=== PATIENT | female | born 1970 | race Caucasian/White ===

== ENCOUNTER → 2021-05-21 14:31 | Outpatient (BNVA) | payer MEDICARE, MEDICAID, SELFPAY | PROVIDERS: PCP Nurse Practitioner Family; Visit Provider Psychiatry & Neurology Neurology | DX: G25.1 Drug-induced tremor (principal); G43.909 Migraine, unspecified, not intractable, without status migrainosus; G47.9 Sleep disorder, unspecified | CPT/HCPCS: 99212 ==

== ENCOUNTER → 2021-07-23 13:08 | Outpatient (BNVA) | payer MEDICARE, MEDICAID, SELFPAY | PROVIDERS: PCP Nurse Practitioner Family; Visit Provider Psychiatry & Neurology Neurology | DX: G43.909 Migraine, unspecified, not intractable, without status migrainosus (principal); G47.9 Sleep disorder, unspecified; G25.1 Drug-induced tremor | CPT/HCPCS: 99212 ==

== ENCOUNTER → 2021-11-26 12:58 | Outpatient (BNVA) | payer MEDICARE, MEDICAID, SELFPAY | PROVIDERS: PCP Nurse Practitioner Family; Visit Provider Psychiatry & Neurology Neurology | DX: G43.909 Migraine, unspecified, not intractable, without status migrainosus (principal); G47.9 Sleep disorder, unspecified; G25.1 Drug-induced tremor; Z79.899 Other long term (current) drug therapy | CPT/HCPCS: 99212 ==

== ENCOUNTER → 2022-03-03 10:02 | Outpatient (BNVA) | payer MEDICARE, MEDICAID, SELFPAY | PROVIDERS: PCP Internal Medicine Cardiovascular Disease; Visit Provider Psychiatry & Neurology Neurology | DX: G43.909 Migraine, unspecified, not intractable, without status migrainosus (principal); G47.9 Sleep disorder, unspecified; G25.1 Drug-induced tremor | CPT/HCPCS: 99212 ==

== ENCOUNTER → 2022-09-15 09:25 | Outpatient (BNVA) | payer MEDICARE, MEDICAID, SELFPAY | PROVIDERS: PCP Internal Medicine Cardiovascular Disease; Visit Provider Psychiatry & Neurology Neurology | DX: G43.909 Migraine, unspecified, not intractable, without status migrainosus (principal); G47.9 Sleep disorder, unspecified | CPT/HCPCS: 99212 ==

== ENCOUNTER 2022-10-14 08:05 | Outpatient (REF) | payer MEDICARE, MEDICAID, SELFPAY ==
--- NOTE | 2022-10-14 08:08 | EEG_ITS ---
This is a 16-channel EEG with an EKG lead. The patient is reported unresponsive during the tracing. Background EEG rhythm is slow and theta to delta range with intermittent sharply controlled left hemispheric discharges at times with phase reversal at P3. Cardiac lead did not reveal any significant abnormality. Some muscle and lead artifacts were noted. IMPRESSION: Abnormal EEG suggestive of bihemispheric dysfunction, but also somewhat suggestive of left hemispheric irritability. Partial or complex partial seizure disorder is a consideration. MD FRANK Martinez/WILLIE / [phone]
== END 2022-10-14 08:06 | disposition home or self-care (01) ==
LOC: HO.NEURO 08:05
PROVIDERS: PCP Internal Medicine Cardiovascular Disease; Visit Provider Psychiatry & Neurology Neurology
DX: R41.0 Disorientation, unspecified (principal); F09 Unspecified mental disorder due to known physiological condition
CPT/HCPCS: 36415; 80053; 82306; 82607; 82746; 84443; 85025; 85652; 95816

== ENCOUNTER 2022-10-14 09:23 | Outpatient (REF) | payer MEDICARE, MEDICAID, SELFPAY ==
[2022-10-14 09:34] LABS: MANUAL DIFF FLAG NO
[2022-10-14 09:50] LABS: Basophils Percent Auto 0.4 % (0-2); Eosinophils Absolute Auto 0.1 X10*3/uL (0.0-0.4); Hematocrit 37.1 % (37.0-47.0); Hemoglobin 12.2 g/dl (12.0-16.0); Imm Gran Abs Auto 0.14 X10*3/uL (0.00-0.03); Imm Gran Pct Auto 1.8 % (0.0-0.4); Lymphocytes Absolute Auto 1.5 X10*3/uL (1.2-4.9); Lymphocytes Percent Auto 19.4 % (20-40); Mean Corpuscular HGB Conc 32.9 g/dl (31.0-35.0); Mean Corpuscular Volume 94.4 fL (80.0-98.0); Mean Platelet Volume 10.2 fL (9.4-12.3); Monocytes Absolute Auto 0.9 X10*3/uL (0.1-1.2); Monocytes Percent Auto 11.3 % (2-11); Neutrophils Absolute Auto 5.1 x10*3/uL (2.0-8.3); Neutrophils Percent Auto 66.1 % (45-73); Platelet Count 238 X10*3/uL (160-400); Red Blood Count 3.93 X10*6/uL (4.20-5.50); Red Cell Distribution Width 12.5 % (11.0-16.0); White Blood Count 7.7 X10*3/uL (4.8-10.8)
[2022-10-14 10:18] LABS: Alanine Aminotransferase 18 U/L (0-31); Albumin Level 3.8 g/dL (3.5-5.0); Alkaline Phosphatase 117 U/L (39-117); Anion Gap 13 (12-20); Aspartate Amino Transferase 17 U/L (5-31); Bilirubin Total 0.4 mg/dL (0.0-1.0); Blood Urea Nitrogen 15 mg/dL (9-16); Carbon Dioxide 25 mmol/L (22-29); Chloride 108 mmol/L (96-108); Estimated Glomerular Filt Rate > 60; Glucose Random 172 mg/dL (60-115); Potassium 4.5 mmol/L (3.3-5.1); Sodium 141 mmol/L (135-145); Total Protein 6.7 g/dL (6.5-8.0)
[2022-10-14 10:52] LABS: Erythrocyte Sedimentation Rate 28 MM/HR (0-20)
[2022-10-14 10:58] LABS: Folate > 20.0 ng/mL (> or = 4.0); TSH reflex Free T4 2.11 uIU/mL (0.32-4.0); Vitamin B12 1173 pg/mL (200-900)
[2022-10-19 15:42] LABS: Vitamin D 25-OH, D2 <4 ng/mL; Vitamin D 25-OH, D3 44 ng/mL; Vitamin D 25-OH, Total 44 ng/mL (30-100)
== END 2022-10-14 09:24 | disposition home or self-care (01) ==
LOC: HO.LAB 09:23
PROVIDERS: Psychiatry & Neurology Neurology; Visit Provider Internal Medicine Hypertension Specialist
DX: Z13.89 Encounter for screening for other disorder (principal)
CPT/HCPCS: 36415; 80053; 82306; 82607; 82746; 84443; 85025; 85652

== ENCOUNTER 2022-10-18 12:54 | Outpatient (REF) | payer MEDICARE, MEDICAID, SELFPAY ==
--- NOTE | ~2022-10-18 | MR_ITS ---
EXAMINATION: MR BRAIN WITHOUT CONTRAST CLINICAL INFORMATION: 52-year-old with cognitive disorder. COMPARISON: 03/02/2018 MRI TECHNIQUE: Multiplanar multisequence MR imaging of the brain was done without IV contrast. FINDINGS: Brain Volume: Redemonstrated is [id number] generalized diffuse frontoparietal brain parenchymal volume loss, which appears grossly stable when compared to previous study. This is associated with prominent CSF spaces along both cerebral convexities, unchanged. Structural: No malformations. Brain and Meninges: DWI sequence demonstrates no restricted diffusion to suggest acute or subacute cerebral ischemia. Redemonstrated are a few scattered tiny zones of FLAIR/T2 signal hyperintensity in the white matter of the centrum semiovale bilaterally, stable in appearance, which are nonspecific findings. No new parenchymal signal abnormalities are seen. Gradient refocused imaging demonstrates no abnormal susceptibility-weighted signal loss to suggest hemorrhage, hemosiderin staining or abnormal mineralization. No extra-axial fluid collections, significant space-occupying process or mass effect are identified. Ventricles and Subarachnoid Spaces: The ventricular system and subarachnoid spaces are within normal range; there is no hydrocephalus, stable in appearance. Orbital Structures: The visualized orbital structures are grossly unremarkable within the limitations of the study. Vascular: Signal voids are noted in the visualized major intracranial vessels. Osseous Structures, Sinuses/Mastoids, Extracranial Soft Tissues: Osseous marrow signal intensity appears within normal limits. There are retention cysts and mucosal thickening in both maxillary sinuses which have developed since the previous exam with minor mucosal thickening in the ethmoid complex. The visualized extracranial soft tissue structures are unremarkable and unchanged. MR/MR head/brain wo con IMPRESSION: 1. Stable minimal scattered nonspecific white matter T2 hyperintensities in the cerebral hemispheres. 2. Stable [id number] generalized diffuse frontoparietal brain parenchymal volume loss. 3. No acute intracranial process. 4. Paranasal sinus inflammatory changes, which are new since the previous exam, as described above.
== END 2022-10-18 12:55 | disposition home or self-care (01) ==
LOC: HO.MRI 12:54
PROVIDERS: Visit Provider Psychiatry & Neurology Neurology
DX: F09 Unspecified mental disorder due to known physiological condition (principal)
CPT/HCPCS: 70551

== ENCOUNTER → 2022-11-17 11:30 | Outpatient (BNVA) | payer MEDICARE, MEDICAID, SELFPAY | PROVIDERS: PCP Internal Medicine Cardiovascular Disease; Visit Provider Nurse Practitioner Family | DX: G43.909 Migraine, unspecified, not intractable, without status migrainosus (principal); G47.9 Sleep disorder, unspecified; G25.1 Drug-induced tremor; F09 Unspecified mental disorder due to known physiological condition; R41.0 Disorientation, unspecified | CPT/HCPCS: 99212 ==

== ENCOUNTER 2023-02-23 08:55 | Outpatient (AMB) | payer MEDICARE, MEDICAID, SELFPAY ==
--- NOTE | 2023-02-23 09:00 | A.OFFVIS_ITS ---
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: No Allergies acetaminophen [From PERCOCET] Allergy (Unknown, Verified 02/23/23 09:) UNKNOWN barium sulfate [BARIUM SULFATE] Allergy (Unknown, Verified 02/23/23 09:) UNKNOWN bupropion [From WELLBUTRIN] Allergy (Unknown, Verified 02/23/23 09:) UNK cefaclor [From CECLOR] Allergy (Unknown, Verified 02/23/23 09:) UNKNOWN erythromycin base [ERYTHROMYCIN BASE] Allergy (Unknown, Verified 02/23/23:) UNKNOWN fluoxetine [From PROZAC] Allergy (Unknown, Verified 02/23/23 09:) UNKNOWN gabapentin [GABAPENTIN] Allergy (Unknown, Verified 02/23/23 09:) UNKNOWN Iodinated Contrast Media [IV CONTRAST] Allergy (Unknown, Verified 02/23/23 09:) UNKNOWN loratadine [LORATADINE] Allergy (Unknown, Verified 02/23/23 09:) UNKNOWN metformin [METFORMIN] Allergy (Unknown, Verified 02/23/23 09:) UNKNOWN oxycodone [From PERCOCET] Allergy (Unknown, Verified 02/23/23 09:) UNKNOWN paroxetine [From PAXIL] Allergy (Unknown, Verified 02/23/23 09:) UNKNOWN penicillin G Allergy (Unknown, Verified 02/23/23 09:) unknown Penicillins [PENICILLINS] Allergy (Unknown, Verified 02/23/23 09:) UNKNOWN quetiapine [From SEROQUEL] Allergy (Unknown, Verified 02/23/23 09:) UNKNOWN risperidone [From RISPERDAL] Allergy (Unknown, Verified 02/23/23 09:) UNKNOWN soy [SOY] Allergy (Unknown, Verified 02/23/23 09:) UNKNOWN venlafaxine [From EFFEXOR] Allergy (Unknown, Verified 02/23/23 09:) UNKNOWN BuPROPion HCl Allergy (Unknown, Uncoded 02/23/23 09:) unknown Fluoxetine Allergy (Unknown, Uncoded 02/23/23 09:) unknown iodinated contrast media, oral Allergy (Unknown, Uncoded 02/23/23 09:01) unknown HPI HPI Comments History of Present Illness Details 52 y/o female comes for follow up of miriam g induced tremors and migraines. She is accompanied by her TRANSITION MGR RN who helps her history. She has visiting nurse service, twice a day. Pt's medication box is locked. RN gives her medications. Pt's TRANSITION MGR RN usually helps meals, cleaning, grocery shopping and daily activities. She has good days and bad days, but generally her memory is not good, can't remember things and forgetful. She states that her memory is ok today, can't remember other days. Sometimes she can't remember she ate and then eat again. Pt states that she did not have any headache. Pt is on topiramate 25 mg, and propranolol ER 120 mg daily. Tremors have improved and are intermittent. She is on cogentin 1mg bid. [facility] Medical History Confusion Cognitive disorder Pseudoseizures Migraine [place] toxicity Drug-induced tremor Benign essential tremor Diabetes Asthma Bipolar disorder Surgical History Hx of cholecystectomy Family History Father Diabetes mellitus Heart disease Stroke Hyperlipidemia Mother Diabetes mellitus Alzheimer disease Bipolar 1 disorder Daughter Bipolar 1 disorder Maternal Aunt Alzheimer disease Paternal Aunt Alzheimer disease Social History Alcohol intake: current Alcohol intake frequency: holidays/special occasions only Patient Tobacco Use Status: Never used Tobacco Review of Systems Const All systems reviewed & are unremarkable except as noted in HPI and below Neuro Reports Abnormal speech present (mild hypophonia) Physical Exam Vital Signs: Last Vital Signs Pulse 63 02/23/23 09:06 BP 112/70 02/23/23 09:06 Pulse Ox 98 02/23/23 09:06 Oxygen Delivery Method Room Air 02/23/23 09:06 Const Orientation/consciousness: patient oriented x3 Eyes Pupils: Equal, round and reactive pupils present Neuro Other: very mild farshad postural and action tremors in UE no head tremors General: patient oriented x3 and moves all extremities Cranial nerves: Yes Equal, round and reactive pupils present, Yes Normal facial strength present, Yes Midline tongue present and Yes Other cranial nerve findings present Cognition (Neuro): normal cognition (anxious -) Speech: Abnormal speech present (mild hypophonia) Gait exam (Neuro): Other gait observations present (mild slowness, no arm swings bilaterally) Motor exam (neuro): 5/5 motor strength present throughout and Other motor observations present (mild bradykinesia , no evidence of tardive dyskinesia ) Assessment & Plan Assessment & Plan (1) Migraine: Code(s): G43.909 - Migraine, unspecified, not intractable, without status migrainosus (2) Sleep disorder: Code(s): G47.9 - Sleep disorder, unspecified (3) Drug-induced tremor: Code(s): G25.1 - Drug-induced tremor (4) Cognitive disorder: Code(s): F09 - Unspecified mental disorder due to known physiological condition Plan Continue to take propranalol LA 120mg qd with cogentin 1 mg BID. Continue topiramate 25 mg qd for migraine prevention. Monitor the migraine frequency and intensity. Coding Level of Care Code Est Pt Level 4 (28099) Diagnoses Migraine G43.909 Sleep disorder G47.9 Drug-induced tremor G25.1 Cognitive disorder F09
[2023-02-23 09:06] VITALS: BP 112/70; PULSE 63; O2SAT 98
== END 2023-02-23 09:34 | disposition home or self-care (01) ==
PROVIDERS: PCP Internal Medicine Cardiovascular Disease; Visit Provider Nurse Practitioner Family
DX: G43.909 Migraine, unspecified, not intractable, without status migrainosus (principal); G47.9 Sleep disorder, unspecified; G25.1 Drug-induced tremor; R41.89 Other symptoms and signs involving cognitive functions and awareness
CPT/HCPCS: 99214

== ENCOUNTER → 2023-02-23 08:55 | Outpatient (BNVA) | payer MEDICARE, MEDICAID, SELFPAY | PROVIDERS: PCP Internal Medicine Cardiovascular Disease; Visit Provider Nurse Practitioner Family | DX: G43.909 Migraine, unspecified, not intractable, without status migrainosus (principal); G47.9 Sleep disorder, unspecified; G25.1 Drug-induced tremor; F09 Unspecified mental disorder due to known physiological condition | CPT/HCPCS: 99212 ==

== ENCOUNTER 2023-05-06 12:04 | Outpatient (AMB) | payer MEDICARE, MEDICAID, SELFPAY ==
[2023-05-06 12:23] VITALS: BP 114/70; PULSE 74; O2SAT 97
--- NOTE | 2023-05-06 12:23 | MHC.OFFWIV ---
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, Congestion, runny Nose Intake Note: pt is here for c/o cough, congestion, runny nose Patient Tobacco Use Status: Never used Tobacco Allergies acetaminophen [From PERCOCET] Allergy (Unknown, Verified 05/06/23 12:23) UNKNOWN barium sulfate [BARIUM SULFATE] Allergy (Unknown, Verified 05/06/23 12:23) UNKNOWN bupropion [From WELLBUTRIN] Allergy (Unknown, Verified 05/06/23 12:23) UNK cefaclor [From CECLOR] Allergy (Unknown, Verified 05/06/23 12:23) UNKNOWN erythromycin base [ERYTHROMYCIN BASE] Allergy (Unknown, Verified 05/06/23 12:23) UNKNOWN fluoxetine [From PROZAC] Allergy (Unknown, Verified 05/06/23 12:23) UNKNOWN gabapentin [GABAPENTIN] Allergy (Unknown, Verified 05/06/23 12:23) UNKNOWN Iodinated Contrast Media [IV CONTRAST] Allergy (Unknown, Verified 05/06/23 12:23) UNKNOWN loratadine [LORATADINE] Allergy (Unknown, Verified 05/06/23 12:23) UNKNOWN metformin [METFORMIN] Allergy (Unknown, Verified 05/06/23 12:23) UNKNOWN oxycodone [From PERCOCET] Allergy (Unknown, Verified 05/06/23 12:23) UNKNOWN paroxetine [From PAXIL] Allergy (Unknown, Verified 05/06/23 12:23) UNKNOWN penicillin G Allergy (Unknown, Verified 05/06/23 12:23) unknown Penicillins [PENICILLINS] Allergy (Unknown, Verified 05/06/23 12:23) UNKNOWN quetiapine [From SEROQUEL] Allergy (Unknown, Verified 05/06/23 12:23) UNKNOWN risperidone [From RISPERDAL] Allergy (Unknown, Verified 05/06/23 12:23) UNKNOWN soy [SOY] Allergy (Unknown, Verified 05/06/23 12:23) UNKNOWN venlafaxine [From EFFEXOR] Allergy (Unknown, Verified 05/06/23 12:23) UNKNOWN BuPROPion HCl Allergy (Unknown, Uncoded 02/23/23 09:01) unknown Fluoxetine Allergy (Unknown, Uncoded 02/23/23 09:01) unknown iodinated contrast media, oral Allergy (Unknown, Uncoded 02/23/23 09:01) unknown Do you need a note to return to daycare/school/sports/work: Yes HPI HPI Comments History of Present Illness Details Irwin is a 52yo F who 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 with 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 for cough Ongoing for > 1 week Sometimes productive No CP or SOB Using inhalers for baseline asthma without relief No fever, chills, congestion, ST or body aches Visiting HAND PROFILER wanted her to have chest xray COVID at home test was negative No other complaints PFSH Medical History Confusion Cognitive disorder Pseudoseizures Migraine [place] toxicity Drug-induced tremor Benign essential tremor Diabetes Asthma Bipolar disorder Surgical History Hx of cholecystectomy Family History Father Diabetes mellitus Heart disease Stroke Hyperlipidemia Mother Diabetes mellitus Alzheimer disease Bipolar 1 disorder Daughter Bipolar 1 disorder Maternal Aunt Alzheimer disease Paternal Aunt Alzheimer disease Social History Alcohol intake: current Alcohol intake frequency: holidays/special occasions only Patient Tobacco Use Status: Never used Tobacco Review of Systems Const Denies chills, Denies fever(s) and Denies headache(s) ENT Denies otalgia, Denies headache(s), Denies nasal discharge and Denies sore throat Card Denies chest pain and Denies dyspnea Resp Reports chest congestion, Reports cough and Denies dyspnea GI Denies abdominal pain Neuro Denies headache(s) Physical Exam Vital Signs: Last Vital Signs Pulse 74 05/06/23 12:23 BP 114/70 05/06/23 12:23 Pulse Ox 97 05/06/23 12:23 Oxygen Delivery Method Room Air 05/06/23 12:23 General: Non-toxic, NAD. Speaking full sentences. Skin: Warm dry throughout Eye: EOMI HENT: Airway patent. Uvula midline. No pharyngeal erythema or edema. No BUFFING WHEEL FORMER AUTOMATIC. Bilateral canals clear. TM non-erythematous, non-bulging. No TM perforation or hemotympanum noted. Respiratory: CTA bilaterally. No wheezes, rales or rhonchi Cardiac: RRR. No murmur MSK: Full ROM extremities. Neurology: Alert. No aphasia or facial droop. Gait without abnormality Psych: Good mood and affect Assessment & Plan Assessment & Plan (1) Cough: Code(s): R05.9 - Cough, unspecified Qualifiers: Cough type: acute Qualified Code(s): R05.1 - Acute cough Plan: Patient seen and evaluated. Will order xray per request visiting HAND PROFILER to r/o PNA as pt is non-specific as to timeline of current illness (states > 1 week a long time ) I viewed xray as negative Recommended PCP follow up Patient gave verbal understanding and had no additional questions or concerns at time of discharge All questions answered Orders: Orders XR chest 2V Today R05.9 - Cough, unspecified Coding Level of Care Code Est Pt Level 3 (18040) Diagnoses Acute cough R05.1 Cough type: acute
== END 2023-05-06 13:51 | disposition home or self-care (01) ==
PROVIDERS: PCP Internal Medicine Cardiovascular Disease; Visit Provider Physician Assistant
DX: R05.1 Acute cough (principal)
CPT/HCPCS: 99213

== ENCOUNTER 2023-05-06 13:02 | Outpatient (REF) | payer MEDICARE, MEDICAID, SELFPAY ==
--- NOTE | ~2023-05-06 | XR_ITS ---
EXAMINATION: XR CHEST CLINICAL INFORMATION: Cough. COMPARISON: None available. TECHNIQUE: 2 views of the chest were obtained. FINDINGS: No significant abnormality is noted involving the heart, lungs, mediastinum, bony thorax or soft tissues. XR/XR chest 2V IMPRESSION: Unremarkable chest examination.
== END 2023-05-06 13:03 | disposition home or self-care (01) ==
LOC: HO.HMGCX 13:02
PROVIDERS: PCP Internal Medicine Cardiovascular Disease; Visit Provider Physician Assistant
DX: R05.9 Cough, unspecified (principal)
CPT/HCPCS: 71046

== ENCOUNTER 2023-06-08 11:38 | Outpatient (AMB) | payer MEDICARE, MEDICAID, SELFPAY ==
--- NOTE | 2023-06-08 11:42 | MHC.OFFVIS ---
Intake Vital Signs 06/08/23 11:50 Height 5 ft 1 in Weight 157 lb 6 oz BMI 29.7 BP 120/70 Blood Pressure Location Lt brachial Position Sitting Pulse 72 Pulse Source Pulse Oximeter Pulse Oximetry (%) 98 Oxygen Delivery Method Room Air Intake Visit Reasons: 3 mo f/u - Tremors - Confirmed Intake Note: Patient presents for three months f/u would like to be off all medicine for ever and tremors not as bad they used to be Allergies acetaminophen [From PERCOCET] Allergy (Unknown, Verified 06/08/23 11:48) UNKNOWN barium sulfate [BARIUM SULFATE] Allergy (Unknown, Verified 06/08/23 11:48) UNKNOWN bupropion [From WELLBUTRIN] Allergy (Unknown, Verified 06/08/23 11:48) UNK cefaclor [From CECLOR] Allergy (Unknown, Verified 06/08/23 11:48) UNKNOWN erythromycin base [ERYTHROMYCIN BASE] Allergy (Unknown, Verified 06/08/23 11:48) UNKNOWN fluoxetine [From PROZAC] Allergy (Unknown, Verified 06/08/23 11:48) UNKNOWN gabapentin [GABAPENTIN] Allergy (Unknown, Verified 06/08/23 11:48) UNKNOWN Iodinated Contrast Media [IV CONTRAST] Allergy (Unknown, Verified 06/08/23 11:48) UNKNOWN loratadine [LORATADINE] Allergy (Unknown, Verified 06/08/23 11:48) UNKNOWN metformin [METFORMIN] Allergy (Unknown, Verified 06/08/23 11:48) UNKNOWN oxycodone [From PERCOCET] Allergy (Unknown, Verified 06/08/23 11:48) UNKNOWN paroxetine [From PAXIL] Allergy (Unknown, Verified 06/08/23 11:48) UNKNOWN penicillin G Allergy (Unknown, Verified 06/08/23 11:48) unknown Penicillins [PENICILLINS] Allergy (Unknown, Verified 06/08/23 11:48) UNKNOWN quetiapine [From SEROQUEL] Allergy (Unknown, Verified 06/08/23 11:48) UNKNOWN risperidone [From RISPERDAL] Allergy (Unknown, Verified 06/08/23 11:48) UNKNOWN soy [SOY] Allergy (Unknown, Verified 06/08/23 11:48) UNKNOWN venlafaxine [From EFFEXOR] Allergy (Unknown, Verified 06/08/23 11:48) UNKNOWN BuPROPion HCl Allergy (Unknown, Uncoded 02/23/23 09:01) unknown Fluoxetine Allergy (Unknown, Uncoded 02/23/23 09:01) unknown iodinated contrast media, oral Allergy (Unknown, Uncoded 02/23/23 09:) unknown HPI HPI Comments History of Present Illness Details 52 y/o female comes for follow up of drug induced tremors and migraines. She is accompanied by her RENDERING EQUIPMENT TENDER who helps her history. She has visiting nurse service, twice a day. Pt's medication box is locked. RN gives her medications. Pt's RENDERING EQUIPMENT TENDER usually helps meals, cleaning, grocery shopping and daily activities. She has good days and bad days, but generally her memory is not good, can't remember things and forgetful. Pt states that she did not have any headache. Pt is on topiramate 25 mg, and propranolol ER 120 mg daily. Tremors have improved and are intermittent. She is on cogentin 1mg bid and propranolol ER 120 mg daily. She can be unbalanced but no falls. She sleeps well and eating well. She is not physically active but goes to [employer] twice a week. [facility] Medical History Confusion Cognitive disorder Pseudoseizures Migraine [place] toxicity Drug-induced tremor Benign essential tremor Diabetes Asthma Bipolar disorder Surgical History Hx of cholecystectomy Family History Father Diabetes mellitus Heart disease Stroke Hyperlipidemia Mother Diabetes mellitus Alzheimer disease Bipolar 1 disorder Daughter Bipolar 1 disorder Maternal Aunt Alzheimer disease Paternal Aunt Alzheimer disease Social History Alcohol intake: current Alcohol intake frequency: holidays/special occasions only Patient Tobacco Use Status: Never used Tobacco Review of Systems Const All systems reviewed & are unremarkable except as noted in HPI and below Neuro Reports Abnormal speech present (mild hypophonia) Physical Exam Vital Signs: Last Vital Signs Pulse 72 06/08/23 11:50 BP 120/70 06/08/23 11:50 Pulse Ox 98 06/08/23 11:50 Oxygen Delivery Method Room Air 06/08/23 11:50 BMI result Body Mass Index 29.7 Const Orientation/consciousness: patient oriented x3 Eyes Pupils: Equal, round and reactive pupils present Neuro Other: very mild farshad postural and action tremors in UE no head tremors General: patient oriented x3 and moves all extremities Cranial nerves: Yes Equal, round and reactive pupils present, Yes Normal facial strength present, Yes Midline tongue present and Yes Other cranial nerve findings present Cognition (Neuro): normal cognition (anxious -) Speech: Abnormal speech present (mild hypophonia) Gait exam (Neuro): Other gait observations present (mild slowness, no arm swings bilaterally) Motor exam (neuro): 5/5 motor strength present throughout and Other motor observations present (mild bradykinesia , no evidence of tardive dyskinesia ) Assessment & Plan Assessment & Plan (1) Migraine: Code(s): G43.909 - Migraine, unspecified, not intractable, without status migrainosus (2) Sleep disorder: Code(s): G47.9 - Sleep disorder, unspecified (3) Drug-induced tremor: Code(s): G25.1 - Drug-induced tremor (4) Cognitive disorder: Code(s): F09 - Unspecified mental disorder due to known physiological condition Plan Continue to take propranalol LA 120mg qd with cogentin 1 mg BID. Continue topiramate 25 mg qd for migraine prevention. Monitor the migraine frequency and intensity. Coding Level of Care Code Est Pt Level 4 (12576) Diagnoses Migraine G43.909 Sleep disorder G47.9 Drug-induced tremor G25.1 Cognitive disorder F09
[2023-06-08 11:50] VITALS: BP 120/70; PULSE 72; O2SAT 98; BMI 29.7
== END 2023-06-08 12:15 | disposition home or self-care (01) ==
PROVIDERS: PCP Internal Medicine Cardiovascular Disease; Visit Provider Nurse Practitioner Family
DX: G43.909 Migraine, unspecified, not intractable, without status migrainosus (principal); G47.9 Sleep disorder, unspecified; G25.1 Drug-induced tremor; R41.89 Other symptoms and signs involving cognitive functions and awareness
CPT/HCPCS: 99214

== ENCOUNTER → 2023-06-08 11:38 | Outpatient (BNVA) | payer MEDICARE, MEDICAID, SELFPAY | PROVIDERS: PCP Internal Medicine Cardiovascular Disease; Visit Provider Nurse Practitioner Family | DX: G43.909 Migraine, unspecified, not intractable, without status migrainosus (principal); G47.9 Sleep disorder, unspecified; G25.1 Drug-induced tremor; F09 Unspecified mental disorder due to known physiological condition | CPT/HCPCS: 99212 ==

== ENCOUNTER 2024-02-21 12:20 | Outpatient (AMB) | payer MEDICARE, MEDICAID, SELFPAY ==
[2024-02-21 12:34] VITALS: BP 126/78; BMI 29.7
--- NOTE | 2024-02-21 12:34 | MHC.OFFVIS ---
Vital Signs 02/21/24 12:34 Height 5 ft 1 in Weight 157 lb BMI 29.7 BP 126/78 Blood Pressure Location Rt brachial Position Sitting Intake Visit Reasons: 6 mnts for Tremors Intake Note: Patient presents for tremors. Allergies acetaminophen [From PERCOCET] Allergy (Unknown, Verified 02/21/24 12:36) UNKNOWN barium sulfate [BARIUM SULFATE] Allergy (Unknown, Verified 02/21/24 12:36) UNKNOWN bupropion [From WELLBUTRIN] Allergy (Unknown, Verified 02/21/24 12:36) UNK cefaclor [From CECLOR] Allergy (Unknown, Verified 02/21/24 12:36) UNKNOWN erythromycin base [ERYTHROMYCIN BASE] Allergy (Unknown, Verified 02/21/24 12:36) UNKNOWN fluoxetine [From PROZAC] Allergy (Unknown, Verified 02/21/24 12:36) UNKNOWN gabapentin [GABAPENTIN] Allergy (Unknown, Verified 02/21/24 12:36) UNKNOWN Iodinated Contrast Media [IV CONTRAST] Allergy (Unknown, Verified 02/21/24 12:36) UNKNOWN loratadine [LORATADINE] Allergy (Unknown, Verified 02/21/24 12:36) UNKNOWN metformin [METFORMIN] Allergy (Unknown, Verified 02/21/24 12:36) UNKNOWN oxycodone [From PERCOCET] Allergy (Unknown, Verified 02/21/24 12:36) UNKNOWN paroxetine [From PAXIL] Allergy (Unknown, Verified 02/21/24 12:36) UNKNOWN penicillin G Allergy (Unknown, Verified 02/21/24 12:36) unknown Penicillins [PENICILLINS] Allergy (Unknown, Verified 02/21/24 12:36) UNKNOWN quetiapine [From SEROQUEL] Allergy (Unknown, Verified 02/21/24 12:36) UNKNOWN risperidone [From RISPERDAL] Allergy (Unknown, Verified 02/21/24 12:36) UNKNOWN soy [SOY] Allergy (Unknown, Verified 02/21/24 12:36) UNKNOWN venlafaxine [From EFFEXOR] Allergy (Unknown, Verified 02/21/24 12:36) UNKNOWN BuPROPion HCl Allergy (Unknown, Uncoded 02/21/24 12:36) unknown Fluoxetine Allergy (Unknown, Uncoded 02/21/24 12:36) unknown iodinated contrast media, oral Allergy (Unknown, Uncoded 02/21/24 12:36) unknown Medication List - Last Reconciled 02/21/24 by Mariposa Casillas MD albuterol sulfate 90 mcg/actuation 0 mcg inhalation benztropine 1 mg PO BID 30 days blood sugar diagnostic (FreeStyle Lite Strips) As directed budesonide-formoterol 160-4.5 mcg/actuation (Symbicort) 2 puffs inhalation Q12H divalproex 500 mg PO .am divalproex ER 1,000 mg PO BEDTIME insulin detemir U-100 (Levemir U-100 Insulin) 34 units subcut daily; insulin syringe-needle U-100 (BD Insulin Syringe Ultra-Fine) As directed lancets (FreeStyle Lancets) As directed levothyroxine 50 mcg PO DAILY lurasidone 120 mg PO DAILY oytcpyuitswq-vqby-sntdm acid 18-400 mg-mcg (Certavite-Antioxidant) 1 tab PO DAILY oxcarbazepine 600 mg PO BID pantoprazole 20 mg PO DAILY pravastatin 40 mg PO DAILY pravastatin 40 mg PO DAILY propranolol ER 120 mg PO DAILY topiramate 25 mg PO DAILY umeclidinium 62.5 mcg/actuation (Incruse Ellipta) 1 inh PO DAILY HPI Comments Details: 53 y/o female comes for follow up of drug induced tremors and migraines. she is concerned about her memory issues.Mood is stable.Its more short term memory issues. The cognition fluctuates She is accompanied by her BOX FEEDER who helps her history. She has visiting nurse service, twice a day. Pt's medication box is locked. RN gives her medications. Pt's BOX FEEDER usually helps meals, cleaning, grocery shopping and daily activities. Pt states that she did not have any headache. Pt is on topiramate 25 mg, and propranolol ER 120 mg daily. Tremors have improved and are intermittent. She is on cogentin 1mg bid and propranolol ER 120 mg daily. She can be unbalanced but no falls. She sleeps well and eating well. She is not physically active but goes to voodoo twice a week. [facility] Medical History Confusion Cognitive disorder Pseudoseizures Migraine [place] toxicity Drug-induced tremor Benign essential tremor Diabetes Asthma Bipolar disorder Surgical History Hx of cholecystectomy Family History Father Diabetes mellitus Heart disease Stroke Hyperlipidemia Mother Diabetes mellitus Alzheimer disease Bipolar 1 disorder Daughter Bipolar 1 disorder Maternal Aunt Alzheimer disease Paternal Aunt Alzheimer disease Social History Alcohol intake: current Alcohol intake frequency: holidays/special occasions only Patient Tobacco Use Status: Never used Tobacco Review of Systems Neuro Reports Abnormal speech present (mild hypophonia) Physical Exam Vital Signs: Last Vital Signs BP 126/78 02/21/24 12:34 BMI result Body Mass Index 29.7 Const Orientation/consciousness: patient oriented x3 Eyes Pupils: Equal, round and reactive pupils present Neuro Other: very mild farshad postural and action tremors in UE no head tremors General: patient oriented x3 and moves all extremities Cranial nerves: Yes Equal, round and reactive pupils present, Yes Normal facial strength present, Yes Midline tongue present and Yes Other cranial nerve findings present Cognition (Neuro): normal cognition (anxious -) Speech: Abnormal speech present (mild hypophonia) Gait exam (Neuro): Other gait observations present (mild slowness, no arm swings bilaterally) Motor exam (neuro): 5/5 motor strength present throughout and Other motor observations present (mild bradykinesia , no evidence of tardive dyskinesia ) Orientation What is the (year) (season) (date) (day) (month)?: year, season, day and month Where are we (state) (county) (town or city) (hospital) (floor)?: state, town or city, hospital/clinic and floor Registration Name of 3 unrelated objects clearly and slowly, then ask patient to repeat all 3 of them. (1st repeat determines score. Make sure they can repeat all three): object 1, object 2 and object 3 Attention & Calculation (CHOOSE ONE) Spell WORLD backwards (DLROW): 5 letters Recall Ask patient to repeat the 3 items from question #3.: object 1, object 2 and object 3 Language Show patient a wristwatch & ask what it is. Repeat for pencil.: watch and pencil Ask the patient to repeat the phrase 'No ifs, ands, or buts' after you.: correct Ask the patient to 'take a piece of paper with their right hand' 'fold paper in half' 'place paper on floor': take paper in right hand, fold paper in half and place paper on floor Print the sentence 'CLOSE YOUR EYES' on a piece. If patient actually closes eyes then score.: followed written direction Give patient a blank piece of paper & ask to write a sentence. Score if it contains a noun & verb.: sentence contains subject and verb Ask patient to copy figure of intersecting pentagons exactly. Score if all 10 angles & 2 intersects are included.: all 10 angles present & 2 are intersected Score Score: 28 Assessment & Plan Assessment & Plan (1) Migraine: Code(s): G43.909 - Migraine, unspecified, not intractable, without status migrainosus Qualifiers: Migraine type: unspecified Status migrainosus presence: without status migrainosus Intractability: not intractable Qualified Code(s): G43.909 - Migraine, unspecified, not intractable, without status migrainosus (2) Sleep disorder: Code(s): G47.9 - Sleep disorder, unspecified (3) Drug-induced tremor: Code(s): G25.1 - Drug-induced tremor Category: Medical (4) Cognitive disorder: Code(s): F09 - Unspecified mental disorder due to known physiological condition Category: Medical Plan Continue to take propranalol LA 120mg qd with cogentin 1 mg BID. Continue topiramate 25 mg qd for migraine prevention. Monitor the migraine frequency and intensity. she did well on MINI MENTAL STATUS EXAM I will refer her to cognitive therapy Orders: Referrals Speech and Hearing Referral F09 - Unspecified mental disorder due to known physiological condition Coding Level of Care Code Est Pt Level 4 (53743) Complex EM visit Add On G2211 Diagnoses Migraine without status migrainosus, not intractable, unspecified migraine type G43.909 Migraine type: unspecified Status migrainosus presence: without status migrainosus Intractability: not intractable Sleep disorder G47.9 Drug-induced tremor G25.1 Cognitive disorder F09
== END 2024-02-21 13:05 | disposition home or self-care (01) ==
PROVIDERS: PCP Internal Medicine Cardiovascular Disease; Visit Provider Psychiatry & Neurology Neurology
DX: G43.909 Migraine, unspecified, not intractable, without status migrainosus (principal); F09 Unspecified mental disorder due to known physiological condition; G47.9 Sleep disorder, unspecified; G25.1 Drug-induced tremor
CPT/HCPCS: 99214; G2211

== ENCOUNTER → 2024-02-21 12:20 | Outpatient (BNVA) | payer MEDICARE, MEDICAID, SELFPAY | PROVIDERS: PCP Internal Medicine Cardiovascular Disease; Visit Provider Psychiatry & Neurology Neurology | DX: G43.009 Migraine without aura, not intractable, without status migrainosus (principal); G47.9 Sleep disorder, unspecified; G25.1 Drug-induced tremor | CPT/HCPCS: 99212 ==

== ENCOUNTER 2024-05-29 12:28 | Outpatient (RCR) | payer MEDICARE, MEDICAID, SELFPAY ==
--- NOTE | 2024-06-02 14:35 | MHC.SP.ADU ---
Referring provider: Mariposa Casillas MD Reason for Referral: Cognitive Assessment Type of Treatment: 52841 Standardized Cognitive Performance Testing, per hour Date of Plan of Treatment: 05/29/24 Onset of Symptoms/Illness: 02/21/24 Date Treatment Started: 05/29/24 Medical Diagnosis: Unspecified mental disorder due to known physiological condition. drug induced tremors, migraines, bipolar disorder Primary Speech Language Diagnosis: I69.911 Memory deficit Secondary Speech Language Diagnosis: R41.840 Attention and concentration deficit History Marlin Ponce is a 53 year old woman who came to the clinic today on referral from her Neurologist, Dr. Casillas. In February, Marlin expressed concern to Dr. Casillas about her memory. Today, at this appointment, she initially stated Everyone says I have a problem with my memory, but I don't. However at the end the evaluation she stated Everyone thinks I am faking my problems with my memory, but I really have a problem. On her intake form, Marlin endorsed frequently having difficulty expressing her thoughts and with focus and attention. She noted that she sometimes has difficulty with orientation/memory and problem solving, but no difficulty with following directions or understanding others. Notes from her physician indicate that she has been seeing her neurologist for needs associated with migraines and drug induced tremor. Marlin reported that she attended school through High School, mostly in [place] and [place], however her education was disrupted by a teen and marriage, which resulted in her moving in with her in a different state ([place]) before she had finished school. She reported that her marriage ended after she finished High School, leading to her relocation to this area with her daughter to briefly live with her mother and her mother's new boyfriend before living independently. She currently lives in [place], and currently and mostly has lived on disability, however she reported that she did work for [employer] for a period of time. Marlin has been involved with the [employer] for most of her life and is very active and dedicated to her brendon and brendon community. She was brought to today's appointment by a friend from the community. Medical information from her neurologist indicates Marlin has a diagnosis of bipolar disorder, with further indication that her mother and daughter also have this disorder. Further, information supplied indicate her mother, maternal aunt and paternal aunt all had Alzheimer's Disease. Marlin mentioned during the evaluation that her Mother had difficulty with her memory. Medical History: Other: cognitive disorder, pseudo-seizures, migraine, drug induced tremor, benign essential tremor, diabetes, asthma, bipolar disorder. Medication List: Please see chart. Recent Hospitalizations: No Respiratory Needs: Room Air Patient Orientation: Alert & Oriented x 4 Social History: Employment Status: Unemployed Highest level of education obtained: Completed High School/GED Current Living Situation: Lives independently in private residence in [place], with COMMERCIAL PHOTOGRAPHER assistance during the week. Past Speech Language Therapy: None reported. Other Therapies Seen in Current Calendar Year: None Reported Speech, Language, Cognition difficulties: Attention, Memory, Cognition Comments: On evaluation today, Marlin presents with a moderate to severe impairment of short term memory, learning/recall of new information and focus/attention. Quality of Life: Good Patient Stated Goal of Speech-Language Therapy: Assess for Cognitive Therapy Assessment Speech Production: Articulate Clinical Impression: Did Not Test Observations: No speech related issues were indicated, all within functional limits. Informal Voice Assessment: Voice Loudness: Normal Voice Nasal Resonance: Normal Voice Oral Resonance: Normal Voice Pitch: Normal Clinical Impression: Intact Clinicial Observations: No vocal issues indicated, all within functional limits. Tests of Cognition: RBANS Clinical Impression: Impaired Observations: The Repeatable Battery for the Assessment of Neuropsychological Status (RBANS) was used as a screening instrument to briefly assess Marlin?s cognitive skills. The RBANS-(Updated Form A) briefly assesses aspects of cognitive memory, language, and attention skills. The RBANS is considered a screening battery for cognitive function and is repeatable for the purpose of evaluating any changes in function. It is intended for use with adolescents and adults, ages 12 to 89 years. Composite domains assessed in this test are: Immediate Memory, Visuospatial/Constructional, Language, Attention, and Delayed Memory. Interpretation of test performance is based on normative data on individuals between ages 60-60. Marlin's performance is summarized below: IMMEDIATE MEMORY: This domain assesses the individual's ability to remember information immediately after it is presented. For the ?List Learning? task, Marlin was read a list of 10 words and asked to repeat back as many words as she could. She was then read the same list four times. Marlin found this task, overall, very frustrating. Initially, Marlin recalled four words from the list. On subsequent trials, she again recalled 4-5 items from the list, in a somewhat scattershot pattern, later explaining she was trying to focus each time on different parts of the list (indicating some degree of problem solving with the task). This resulted in a well below average score on this subtest. On the ?Story Memory? task, a brief story is read by the examiner two times, with the subject required to repeat back as much as they remember each time. Marlin appeared somewhat overwhelmed by this two sentence story, recalling initially only three details. with repetitions she was able to recall three more details, showing some improvement. However the score on this subtest also fell in the well below average range. Both scores, cumulatively, were below average, indicating limited skills in short term memory for auditory information. List Learning Total Score: 7 Scaled Score: 2 Interpretation: Below Average Story Memory Total Score: 7 Scaled Score: 2 Interpretation: Below Average Immediate Memory Index Score: 44 Percentile: < 0.1 Interpretation: Below Average VISUOSPATIAL/CONSTRUCTIONAL: This domain assesses the individual's ability to perceive spatial relations and to construct a spatially accurate copy of a drawing. During the Figure Copy task, Marlin was given an example of a specific figure to copy onto a piece of paper. Individuals are scored on both the drawing accuracy and placement of 10 different target items. Marlin?s drawing was close to the example drawing; with evidence of unsteady hand (due to tremor) and omission of one element, demonstrating an average score. Marlin worked slowly and methodically through the Line Orientation task, in which an individual is asked to transpose two line segments of an angle to a compass diagram above it, and to label each segment. Despite her slow and methodical pace, she made a few errors. Her score on this test fell in the borderline average range. These scores combined for this domain, resulted in a borderline average score overall. Figure Copy Total Score: 17 Scaled Score: 8 Interpretation: Low Average Line Orientation Total Score: 14 Percentile Group: 17-25 Interpretation: Borderline Average Visuospatial/Constructional Index Score: 84 Percentile: 15 Interpretation: Borderline Average LANGUAGE: This domain assesses the individual's ability to respond verbally to either naming or retrieving learned material. Marlin was asked to label various line drawings in a responsive naming task; and then asked to name as many fruits and vegetables as she could in one minute in a Semantic Fluency task. Marlin accurately named 10 of 10 drawings, demonstrating an above average score. Marlin then labeled only fruits and vegetables in one minute, clearly struggling with this task and giving up before the time period ended. This resulted in a well below average score for this subtest. The combined scores resulted in a below average score overall for this domain. Marlin has no difficulty recalling words in a labelling task, however in a generative task with time constraints, she demonstrated marked difficulty. Picture Naming Total Score: 10 Percentile Group: 51-75 Interpretation: High average Semantic Fluency Total Score: 6 Scaled Score: 1 Interpretation: Below Average Language Index Score: 71 Percentile: 3 Interpretation: Below Average ATTENTION: This domain assesses the individual's capacity to remember and manipulate both visually and orally presented information in short-term memory storage Marlin was read aloud strings of numbers of varying lengths then asked to recall the numbers. Marlin accurately recalled strings of numbers up to 4 digits with no difficulty, but then scrambled or perseverated on numbers on strings of 5 digits or above. In the coding subtest, Marlin was asked to write numbers to their matching symbols as quickly and efficiently as possible within 90 seconds. Marlin worked very slowly, carefully and accurately through this task, marking only 23 symbols in allotted time, which resulted in a below average score. For the overall ?Attention? domain score, Anju fell in the below average range for her age group. Digit Span Total Score: 6 Scaled Score: 4 Interpretation: Below Average Coding Total Score: 23 Scaled Score: 3 Interpretation: Below Average Attention Index Score: 56 Percentile: 0.1 Interpretation: Below Average DELAYED MEMORY: This domain assesses the individual's anterograde memory capacity. Low scores indicate difficulties with recognition and retrieval of information from long-term memory stores. Marlin recalled none of the ten words on the wordlist that was presented to her earlier in the testing, demonstrating a below average score on this task. When given a recognition task regarding words on the list (i.e. ?Was apple on the list??), Marlin answered these yes/no questions which appeared to aid her recall, however her score was below average on this subtest. On recalling the story that was read to her at the beginning of the assessment, Marlin was unable to recall any element of the story, resulting in a below average score. Finally, when asked to recall the figure she peter earlier from memory, she produced a drawing unrelated to the original (a series of rectangles and boxes). In this domain overall, Marlin demonstrated below average ability for her age group. List Recall Total Score: 0 Percentile Group: <.2 Interpretation: Below Average List Recognition Total Score: 14 Percentile Group: <2 Interpretation: Below Average Story Recall Total Score: 0 Scaled Score: 1 Interpretation: Below Average Figure Recall Total Score: 0 Scaled Score: 1 Interpretation: Below Average Delayed Memory Index Score: 44 Percentile: < 0.1 Interpretation: Below Average The Total Test Score on the RBANS represents a summation of the individual index scores across five cognitive domains, providing an overall measure of a person's cognitive functioning, with a higher score indicating better cognitive performance; a mean score of 100 is considered average, and a standard deviation of 15 is used to interpret the severity of any cognitive impairment based on the individual's score relative to the norm. On the total test, Marlin demonstrated a below average score overall. TOTAL TEST: Sum of Index Scores: 299 Total Scale Score: 52 Percentile: 0.1 Interpretation: Below Average Impressions and Recommendations Summary: Overall, on this brief screening of cognitive function, Marlin presents with a moderate to severe impairment of her short term memory, learning/recall of new information and focus/attention. Marlin found most of the tasks on this assessment very frustrating, and the level of frustration and difficulty may have lead to slightly lower scores than anticipated. However, tasks that were related to short term recall of information presented auditorily was markedly impaired, as was delayed recall of information, including visual information presented earlier. Marlin can bring focused attention to clerical tasks, but tends to work very slowly and methodically through these types of activities. She is able to readily retrieve words when labelling items, but does struggle if she needs to generate lists of information. Pointedly, this evaluation is not comprehensive of her general cognitive skills, and for more in depth and diagnostic information, Marlin should be evaluated by a Neuropsychologist. Given the information obtained on this brief evaluation, however, Marlin may find learning and acquiring strategies to manage her cognitive needs challenging. Marlin demonstrated varying insight into her difficulties. It is recommended that she return for a trial period of therapy to determine her potential benefit. It is important for friends and family members close Marlin to know that remembering and recalling information and details will be very challenging, and that learning new tasks, however mundane, may take more time, and will need structure and practice in order to complete them. It may be at times hard to anticipate what she might have difficulty with or what she cannot remember. Given her family history of dementia, it is strongly recommended she be further evaluated by a Neuropsychologist for further guidance. Impact on Daily Function/Activity Limitations: Daily Activities: Moderate Interpersonal Interactions: Moderate Education: Severe Employment: Severe Community: Moderate Prognosis for Improvement: Guarded Recommendation for Speech Therapy: Outpatient Speech Therapy Frequency/Duration: One, forty five minute session weekly, for a period of 4-6 weeks Date Range for Service Requested: 4-6 weeks. Time to Reassess: PRN Surgical Supplies Sterilizer Goals: Marlin will apply strategies, applications and accommodations to manage tasks that require immediate recall, attention and learning in four out of five contexts. Short Term Goals: Goal # : Goal # 1 : Marlin will use a rehearsal strategy to recall a detail or specific information from visual or verbal presented information with 80% accuracy Goal Status: Goal# : Goal# 2 : Marlin will use a visualization strategy to recall a detail or specific information from verbally presented information with 80% accuracy. Goal Status: Goal # : Goal # 3: Marlin will use an association strategy to retain and retrieve specific information from visually or verbally presented information with 80% accuracy. Goal Status: Goal # : Goal # 4: Marlin will electively use an sherrie or tech device to record and retrieve needed information in four out of five contexts. Goal Status: Recommended Referrals to be Discussed with Primary Care Provider: Neuropsychological Evaluation Patient Education: Completed: Yes Patient/Caregiver Education: n/a Comments/Barriers to Learning: Memory impairment Winchman/Crane Operator Clinican/Clinical Fellow: No Supervisory Statement: N/A Speech Language Pathologist: Margo Fatima M.A., CCC-HANDLE BENDER
== END 2024-08-02 15:03 | disposition still patient (30) ==
LOC: HO.SH 12:28
PROVIDERS: PCP Internal Medicine Cardiovascular Disease; Visit Provider Psychiatry & Neurology Neurology
DX: F09 Unspecified mental disorder due to known physiological condition (principal)
CPT/HCPCS: 96125

== ENCOUNTER 2024-08-22 21:47 | Emergency (ER) | payer MEDICARE, MEDICAID, SELFPAY ==
--- NOTE | 2024-08-22 | ECG_ITS ---
Test Reason : SEIZURE Blood Pressure : */* mmHG Vent. Rate : 57 BPM Atrial Rate : 57 BPM P-R Int : 222 ms QRS Dur : 86 ms QT Int : 432 ms P-R-T Axes : 30 -5 28 degrees QTcB Int : 420 ms Sinus bradycardia with 1st degree A-V block Minimal voltage criteria for LVH, may be normal variant ( R in aVL ) ST & T wave abnormality, consider anterior ischemia Abnormal ECG When compared with ECG of 19-Nov-2017 20:52, VA interval has increased Nonspecific T wave abnormality, worse in Lateral leads Referred By: Generic ED Physician Electronically Signed By: Salvador Coffey
[2024-08-22 21:52] VITALS: BP 126/75; BP 141/70; PULSE 63; PULSE 78; RESP 16; TEMP 36.3; O2SAT 100; O2SAT 98; BMI 28.3
[2024-08-22 22:30] LABS: MANUAL DIFF FLAG NO
[2024-08-22 22:31] LABS: Basophils Percent Auto 0.5 % (0-2); Eosinophils Absolute Auto 0.2 X10*3/uL (0.0-0.4); Eosinophils Percent Auto 2.6 % (0-4); Hemoglobin 12.6 g/dl (12.0-16.0); Imm Gran Abs Auto 0.06 X10*3/uL (0.00-0.03); Imm Gran Pct Auto 0.8 % (0.0-0.4); Lymphocytes Absolute Auto 2.3 X10*3/uL (1.2-4.9); Lymphocytes Percent Auto 30.3 % (20-40); Mean Corpuscular HGB Conc 37.1 g/dl (31.0-35.0); Mean Corpuscular Volume 86.3 fL (80.0-98.0); Mean Platelet Volume 10.5 fL (9.4-12.3); Monocytes Absolute Auto 0.7 X10*3/uL (0.1-1.2); Monocytes Percent Auto 9.7 % (2-11); Neutrophils Absolute Auto 4.3 x10*3/uL (2.0-8.3); Neutrophils Percent Auto 56.1 % (45-73); Platelet Count 224 X10*3/uL (160-400); Red Blood Count 3.94 X10*6/uL (4.20-5.50); Red Cell Distribution Width 11.9 % (11.0-16.0); White Blood Count 7.7 X10*3/uL (4.8-10.8)
[2024-08-22 22:46] LABS: Alanine Aminotransferase 17 U/L (0-31); Albumin Level 3.9 g/dL (3.5-5.0); Alkaline Phosphatase 117 U/L (39-117); Anion Gap 13 (12-20); Aspartate Amino Transferase 27 U/L (5-31); Bilirubin Total 0.2 mg/dL (0.0-1.0); Blood Urea Nitrogen 15 mg/dL (9-16); Calcium 8.7 mg/dL (8.4-10.2); Carbon Dioxide 22 mmol/L (22-29); Chloride 100 mmol/L (96-108); Creatinine Clr Calc Pharmacy 88.7; Estimated Glomerular Filt Rate > 60; Glucose Random 129 mg/dL (60-115); Potassium 4.3 mmol/L (3.3-5.1); Sodium 131 mmol/L (135-145); Total Protein 6.9 g/dL (6.5-8.0)
[2024-08-23 02:59] VITALS: BP 136/54; PULSE 62; RESP 15; TEMP 36.6; O2SAT 99
[2024-08-23 05:04] VITALS: BP 97/61; PULSE 66; RESP 12; TEMP 36.2; O2SAT 97
[2024-08-23 07:59] VITALS: BP 125/65; PULSE 55; RESP 18; TEMP 36.7; O2SAT 97
--- NOTE | 2024-08-23 08:20 | ED_ITS ---
HPI - Seizure General Chief Complaint: Seizure Stated Complaint: pseudo seizure lasted 20min Time Seen by Provider: 08/23/24 07:55 History of Present Illness HPI Narrative: Patient is a 54-year-old female with a history of pseudo-seizure. Was at [facility]. Had an episode of questionable seizure patient is awake alert talking shaking in the arms and legs. Witnessed by true scores. At a history of pseudoseizures in the past. Patient claims she is under lot of stress he has no chest pain or shortness breath no dizziness no focal weakness. From home. Place: [facility] Related Data Home Medications ?Medication ?Instructions ?Recorded ?Confirmed budesonide-formoterol HFA 160 2 puff inhalation Q12H 05/21/21 02/21/24 mcg-4.5 mcg/actuation aerosol inhaler (Symbicort) insulin detemir U-100 100 unit/mL See Rx Instructions subcut .COMPLEX 05/21/21 02/21/24 subcutaneous solution (Levemir U-100 Insulin) levothyroxine 50 mcg tablet 50 mcg PO DAILY 05/21/21 02/21/24 oxcarbazepine 600 mg tablet 600 mg PO BID 05/21/21 02/21/24 pantoprazole 20 mg tablet,delayed 20 mg PO DAILY 05/21/21 02/21/24 release blood sugar diagnostic (FreeStyle #10 ea 07/23/21 02/21/24 Lite Strips) insulin syringe-needle U-100 0.5 #10 ea 07/23/21 02/21/24 mL 31 gauge x 5/16 (BD Insulin Syringe Ultra-Fine) umeclidinium 62.5 mcg/actuation 1 inh PO DAILY 07/23/21 02/21/24 blister powder for inhalation (Incruse Ellipta) albuterol sulfate 90 mcg/actuation 0 mcg inhalation 03/03/22 02/21/24 aerosol inhaler divalproex 500 mg tablet,extended 1,000 mg PO BEDTIME 03/03/22 02/21/24 release 24 hr multivitamin-ferrous 1 tab PO DAILY 03/03/22 02/21/24 fumarate-folic acid 18 mg-400 mcg tablet (Certavite-Antioxidant) lancets 28 gauge (FreeStyle #100 ea 03/07/22 02/21/24 Lancets) divalproex 500 mg tablet,delayed 500 mg PO .am 11/17/22 02/21/24 release pravastatin 20 mg tablet 40 mg PO DAILY 02/23/23 02/21/24 lurasidone 120 mg tablet 120 mg PO DAILY 05/06/23 02/21/24 pravastatin 40 mg tablet 40 mg PO DAILY 05/06/23 02/21/24 Previous Rx's ?Medication ?Instructions ?Recorded propranolol 120 mg capsule,24 120 mg PO DAILY #30 caps 03/05/24 hr,extended release topiramate 25 mg tablet 25 mg PO DAILY #90 tabs 04/17/24 benztropine 1 mg tablet 1 mg PO BID 30 days #60 tabs 06/21/24 Allergies Allergy/AdvReac Type Severity Reaction Status Date / Time acetaminophen [From PERCOCET] Allergy Unknown UNKNOWN Verified 08/22/24 21:58 barium sulfate Allergy Unknown UNKNOWN Verified 08/22/24 21:58 [BARIUM SULFATE] bupropion [From WELLBUTRIN] Allergy Unknown UNK Verified 08/22/24 21:58 cefaclor [From CECLOR] Allergy Unknown UNKNOWN Verified 08/22/24 21:58 erythromycin base Allergy Unknown UNKNOWN Verified 08/22/24 21:58 [ERYTHROMYCIN BASE] fluoxetine [From PROZAC] Allergy Unknown UNKNOWN Verified 08/22/24 21:58 gabapentin [GABAPENTIN] Allergy Unknown UNKNOWN Verified 08/22/24 21:58 Iodinated Contrast Media Allergy Unknown UNKNOWN Verified 08/22/24 21:58 [IV CONTRAST] loratadine [LORATADINE] Allergy Unknown UNKNOWN Verified 08/22/24 21:58 metformin [METFORMIN] Allergy Unknown UNKNOWN Verified 08/22/24 21:58 oxycodone [From PERCOCET] Allergy Unknown UNKNOWN Verified 08/22/24 21:58 paroxetine [From PAXIL] Allergy Unknown UNKNOWN Verified 08/22/24 21:58 penicillin G Allergy Unknown unknown Verified 08/22/24 21:58 Penicillins [PENICILLINS] Allergy Unknown UNKNOWN Verified 08/22/24 21:58 quetiapine [From SEROQUEL] Allergy Unknown UNKNOWN Verified 08/22/24 21:58 risperidone [From RISPERDAL] Allergy Unknown UNKNOWN Verified 08/22/24 21:58 soy [SOY] Allergy Unknown UNKNOWN Verified 08/22/24 21:58 venlafaxine [From EFFEXOR] Allergy Unknown UNKNOWN Verified 08/22/24 21:58 BuPROPion HCl Allergy Unknown unknown Uncoded 02/21/24 12:36 Fluoxetine Allergy Unknown unknown Uncoded 02/21/24 12:36 iodinated contrast media, Allergy Unknown unknown Uncoded 02/21/24 12:36 oral Review of Systems 2 Review of Systems: No fever no chills no chest pain or shortness of breath PMFSH Past Medical History Medical History Confusion Cognitive disorder Pseudoseizures Migraine [place] toxicity Drug-induced tremor Benign essential tremor Diabetes Asthma Bipolar disorder Surgical History Hx of cholecystectomy Family History Family History Father Diabetes mellitus Heart disease Stroke Hyperlipidemia Mother Diabetes mellitus Alzheimer disease Bipolar 1 disorder Daughter Bipolar 1 disorder Maternal Aunt Alzheimer disease Paternal Aunt Alzheimer disease Social History Social History Alcohol intake: current Alcohol intake frequency: does not drink Patient Tobacco Use Status: Never used Tobacco Smoked in Last 30 Days: No Use of substances other than those prescribed or required for medical reasons: No Advance Directives: No Advance Directives Information Provided: Yes Patient : No Physical Exam 2 Vital Signs: Vital Signs: Last Vital Signs Temp 98.0 F 08/23/24 07:59 Pulse 55 08/23/24 07:59 Resp 18 08/23/24 07:59 BP 125/65 08/23/24 07:59 Pulse Ox 97 08/23/24 07:59 O2 Del Method Room Air 08/23/24 07:59 BMI result Body Mass Index 28.3 Appearance: Alert. Oriented X3. No acute distress. Eyes: Pupils equal, round and reactive to light. ENT: Pharynx normal. Neck: Normal inspection. Neck supple. No lymph nodes noted. No crepitus CVS: Normal heart rate and rhythm. Pulses normal. Normal S1 and S2 Respiratory: No respiratory distress. Breath sounds normal. No Wheezing. No rales Abdomen: Soft and nontender. No rigidity. No distention. good BS x4 Skin: Skin warm and dry. Normal skin color. Normal skin turgor. Extremities: No lower extremity edema. Neurovascular intact to all extremities. No Lacerations. No Rash Neuro: Oriented X 3. No motor deficit. No sensory deficit. Moving all extermities. No slurred speech Medications Administered Discontinued Medications Generic Name Dose Route Start Last Admin Trade Name aCssi PRN Reason Stop Dose Admin Hydromorphone HCl 0.5 mg 08/23/24 09:52 08/23/24 09:57 Hydromorphone Hcl 0.5 Mg/0.5 Ml Syringe IVPUSH 08/23/24 09:53 Not Given ONCE ONE Protocol Ondansetron HCl 4 mg 08/23/24 09:52 08/23/24 09:59 Ondansetron Hcl 4 Mg/2 Ml Vial IVPUSH 08/23/24 09:53 Not Given ONCE ONE Ondansetron HCl 4 mg 08/23/24 09:57 08/23/24 10:17 Ondansetron Odt 4 Mg Tab.Rapdis TRANSLINGU 08/23/24 09:58 Not Given ONCE ONE Medical Decision Making Medical Decision Making [facility] [place] Narrative: Patient well-appearing no acute distress neurologically intact most likely had a pseudo-seizure patient is awake alert talking during that time she has got a shaking. Not consistent with a seizure history of being on Depakote will check levels. Electrolytes unremarkable. Neurologically intact. Will discharge home. Patient's electrolytes are unremarkable. Depakote is 60 therapeutic. History of pseudo-seizure patient was awake alert when she was having this rhythmic movement of the hand. She was answering question per the nurse's aide. Unlikely to have a seizure. Will discharge home. She has a history of pseudo- seizure Differential Diagnosis Differential Diagnoses: The differential diagnosis associated with the presentation includes Pseudo seizure, tremor, weakness Admission/Observation Consideration of admission/observation: Escalation of care including admission/observation considered Lab Data [facility] [place] Lab Attestation statement: I reviewed the patient's lab results. 08/22/24 22:26 08/22/24 22:26 Labs: Lab Results 08/22/24 08/23/24 08/23/24 Range/Units 22:26 09:42 22:26 WBC 7.7 (4.8-10.8) X10*3/uL RBC 3.94 L (4.20-5.50) X10*6/uL Hgb 12.6 (12.0-16.0) g/dl Hct 34.0 L (37.0-47.0) % MCV 86.3 (80.0-98.0) fL MCH 32.0 (27.0-33.0) pg MCHC 37.1 H (31.0-35.0) g/dl RDW 11.9 (11.0-16.0) % Plt Count 224 (160-400) X10*3/uL MPV 10.5 (9.4-12.3) fL Immature Gran % (Auto) 0.8 H (0.0-0.4) % Neut % (Auto) 56.1 (45-73) % Lymph % (Auto) 30.3 (20-40) % Starr % (Auto) 9.7 (2-11) % Eos % (Auto) 2.6 (0-4) % Baso % (Auto) 0.5 (0-2) % Lymph # (Auto) 2.3 (1.2-4.9) X10*3/uL Starr # (Auto) 0.7 (0.1-1.2) X10*3/uL Eos # (Auto) 0.2 (0.0-0.4) X10*3/uL Baso # (Auto) 0.0 (0.0-0.2) X10*3/uL Abs Immat Gran (auto) 0.06 H (0.00-0.03) X10*3/uL Absolute Neuts (auto) 4.3 (2.0-8.3) x10*3/uL Absolute Nucleated RBC 0.000 (0.0-0.012) X10*3/uL Nucleated RBC % (auto) 0.0 (0.0-0.2) /100WBC Sodium 131 L (135-145) mmol/L Potassium 4.3 (3.3-5.1) mmol/L Chloride 100 (96-108) mmol/L Carbon Dioxide 22 (22-29) mmol/L Anion Gap 13 (12-20) BUN 15 (9-16) mg/dL Creatinine 0.65 (0.5-1.4) mg/dL Estim Creat Clear Calc 88.7 Estimated GFR > 60 Random Glucose 129 H (60-115) mg/dL Calcium 8.7 (8.4-10.2) mg/dL Total Bilirubin 0.2 (0.0-1.0) mg/dL AST 27 (5-31) U/L ALT 17 (0-31) U/L Alkaline Phosphatase 117 (39-117) U/L Total Protein 6.9 (6.5-8.0) g/dL Albumin 3.9 (3.5-5.0) g/dL Valproic Acid 60.1 Cancelled (50.0-100.0) mcg/mL Independent Interpretation I performed an independent interpretation of an: EKG (Sinus heart rate is 60 ID QRS QTC within normal limits is T-wave inversion over the anterior leads noted.) Radiology Impression Discussion of test interpretation with radiology: I have reviewed the radiologist's reading. External Record Review External record reviewed: Office record Social Determinants Patient?s care significantly limited by Social Determinants of Health including: Problems related to primary support group Discharge Plan Discharge Clinical Impression: Seizure Patient Disposition: Home, Self-Care Instructions: Nonepileptic Seizures (DC) Prescriptions: No Action propranolol 120 mg capsule,extended release 24hr 120 mg PO DAILY Qty: 30 6RF topiramate 25 mg tablet 25 mg PO DAILY Qty: 90 1RF benztropine 1 mg tablet 1 mg PO BID 30 Days Qty: 60 6RF lurasidone 120 mg tablet 120 mg PO DAILY pravastatin 40 mg tablet 40 mg PO DAILY Levemir U-100 Insulin 100 unit/mL solution See Rx Instructions subcut .COMPLEX Rx Instructions: 34 units subcut daily; levothyroxine 50 mcg tablet 50 mcg PO DAILY oxcarbazepine 600 mg tablet 600 mg PO BID pantoprazole 20 mg tablet,delayed release (DR/EC) 20 mg PO DAILY budesonide-formoterol [Symbicort] 160-4.5 mcg/actuation HFA aerosol inhaler 2 puff inhalation Q12H divalproex 500 mg tablet,delayed release (DR/EC) 500 mg PO .am pravastatin 20 mg tablet 40 mg PO DAILY Incruse Ellipta 62.5 mcg/actuation blister with device 1 inh PO DAILY (DME) insulin syringe-needle U-100 [BD Insulin Syringe Ultra-Fine] 0.5 mL 31 gauge x 5/16 syringe See Rx Instructions .ROUTE .MEDSUPPLY Qty: 10 Rx Instructions: As directed (DME) FreeStyle Lite Strips Strip See Rx Instructions Not Applicable TID Qty: 10 Rx Instructions: As directed divalproex 500 mg tablet extended release 24 hr 1,000 mg PO BEDTIME albuterol sulfate 90 mcg/actuation HFA aerosol inhaler 0 mcg inhalation Certavite-Antioxidant 18-400 mg-mcg tablet 1 tab PO DAILY (DME) lancets [FreeStyle Lancets] 28 gauge misc See Rx Instructions .ROUTE TID Qty: 100 Rx Instructions: As directed Referrals: Physician,Suresh J [Primary Care Provider] - 08/26/24 Print Language: Tongan
--- NOTE | 2024-08-23 09:16 | PC.NURSE ---
Assumed care of pt at 0700. Pt resting in bed quietly, a/ox3, speaking in full sentences, speech clear and appropriate, states she is unable to remember why she is here- remembers being at [facility] last night, but no events after. Respirations even and unlabored, no increased wob/sob noted, nsr on engine monitor, HR 60s, denies abdominal pain, abd soft non-tender. Seizure pads in place for pt safety, continuous O2 monitoring pt- maintaining O2 sat >92%. This RN spoke with Pt EXECUTIVE PASTRY CHEF on phone, per EXECUTIVE PASTRY CHEF pt was endorsing dizziness/feeling as though her eyes were jumping around . States no seizure like activity. Per EXECUTIVE PASTRY CHEF, pt states the symptoms subsided after eating. Pt denies hx of seizures/pseudoseizures, states she does not take any seizure medications. Plan for labs, call hagan within reach, all needs met at this time.
[2024-08-23 10:05] LABS: Valproate 60.1 mcg/mL (50.0-100.0)
[2024-08-23 11:09] VITALS: BP 138/61; PULSE 86; RESP 18; TEMP 37.1; O2SAT 99
[2024-08-23 11:40] VITALS: BP 138/61; PULSE 86; RESP 18; TEMP 37.1; O2SAT 99
== END 2024-08-23 11:41 | disposition home or self-care (01) ==
PROVIDERS: Emergency Provider Emergency Medicine Emergency Medical Services
DX: R56.9 Unspecified convulsions (principal); R00.1 Bradycardia, unspecified; I44.0 Atrioventricular block, first degree; Z79.899 Other long term (current) drug therapy
CPT/HCPCS: 36415; 80053; 80164; 85025; 93005; 99283; 99284

== ENCOUNTER → 2024-08-22 22:17 | Outpatient (BNV) | payer MEDICARE, MEDICAID, SELFPAY | PROVIDERS: Emergency Provider Emergency Medicine Emergency Medical Services; Visit Provider Internal Medicine Cardiovascular Disease | DX: I44.0 Atrioventricular block, first degree (principal) | CPT/HCPCS: 93010 ==

== ENCOUNTER 2024-09-25 13:30 | Outpatient (RCR) | payer MEDICARE, MEDICAID, SELFPAY ==
--- NOTE | 2024-08-23 12:57 | MHC.SL.SOA ---
Referring Provider: Mariposa Casillas MD Reason for Referral: Cognitive Assessment Date of Plan of Treatment:05/29/24 Onset of Symptoms/Illness:02/21/24 Date Treatment Started:05/29/24 Medical Diagnosis:dementia Primary Speech Language Diagnosis:R41.841 Cognitive communication disorder Reason for Visit:Non-billable Event Subjective: Marlin Ponce is a 54 year old woman who was seen for a cognitive-linguistic evaluation with a Speech-Language Pathologist on 05/29/2024. She was referred for evaluation by her neurologist, Dr. Casillas, after expressing memory concerns. Notes from her physician indicate that she has been seeing her neurologist for needs associated with migraines and drug induced tremor. Medical information from her neurologist indicates Marlin has a family history (mother, daughter) and personal diagnosis of bipolar disorder. She has family history of Alzheimer's Disease including her mother, maternal aunt, and paternal aunt. Marlin was scheduled to begin weekly outpatient speech therapy appointments to target cognition starting on 08/07/2024 for a recommended 6-8 weeks. She attended her first session the following week on 08/14/2024 accompanied by her SEASONAL TAX PREPARER, Kelly. During the first session, Marlin verbally expressed interest in participating in speech therapy, however, she was frequently unengaged in conversation with her head nodding down and eyes closing. Marlin did not have a speech therapy appointment this week (08/21/24) due to the clinician being unavailable. Assessment: The majority of the first speech therapy session consisted of reviewing the evaluation report, answering questions, and discussing a plan of care including schedule and treatment goals. Marlin was not very engaged in the discussion. She had requested to skip the evaluation report review, however the clinician emphasized the importance of it to determine plan of care. Based on discussion, goals were edited. Please see plan below. Plan: Next session is scheduled for Monday08/28/24 at 2:15pm. It is recommended that Marlin continue with a trial of cognitive therapy for 5-7 additional sessions to target (1) compensatory and rehabilitative strategies in the areas of attention and memory and (2) care-partner education and training to support Marlin's attention and memory. The following treatment goals are recommended: buttermaker continuous churn goals: LTG 1: Marlin will apply strategies, applications, and accommodations to manage tasks to support cognitive-linguistic skills in the areas of attention and memory LTG 2: Marlin's care-partner(s) will be educated on strategies to support attention and memory deficits Short term goals: STG 1.1: Marlin will use a rehearsal strategy to recall a detail or specific information from visual or verbal presented information with 80% accuracy STG 1.2: Marlin will use a visualization strategy to recall a detail or specific information from verbally presented information with 80% accuracy. STG 1.3: Marlin will use an association strategy to retain and retrieve specific information from visually or verbally presented information with 80% accuracy. STG 1.4: Marlin will electively use an sherrie or tech device to record and retrieve needed information in four out of five contexts. Status of Goal: Goal Continued STG 1.5 Marlin will attend to a full 45 minute speech therapy session with intermittent cueing Status of Goal: New Goal STG 2.1 linen tech(s) will demonstrate use of strategies in 4 of 5 opportunities to support Marlin's attention during treatment sessions with minimal cueing from the clinician STG 2.2 linen tech(s) will demonstrate use of strategies in 4 of 5 opportunities to support Marlin's memory during treatment sessions with minimal cueing from the clinician Status of Goal: New Goal Graduate/Clinical Fellow: No Supervisory Statement: f_Reg Query Last Value , MHC.AU.SIGNATUR Speech Language Pathologist: Kesha Cates M.A., CCC-ANESTHESIOLOGY PHYSICIAN ASSISTANT
--- NOTE | 2024-12-20 14:08 | MHC.SL.SOA ---
Referring Provider: Mariposa Casillas MD Reason for Referral: Cognitive Assessment Date of Plan of Treatment:05/29/24 Onset of Symptoms/Illness:02/21/24 Date Treatment Started:05/29/24 Medical Diagnosis:dementia Primary Speech Language Diagnosis:R41.841 Cognitive communication disorder Secondary Speech Language Diagnosis: Reason for Visit:[id number] Individual Treatment Other: Print Discharge Note From 09/25/2024 Subjective: Marlin Ponce is a 54 year old woman who was seen for a cognitive-linguistic evaluation with a Speech-Language Pathologist on 05/29/2024. She attended 5 speech therapy sessions between August and September 2024. Marlin was referred for evaluation by her neurologist, Dr. Casillas, after expressing memory concerns. Medical information from her neurologist indicates Marlin has a family history (mother, daughter) and personal diagnosis of bipolar disorder. She has family history of Alzheimer's Disease including her mother, maternal aunt, and paternal aunt. Marlin attended today's session on 09/25 accompanied by her TAX REPRESENTATIVE Kelly. Objective: Today's session was a discussion with Marlin and her TAX REPRESENTATIVE, Kelly to discuss speech therapy progress and treatment plan moving forward. Assessment: Marlin expressed preference for printed resource of memory strategies as opposed to recalling the strategies. She expressed that she would not remember them and agreed it would be helpful to have a printed resource to put on her fridge at home. Marlin was sent home w/ an educational handout on internal and external memory strategies. Marlin reports no concern for several ADLs including grocery shopping, cooking, laundry. She reports that she may forget things when I go important places. With encouragement, she gave example that if she was asked to remember (mental or tangible) to bring to an appointment, she might forget it. Marlin was able to organize word lists by category with moderate assistance on this date. She was given the words pig, farm, water, cup and asked to put the words together into groups. She immediately stated the pig doesn't go with any of them then tried to connect pig and water before being provided some support to get to pig lives on farm. Plan: Marlin is discharged from speech therapy at this time due to difficulty participating in treatment sessions, particularly when attending individually without communication partner support. Both Marlin and Kelly were in agreement to discontinue speech therapy at this time. If further concerns arise and Marlin is able to attend consistent treatment with communication partner presence and support, Marlin may be re-referred for speech therapy intervention. longterm goals: LTG 1: Marlin will apply strategies, applications, and accommodations to manage tasks to support memory LTG 2: Marlin will apply strategies, applications, and accommodations to manage tasks to support attention LTG 2: Marlin's care-partner(s) will be educated on strategies to support attention and memory deficits STG 1.1: Marlin will recall 2-3 learned strategies to support memory in 80% of opportunities DISCHARGE GOAL Notes: Marlin requires maximum support to recall learned strategies to support memory. She reports that she does not think she will be able to remember this information and requested an educational which she was provided and encouraged to put somewhere in the home that she would see and be able to reference. STG 1.2: Marlin will recall 3 item wordlist upon immediate recall in 80% of opportunities using learned memory strategies STG 1.3: Marlin will recall 3 item wordlist upon delayed recall in 80% of opportunities using learned memory strategies STG 1.4: Marlin will appropriately use external aids (i.e. note taking, voice recording sherrie) to support memory in 80% of opportunities STG 1.5: Marlin will be able to use voice recording with minimal partner support STG 2.1: Marlin will attend to a full speech therapy session with intermittent cueing STG 3.1 partnership manager(s) will demonstrate use of strategies in 4 of 5 opportunities to support Marlin's attention during treatment sessions with minimal cueing from the clinician STG 3.2 partnership manager(s) will demonstrate use of strategies in 4 of 5 opportunities to support Marlin's memory during treatment sessions with minimal cueing from the clinician Seen by: Graduate/Clinical Fellow: No Supervisory Statement: f_Reg Query Last Value , MHC.AU.SIGNATUR Speech Language Pathologist: Kesha Cates M.A., CCC-INKER
== END 2024-12-23 15:23 | disposition home or self-care (01) ==
LOC: HO.SH 13:30
PROVIDERS: PCP Internal Medicine Cardiovascular Disease; Visit Provider Psychiatry & Neurology Neurology
DX: R41.841 Cognitive communication deficit (principal)
CPT/HCPCS: 92507

== ENCOUNTER 2024-12-17 09:37 | Emergency (ER) | payer MEDICARE, MEDICAID, SELFPAY ==
[2024-12-17 09:54] VITALS: BP 132/68; BP 138/57; PULSE 68; PULSE 70; RESP 16; TEMP 36.8; O2SAT 97; O2SAT 99; BMI 23.0
--- NOTE | 2024-12-17 10:17 | ED.GENADULT ---
HPI - General Adult General Chief complaint: General Medical Stated complaint: BLE PAIN PER EMS Time Seen by Provider: 12/17/24 10:12 Source: patient and EMS Mode of arrival: EMS Limitations: no limitations History of Present Illness ED Provider: HÉCTOR MENG PA-C HPI narrative: 54 year old female with pmhx significant for bipolar disorder, asthma, diabetes, hypothyroidism, pseudoseizures, GERD presents to the ED today via EMS for evaluation of bilateral foot pain x this morning. Reports walking to the office of her apartment complex today when she began having pain to both feet. She did not trial anything for this pain. Reports difficulty standing up from the chair due to the pain. She contacted EMS who then transported her to the ED. Reports chronic swelling to her lower extremities however this pain is new. Pain is localized to her feet only. Reports difficulty ambulating due to this pain. She typically ambulates with a cane at baseline. She states she used to wear compression stockings however she lent these to a friend and did not get them back. Denies any injury or trauma. Denies chest pain, shortness of breath, palpitations. Related Data Home Medications ?Medication ?Instructions ?Recorded ?Confirmed budesonide-formoterol HFA 160 2 puff inhalation Q12H 05/21/21 02/21/24 mcg-4.5 mcg/actuation aerosol inhaler (Symbicort) insulin detemir U-100 100 unit/mL See Rx Instructions subcut .COMPLEX 05/21/21 02/21/24 subcutaneous solution (Levemir U-100 Insulin) levothyroxine 50 mcg tablet 50 mcg PO DAILY 05/21/21 02/21/24 oxcarbazepine 600 mg tablet 600 mg PO BID 05/21/21 02/21/24 pantoprazole 20 mg tablet,delayed 20 mg PO DAILY 05/21/21 02/21/24 release blood sugar diagnostic (FreeStyle #10 ea 07/23/21 02/21/24 Lite Strips) insulin syringe-needle U-100 0.5 #10 ea 07/23/21 02/21/24 mL 31 gauge x 5/16 (BD Insulin Syringe Ultra-Fine) umeclidinium 62.5 mcg/actuation 1 inh PO DAILY 07/23/21 02/21/24 blister powder for inhalation (Incruse Ellipta) albuterol sulfate 90 mcg/actuation 0 mcg inhalation 03/03/22 02/21/24 aerosol inhaler divalproex 500 mg tablet,extended 1,000 mg PO BEDTIME 03/03/22 02/21/24 release 24 hr multivitamin-ferrous 1 tab PO DAILY 03/03/22 02/21/24 fumarate-folic acid 18 mg-400 mcg tablet (Certavite-Antioxidant) lancets 28 gauge (FreeStyle #100 ea 03/07/22 02/21/24 Lancets) divalproex 500 mg tablet,delayed 500 mg PO .am 11/17/22 02/21/24 release pravastatin 20 mg tablet 40 mg PO DAILY 02/23/23 02/21/24 lurasidone 120 mg tablet 120 mg PO DAILY 05/06/23 02/21/24 pravastatin 40 mg tablet 40 mg PO DAILY 05/06/23 02/21/24 Previous Rx's ?Medication ?Instructions ?Recorded benztropine 1 mg tablet 1 mg PO BID 30 days #60 tabs 06/21/24 propranolol 120 mg capsule,24 120 mg PO DAILY #30 caps 09/25/24 hr,extended release topiramate 25 mg tablet 25 mg PO DAILY #90 tabs 11/27/24 compression panty,small-medium #1 ea 12/17/24 diclofenac sodium 1 % topical gel 2 g topical QID PRN pain (scale 12/17/24 (Arthritis Pain (diclofenac)) score 1-3) #100 grams ibuprofen 600 mg tablet 600 mg PO Q8H PRN pain (scale 12/17/24 score 1-3) #20 tabs Allergies Allergy/AdvReac Type Severity Reaction Status Date / Time acetaminophen (From PERCOCET) Allergy Unknown UNKNOWN Verified 12/17/24 09:57 barium sulfate (BARIUM Allergy Unknown UNKNOWN Verified 12/17/24 09:57 SULFATE) bupropion (From WELLBUTRIN) Allergy Unknown UNK Verified 12/17/24 09:57 cefaclor (From CECLOR) Allergy Unknown UNKNOWN Verified 12/17/24 09:57 erythromycin base Allergy Unknown UNKNOWN Verified 08/22/24 21:58 (ERYTHROMYCIN BASE) fluoxetine (From PROZAC) Allergy Unknown UNKNOWN Verified 12/17/24 09:57 gabapentin (GABAPENTIN) Allergy Unknown UNKNOWN Verified 12/17/24 09:57 Iodinated Contrast Media (IV Allergy Unknown UNKNOWN Verified 12/17/24 09:57 CONTRAST) loratadine (LORATADINE) Allergy Unknown UNKNOWN Verified 12/17/24 09:57 metformin (METFORMIN) Allergy Unknown UNKNOWN Verified 12/17/24 09:57 oxycodone (From PERCOCET) Allergy Unknown UNKNOWN Verified 12/17/24 09:57 paroxetine (From PAXIL) Allergy Unknown UNKNOWN Verified 12/17/24 09:57 penicillin G Allergy Unknown unknown Verified 12/17/24 09:57 Penicillins (PENICILLINS) Allergy Unknown UNKNOWN Verified 12/17/24 09:57 quetiapine (From SEROQUEL) Allergy Unknown UNKNOWN Verified 12/17/24 09:57 risperidone (From RISPERDAL) Allergy Unknown UNKNOWN Verified 12/17/24 09:57 soy (SOY) Allergy Unknown UNKNOWN Verified 12/17/24 09:57 venlafaxine (From EFFEXOR) Allergy Unknown UNKNOWN Verified 12/17/24 09:57 BuPROPion HCl Allergy Unknown unknown Uncoded 12/17/24 09:57 Fluoxetine Allergy Unknown unknown Uncoded 12/17/24 09:57 iodinated contrast media, Allergy Unknown unknown Uncoded 12/17/24 09:57 oral Review of Systems Review of Systems: Yes all other systems are reviewed and are negative [facility] Past Medical History Attestation statement: The following information was validated with the patient. Source: old records reviewed and nursing notes reviewed Medical History Confusion Cognitive disorder Pseudoseizures Migraine Nephi toxicity Drug-induced tremor Benign essential tremor Diabetes Asthma Bipolar disorder Surgical History Hx of cholecystectomy Family History Family History Father Diabetes mellitus Heart disease Stroke Hyperlipidemia Mother Diabetes mellitus Alzheimer disease Bipolar 1 disorder Daughter Bipolar 1 disorder Maternal Aunt Alzheimer disease Paternal Aunt Alzheimer disease Social History Social History Alcohol intake: current Alcohol intake frequency: does not drink Patient Tobacco Use Status: Never used Tobacco Advance Directives: Yes Advance Directives Information Provided: Yes Advance Directives on File: No Do you have a plan to hurt others: No Plan Physical Exam ED Vital Signs: Vital Signs - 24 hr 12/17/24 09:54 12/17/24 11:12 Temperature 98.3 F 97.1 F Pulse Rate 70 65 Respiratory Rate 16 16 Blood Pressure 138/57 L 122/58 L Pulse Oximetry 99 98 Oxygen Delivery Method Room Air Room Air BMI result Body Mass Index 23.0 Not hypoxic, not tachycardic, afebrile General: Well appearing, in no acute distress. Skin: Warm, dry, intact. No rashes or lesions. Head: Normocephalic, atraumatic. EENT: Hearing is intact b/l. Conjunctiva clear. PERRLA. EOM intact. Moist mucous membranes.? Cardiac: Chest wall symmetric. RRR Lungs: Normal respiratory effort without accessory muscle use. CTA bilaterally. Ext: +1+ pitting edema noted to bilateral lower extremities extending from toes to mid [place]. No overlying skin changes/erythema. No calf tenderness bilaterally. Compartments soft, compressible. Full ROM intact to toes and ankles. 2+ DP pulse intact bilaterally. Extremities warm. Cap refill less than 2 seconds. Neuro: AOx3. Normal speech. Course Course Course Narrative: CBC without leukocytosis or left shift. Normocytic anemia, H and H stable and above transfusion threshold. Chemistry without acute electrolyte abnormality requiring intervention. No ALEXA. Liver function WNL. BNP WNL, CHF unlikely. > likely dependent edema. No imaging warranted at this time. I have extremely low suspicion for DVT. patient able to stand and ambulate in ED. Advised compression stockings. Will send Motrin and diclofenac cream for pain control. Patient has remained stable throughout ED visit today. Discussed worrisome signs and symptoms and when to return to the ED. All questions answered at this time. Patient is agreeable with disposition and stable for discharge. Medications Administered Discontinued Medications Generic Name Dose Route Start Last Admin Trade Name Freq PRN Reason Stop Dose Admin Ibuprofen 600 mg 12/17/24 10:31 12/17/24 11:19 Ibuprofen 600 Mg Tablet PO 12/17/24 10:32 600 mg ONCE ONE Administration Medical Decision Making Medical Decision Making [facility] Narrative: 54 year old female with pmhx significant for bipolar disorder, asthma, diabetes, hypothyroidism, pseudoseizures, GERD presents to the ED today via EMS for evaluation of bilateral foot pain x this morning. Vitals stable. Not tachycardic or hypoxic. Afebrile. She is well-appearing and in no acute distress. On exam, 1+pitting edema noted to bilateral lower extremities extending from toes to mid [place]. No overlying skin changes/erythema. No calf tenderness bilaterally. Compartments soft, compressible. Full ROM intact to toes and ankles. 2+ DP pulse intact bilaterally. Extremities warm. Cap refill less than 2 seconds. Differential diagnosis includes dependent edema. Less likely DVT, popliteal cyst, CHF, lymphedema. Unlikely arterial occlusion, neurovascular compromise, threat to limb, compartment syndrome. Presentation not consistent with fracture, gout, pseudogout. Plan for basic labs, pain control and re-evaluation. Differential Diagnosis Differential Diagnoses: The differential diagnosis associated with the presentation includes as above. Admission/Observation Not indicated Lab Data MDM Lab Attestation statement: I reviewed the patient's lab results. As above 12/17/24 10:53 12/17/24 10:53 Labs: Lab Results 12/17/24 Range/Units 10:53 WBC 5.6 (4.8-10.8) X10*3/uL RBC 3.62 L (4.20-5.50) X10*6/uL Hgb 11.4 L (12.0-16.0) g/dl Hct 33.0 L (37.0-47.0) % MCV 91.2 (80.0-98.0) fL MCH 31.5 (27.0-33.0) pg MCHC 34.5 (31.0-35.0) g/dl RDW 11.8 (11.0-16.0) % Plt Count 205 (160-400) X10*3/uL MPV 9.5 (9.4-12.3) fL Immature Gran % (Auto) 0.4 (0.0-0.4) % Neut % (Auto) 64.4 (45-73) % Lymph % (Auto) 23.0 (20-40) % Leon % (Auto) 10.4 (2-11) % Eos % (Auto) 1.4 (0-4) % Baso % (Auto) 0.4 (0-2) % Lymph # (Auto) 1.3 (1.2-4.9) X10*3/uL Leon # (Auto) 0.6 (0.1-1.2) X10*3/uL Eos # (Auto) 0.1 (0.0-0.4) X10*3/uL Baso # (Auto) 0.0 (0.0-0.2) X10*3/uL Abs Immat Gran (auto) 0.02 (0.00-0.03) X10*3/uL Absolute Neuts (auto) 3.6 (2.0-8.3) x10*3/uL Absolute Nucleated RBC 0.000 (0.0-0.012) X10*3/uL Nucleated RBC % (auto) 0.0 (0.0-0.2) /100WBC Sodium 138 (135-145) mmol/L Potassium 4.1 (3.3-5.1) mmol/L Chloride 108 (96-108) mmol/L Carbon Dioxide 26 (22-29) mmol/L Anion Gap 8 L (12-20) BUN 10 (9-16) mg/dL Creatinine 0.64 (0.5-1.4) mg/dL Estim Creat Clear Calc 81.2 Estimated GFR > 60 Random Glucose 121 H (60-115) mg/dL Calcium 8.5 (8.4-10.2) mg/dL Magnesium 1.6 (1.6-2.6) mg/dL Total Bilirubin 0.4 (0.0-1.0) mg/dL AST 22 (5-31) U/L ALT 15 (0-31) U/L Alkaline Phosphatase 104 (39-117) U/L B-Natriuretic Peptide 53 (<100) pg/mL Total Protein 6.4 L (6.5-8.0) g/dL Albumin 3.8 (3.5-5.0) g/dL Independent Historian Clinical information obtained from an independent historian. History obtained from or confirmed by: EMS External Record Review External record reviewed: Inpatient record Prescription Management I considered prescription management with: Pain Medication Chronic Conditions Patient?s care impacted by: Other (LE edema) Social Determinants Patient?s care significantly limited by Social Determinants of Health including: Other Social Determinant of Health Critical Care Time Critical Care Time Critical Care Time: No Discharge Plan Discharge Clinical Impression: Dependent edema Patient Disposition: Home, Self-Care Instructions: Leg Edema (ED) Additional Instructions: Your work up today is reassuring. I recommend wearing compression stockings and elevating your legs whenever possible. I recommend a diet low in sodium (less than 2 grams per day). Monitor your weight daily. You may take motrin at home for pain. I have also sent a cream that you may apply to your ankles/feet to help with pain. Follow up with your PCP this week. Return to the ED with new or worsening symptoms. In the case of an emergency call 911. Prescriptions: New (DME) compression panty,small-medium Misc See Rx Instructions .Route Qty: 1 0RF Rx Instructions: As directed ibuprofen 600 mg tablet 600 mg PO Q8H PRN (Reason: pain (scale score 1-3)) Qty: 20 0RF diclofenac sodium [Arthritis Pain (diclofenac)] 1 % gel 2 g topical QID PRN (Reason: pain (scale score 1-3)) Qty: 100 0RF Rx Instructions: apply to ankle/foot No Action benztropine 1 mg tablet 1 mg PO BID 30 Days Qty: 60 6RF propranolol 120 mg capsule,extended release 24hr 120 mg PO DAILY Qty: 30 6RF topiramate 25 mg tablet 25 mg PO DAILY Qty: 90 1RF lurasidone 120 mg tablet 120 mg PO DAILY pravastatin 40 mg tablet 40 mg PO DAILY Levemir U-100 Insulin 100 unit/mL solution See Rx Instructions subcut .COMPLEX Rx Instructions: 34 units subcut daily; levothyroxine 50 mcg tablet 50 mcg PO DAILY oxcarbazepine 600 mg tablet 600 mg PO BID pantoprazole 20 mg tablet,delayed release (DR/EC) 20 mg PO DAILY budesonide-formoterol [Symbicort] 160-4.5 mcg/actuation HFA aerosol inhaler 2 puff inhalation Q12H divalproex 500 mg tablet,delayed release (DR/EC) 500 mg PO .am pravastatin 20 mg tablet 40 mg PO DAILY Incruse Ellipta 62.5 mcg/actuation blister with device 1 inh PO DAILY (DME) insulin syringe-needle U-100 [BD Insulin Syringe Ultra-Fine] 0.5 mL 31 gauge x 5/16 syringe See Rx Instructions .ROUTE .MEDSUPPLY Qty: 10 Rx Instructions: As directed (DME) FreeStyle Lite Strips Strip See Rx Instructions Not Applicable TID Qty: 10 Rx Instructions: As directed divalproex 500 mg tablet extended release 24 hr 1,000 mg PO BEDTIME albuterol sulfate 90 mcg/actuation HFA aerosol inhaler 0 mcg inhalation Certavite-Antioxidant 18-400 mg-mcg tablet 1 tab PO DAILY (DME) lancets [FreeStyle Lancets] 28 gauge misc See Rx Instructions .ROUTE TID Qty: 100 Rx Instructions: As directed Referrals: Physician,Unknown J [Primary Care Provider, Medical] Print Language: Irish
[2024-12-17 11:02] LABS: MANUAL DIFF FLAG NO
[2024-12-17 11:03] LABS: Hematocrit 33.0 % (37.0-47.0); Hemoglobin 11.4 g/dl (12.0-16.0); Imm Gran Abs Auto 0.02 X10*3/uL (0.00-0.03); Imm Gran Pct Auto 0.4 % (0.0-0.4); Lymphocytes Absolute Auto 1.3 X10*3/uL (1.2-4.9); Mean Corpuscular HGB Conc 34.5 g/dl (31.0-35.0); Mean Corpuscular Hemoglobin 31.5 pg (27.0-33.0); Mean Corpuscular Volume 91.2 fL (80.0-98.0); NRBC Abs Auto 0.000 X10*3/uL (0.0-0.012); NRBC Pct Auto 0.0 /100WBC (0.0-0.2); Platelet Count 205 X10*3/uL (160-400); Red Blood Count 3.62 X10*6/uL (4.20-5.50); White Blood Count 5.6 X10*3/uL (4.8-10.8)
[2024-12-17 11:12] VITALS: BP 122/58; PULSE 65; RESP 16; TEMP 36.2; O2SAT 98
[2024-12-17 11:22] LABS: Alanine Aminotransferase 15 U/L (0-31); Albumin Level 3.8 g/dL (3.5-5.0); Alkaline Phosphatase 104 U/L (39-117); Anion Gap 8 (12-20); Aspartate Amino Transferase 22 U/L (5-31); Blood Urea Nitrogen 10 mg/dL (9-16); Calcium 8.5 mg/dL (8.4-10.2); Carbon Dioxide 26 mmol/L (22-29); Chloride 108 mmol/L (96-108); Creatinine Clr Calc Pharmacy 81.2; Estimated Glomerular Filt Rate > 60; Magnesium 1.6 mg/dL (1.6-2.6); Potassium 4.1 mmol/L (3.3-5.1); Sodium 138 mmol/L (135-145); Total Protein 6.4 g/dL (6.5-8.0)
[2024-12-17 11:28] LABS: B Type Natriuretic Peptide 53 pg/mL (<100)
--- OUTSIDE RECORDS SUMMARY | 2024-12-17 11:28 | XMS_ITS | Encounter Summary ---
Author Organization [employer] Address [address] [place] [address] Care Team Providers Care Hearing Aid Assistant Name Role Phone Unavailable Primary Care Provider Unavailabl e Encounter Details Date Type Department Care Team (Latest Contact Info) Description 05/13/2021 Abstract [facility] CONVERSIONS Dental, Provider, DDS Social History Tobacco Use Types Packs/Day Years Used Date Smoking Tobacco: Never Assessed Comments Unknown Sex and Gender Information Value Date Recorded Sex Assigned at Female 03/14/2022 10:24 AM EDT Legal Sex Female 10:24 AM EDT Gender Identity Female 07/17/2023 2:07 PM EST Sexual Orientation Choose not to disclose 2021 10:24 AM EDT documented as of this encounter Plan of Treatment Not on file documented as of this encounter Visit Diagnoses Not on filedocumented in this encounter
[2024-12-17 12:34] VITALS: BP 122/58; PULSE 65; RESP 16; TEMP 36.2; O2SAT 98
== END 2024-12-17 12:35 | disposition home or self-care (01) ==
PROVIDERS: Physician Assistant Medical; Emergency Provider Emergency Medicine
DX: R60.9 Edema, unspecified (principal); M79.672 Pain in left foot; M79.671 Pain in right foot; F31.9 Bipolar disorder, unspecified; J45.909 Unspecified asthma, uncomplicated; E03.9 Hypothyroidism, unspecified; K21.9 Gastro-esophageal reflux disease without esophagitis
CPT/HCPCS: 36415; 80053; 83735; 83880; 85025; 99283; 99284

== ENCOUNTER 2025-01-29 15:11 | Outpatient (AMB) | payer MEDICARE, MEDICAID, SELFPAY ==
--- NOTE | 2025-01-29 15:18 | MHC.OFFVIS ---
Vital Signs 01/29/25 15:19 Height 5 ft 3 in Weight 154 lb 4 oz BMI 27.3 BP 122/72 Blood Pressure Location Rt brachial Position Sitting Pulse 90 Pulse Source Pulse Oximeter Pulse Oximetry (%) 96 Oxygen Delivery Method Room Air Intake Visit Reasons: follow up Intake Note: Follow up Migraine, Sleep disorder and drug induced tremor Research Professor Required: No Accompanied by: Margie - T[employer] NETWORK ANALYST Allergies acetaminophen (From PERCOCET) Allergy (Unknown, Verified 01/29/25 15:19) UNKNOWN barium sulfate (BARIUM SULFATE) Allergy (Unknown, Verified 01/29/25 15:19) UNKNOWN bupropion (From WELLBUTRIN) Allergy (Unknown, Verified 01/29/25 15:19) UNK cefaclor (From CECLOR) Allergy (Unknown, Verified 01/29/25 15:19) UNKNOWN erythromycin base (ERYTHROMYCIN BASE) Allergy (Unknown, Verified 01/29/25 15:19) UNKNOWN fluoxetine (From PROZAC) Allergy (Unknown, Verified 01/29/25 15:19) UNKNOWN gabapentin (GABAPENTIN) Allergy (Unknown, Verified 01/29/25 15:19) UNKNOWN Iodinated Contrast Media (IV CONTRAST) Allergy (Unknown, Verified 01/29/25 15:19) UNKNOWN loratadine (LORATADINE) Allergy (Unknown, Verified 01/29/25 15:19) UNKNOWN metformin (METFORMIN) Allergy (Unknown, Verified 01/29/25 15:19) UNKNOWN oxycodone (From PERCOCET) Allergy (Unknown, Verified 01/29/25 15:19) UNKNOWN paroxetine (From PAXIL) Allergy (Unknown, Verified 01/29/25 15:19) UNKNOWN penicillin G Allergy (Unknown, Verified 01/29/25 15:19) unknown Penicillins (PENICILLINS) Allergy (Unknown, Verified 01/29/25 15:19) UNKNOWN quetiapine (From SEROQUEL) Allergy (Unknown, Verified 01/29/25 15:19) UNKNOWN risperidone (From RISPERDAL) Allergy (Unknown, Verified 01/29/25 15:19) UNKNOWN soy (SOY) Allergy (Unknown, Verified 01/29/25 15:19) UNKNOWN venlafaxine (From EFFEXOR) Allergy (Unknown, Verified 01/29/25 15:19) UNKNOWN BuPROPion HCl Allergy (Unknown, Uncoded 12/17/24 09:57) unknown Fluoxetine Allergy (Unknown, Uncoded 12/17/24 09:57) unknown iodinated contrast media, oral Allergy (Unknown, Uncoded 12/17/24 09:57) unknown Medication List - Last Reconciled 01/29/25 by Mariposa Casillas MD albuterol sulfate 90 mcg/actuation 0 mcg inhalation alcohol swabs pad topical TID benztropine 1 mg PO BID 30 days blood sugar diagnostic (FreeStyle Lite Strips) As directed budesonide-formoterol 160-4.5 mcg/actuation (Symbicort) 2 puffs inhalation Q12H cetirizine 10 mg PO DAILY PRN compression panty,small-medium As directed diclofenac sodium 1% (Arthritis Pain (diclofenac)) 2 grams topical QID PRN divalproex 500 mg PO .am divalproex ER 1,000 mg PO BEDTIME insulin detemir U-100 (Levemir U-100 Insulin) 34 units subcut daily; insulin syringe-needle U-100 (BD Insulin Syringe Ultra-Fine) As directed lancets (FreeStyle Lancets) As directed levothyroxine 50 mcg PO DAILY lurasidone 120 mg PO DAILY nhbcobpopzrf-wyip-pllya acid 18-400 mg-mcg (Certavite-Antioxidant) 1 tab PO DAILY oxcarbazepine 600 mg PO BID pantoprazole 20 mg PO DAILY pen needle, diabetic As directed pravastatin 40 mg PO DAILY propranolol ER 120 mg PO DAILY topiramate 25 mg PO DAILY umeclidinium 62.5 mcg/actuation (Incruse Ellipta) 1 inh PO DAILY HPI Comments Details: 54 y/o female comes for follow up of drug induced tremors and migraines.Her migraines are stable but her tremors are noticeable . she is able to do most of her ADLs.Mood is stable she had 2 ER visits this year- August for increased tremors and December for leg swelling . she has some short term memory issues. The cognition fluctuates. she is compensating by writing things down. She is accompanied by her TARGET NETWORK ANALYST who helps her history. She has visiting nurse service, once day. Pt's medication box is locked. RN gives her medications. Pt's TARGET NETWORK ANALYST usually helps meals, cleaning, grocery shopping and daily activities. Pt states that she did not have any headache. Pt is on topiramate 25 mg, She is on cogentin 1mg bid and propranolol ER 120 mg daily, depakote. She can be unbalanced but no falls. She sleeps well and eating well. She is not physically active but goes to [facility] twice a week. [facility] Medical History Confusion Cognitive disorder Pseudoseizures Migraine [place] toxicity Drug-induced tremor Benign essential tremor Diabetes Asthma Bipolar disorder Surgical History Hx of cholecystectomy Family History Father Diabetes mellitus Heart disease Stroke Hyperlipidemia Mother Diabetes mellitus Alzheimer disease Bipolar 1 disorder Daughter Bipolar 1 disorder Maternal Aunt Alzheimer disease Paternal Aunt Alzheimer disease Social History Alcohol intake: current Alcohol intake frequency: does not drink Patient Tobacco Use Status: Never used Tobacco Review of Systems Neuro Reports Abnormal speech present (mild hypophonia) Physical Exam Vital Signs: Last Vital Signs Pulse 90 01/29/25 15:19 BP 122/72 01/29/25 15:19 Pulse Ox 96 01/29/25 15:19 Oxygen Delivery Method Room Air 01/29/25 15:19 BMI result Body Mass Index 27.3 Const Orientation/consciousness: patient oriented x3 Eyes Pupils: Equal, round and reactive pupils present Neuro Other: very mild farshad postural and action tremors in UE no head tremors General: patient oriented x3 and moves all extremities Cranial nerves: Yes Equal, round and reactive pupils present, Yes Normal facial strength present, Yes Midline tongue present and Yes Other cranial nerve findings present Cognition (Neuro): normal cognition (anxious -) Speech: Abnormal speech present (mild hypophonia) Gait exam (Neuro): Other gait observations present (mild slowness, no arm swings bilaterally) Motor exam (neuro): 5/5 motor strength present throughout and Other motor observations present (mild bradykinesia , no evidence of tardive dyskinesia ) Assessment & Plan Assessment & Plan (1) Migraine: Code(s): G43.909 - Migraine, unspecified, not intractable, without status migrainosus (2) Sleep disorder: Code(s): G47.9 - Sleep disorder, unspecified (3) Drug-induced tremor: Code(s): G25.1 - Drug-induced tremor Category: Medical (4) Cognitive disorder: Code(s): F09 - Unspecified mental disorder due to known physiological condition Category: Medical Plan Continue to take propranalol LA 120mg qd with cogentin 1 mg BID. Continue topiramate 25 mg qd for migraine prevention. Monitor the migraine frequency and intensity. Coding Level of Care Code Est Pt Level 4 (32894) Complex EM visit Add On G2211 Diagnoses Migraine G43.909 Sleep disorder G47.9 Drug-induced tremor G25.1 Cognitive disorder F09
[2025-01-29 15:19] VITALS: BP 122/72; PULSE 90; O2SAT 96; BMI 27.3
--- OUTSIDE RECORDS SUMMARY | 2025-01-29 18:43 | XMS_ITS | Clinical Summary ---
Author Organization [facility] Address [address] [facility] [address] [place] [phone] Phone Care Team Providers Care Sales And Marketing Associate Name Role Phone Lucia Leon MD Unavailable [phone] Florencia Escalante NP Primary Care Provider [phone] Allergies Active Allergy Reactions Criticality Noted Date Comments Barium Sulfate Other (See Comments) Bupropion Hcl Other (See Comments) Cefaclor Other (See Comments) Codeine Itching Codeine Sulfate Itching 03/14/2017 Fluoxetine Other (See Comments) Gabapentin Hives Lactose Unknown 03/14/2017 [place] Metformin Anaphylaxis,Other (See Comments) High 03/14/2017 Esomeprazole Magnesium 03/14/2017 Increased blood sugars Oxycodone Itching 03/14/2017 Oxycodone-Acetaminophe n Anaphylaxis High Paroxetine Hcl Other (See Comments) Penicillins Other (See Comments) Quetiapine Other (See Comments) Soy Other (See Comments) Venlafaxine Other (See Comments) Zafirlukast Other reaction(s): Confusion Medications alcohol (ALCOHOL PREP PADS) PadM as directed 02/05/20 16 Active insulin syringe-needle U-100 (BD INSULIN SYRINGE ULTRA-FINE) 1 mL 31 gauge x 5/16 Syrg as directed 04/15/20 16 Active pen needle, diabetic 31 gauge x 1/6 Ndle as directed 02/18/20 16 Active clonazePAM (KLONOPIN) 0.5 MG tablet 1 tablet Active cholecalciferol , vitamin D3, 400 unit capsule TAKE ONE CAPSULE BY MOUTH EVERY DAY Active divalproex (DEPAKOTE ER) 500 MG ER 24 hr tablet 2 tab(s) Active ferrous sulfate 325 mg (65 mg elemental) tablet 1 tablet Active fluticasone propionate (FLONASE) 50 mcg/actuation nasal spray 1 spray in each nostril 08/07/19 14 Active lancets (FREESTYLE) 28 gauge Misc as directed Active blood-glucose meter (FREESTYLE LITE METER) kit as directed 09/22/19 17 Active blood sugar diagnostic (FREESTYLE LITE STRIPS) Strp strips - Active lancets 30 gauge Misc as directed 03/04/20 13 Active lancing device (ADJUSTABLE LANCING DEVICE) Misc as directed 09/21/19 17 Active levothyroxine (SYNTHROID, LEVOTHROID) 50 MCG tablet TAKE 1 TABLET BY MOUTH EVERY MORNING ON AN EMPTY STOMACH Activ e lisinopril (PRINIVIL,ZESTR IL) 2.5 MG tablet 1 tablet Active pen needle, diabetic, safety (NOVOFINE AUTOCOVER) 30 gauge x 1/3 Ndle as directed 02/20/20 13 Active albuterol (PROAIR HFA) 90 mcg/actuation inhaler 2 puffs as needed 01/24/20 12 Active nebulizer accessories Misc as directed 06/21/19 17 Active budesonide-form oterol (SYMBICORT) 160-4.5 mcg/actuation inhaler INHALE 2 PUFFS BY MOUTH TWICE A DAY Active OXcarbazepine (TRILEPTAL) 150 MG tablet Active acetaminophen (TYLENOL) 325 mg tablet 2 tablets as needed 02/22/20 16 Active cholecalciferol (VIT D3) 400 unit/mL oral drops 1 capsule Active LANOLIN/MINERAL OIL/PEG (ALPHA IRINA SHOWER-BATH TOP) as directed 02/22/20 16 Active pravastatin (PRAVACHOL) 20 MG tabletIndicatio ns:Hyperlipidem ia Take 1 tablet (20 mg total) by mouth daily. 90 tablet 3 04/21/20 17 Active LANTUS U-100 INSULIN 100 unit/mL injection vial INJECT 35 TO 45 UNITS SUBCUTANEAOUSLY DAILY DIRECTED 20 mL 11 05/21/19 19 Active insulin syringe-needle U-100 (BD INSULIN SYRINGE ULTRA-FINE) 0.5 mL 31 gauge x 5/16 SyrgIndications :Type 2 diabetes mellitus without complication, with long-term current use of insulin USE TO INJECT INSULIN SUBCUTANEOUSLY THREE TIMES A DAY BEFORE MEALS.DX:E11.9 90 each 09/26/19 20 Active Active Problems Problem Noted Date Diagnosed Date Hypertension 05/05/2017 Assessment & Plan (05/04/2018 2:44 PM EST): Blood pressure is in good range on current regimen which includes ACEi Assessment & Plan (05/05/2017 5:12 PM EST): Blood pressure is under good control on current ACEI therapy Sore throat 03/28/2017 Assessment & Plan (03/28/2017 3:25 PM EST): Marlin presents for a sore throat for a week but this is getting better. She had a negative rapid strep test today in the office. She will have a culture sent as well. She was advised of symptomatic treatment at home. She will call if this does not improve. She understands and agrees. Allergic rhinitis 03/14/2017 Anxiety disorder 03/14/2017 Asthma 03/14/2017 Bipolar disorder 03/14/2017 Overview (03/14/2017): she does not see a therapist no lithium with lisinopril as she got toxicity bid home nursing to manage meds She liked her psych right now and says that they are dong labs Assessment & Plan (03/14/2017 11:24 AM EDT): Cont with psych and current meds. She says that she has had labs recently with psych. Chronic fatigue 03/14/2017 Fibromyalgia 03/14/2017 GERD (gastroesophageal reflux disease) 7 Hiatal hernia 03/14/2017 Hyperlipidemia 03/14/2017 Assessment & Plan (05/04/2018 2:46 PM EST): No recent lipid panel on file, most recent LDL above goal Unable to review meds today, no list available and Griselda does not remember, cannot confirm statin therapy Assessment & Plan (05/05/2017 5:14 PM EST): Most recent lipid panel suggests poor control, LDL 166 On low dose statin therapy which may need adjustment to goal LDL <100 Hypothyroidism 03/14/2017 Overview (03/14/2017): Has been stable on meds for many years Assessment & Plan (05/04/2018 2:47 PM EST): Most recent TSH in desired range on current dose of L-thyroxine Assessment & Plan (03/14/2017 11:25 AM EDT): Labs due, cont levothyroxine Memory loss 03/14/2017 Migraine 03/14/2017 Routine general medical exam ination at a health care facility 03/14/2017 Assessment & Plan (03/14/2017 1:43 PM EDT): Mammogram and colonsocopy age 48. Pap UTD. Declines flu shot. Stomach pain 03/14/2017 Tremor 03/14/2017 Type 2 diabetes mellitus without complications 1 Overview (11/02/2017): she has been on metformin and claims that she had anaphylaxis DIABETES HISTORY Diagnosis - type 2 diabetes, dx 2006 (before that probably) Treatment history - initially on Metformin, developed intolerance; then DUGAN which worked for a while; started insulin when DUGAN stopped working Assessment & Plan (05/04/2018 2:50 PM EST): We discussed blood glucose data from past two weeks, there is some discrepancy in readings which is likely meal/snack related, readings from past week are largely in desired range Has been back on Lantus once daily for some period of time, Griselda does not remember when she started this back, currently 9u daily Will continue current dose of Lantus, advised to call if notes more consistent blood sugars out of range Encouraged to try to eat healthy, balanced diet and to stay as active as is possible Assessment & Plan (11/02/2017 3:01 PM EDT): No blood sugar data to review today Reports low blood sugars in the morning so would likely benefit from lower dose of Lantus at least while her appetite and food intake are less consistent than usual, these are reported in the patient instructions for her to share with [facility] Advised to call with any questions or concerns Assessment & Plan (05/05/2017 5:23 PM EST): Difficult visit today due to Marlin's mental health state, she was very sensitive to ambient light and sound making it difficult to interact with her Blood sugar control is excellent on current dose of basal insulin Recent occasional low normal FPG is likely due to changes to evening snack or decreased access to evening snack foods Discussed adjustment of insulin if FPG is consistently in low normal range and/or if evening snack is anticipated to be unavailable Advised that her visiting nurse can fax blood sugar logs to us, we will review these and contact her/nurse as needed for adjustments, Marlin is under the impression that we don't review faxed logs and only rely on A1c, I clarified for her our policy of using all available data to make treatment decisions, we do not make dosing adjustments based on A1c alone Encouraged to call with any questions or concerns Assessment & Plan (03/14/2017 1:43 PM EDT): She will cont to follow with stacey foote with A1c Vitamin D deficiency 03/14/2017 Vomiting 03/14/2017 Resolved Problems Problem Noted Date Diagnosed Date Resolved Date Type 2 diabetes mellitus with hyperglycemia 03/14/2017 03/14/2017 Immunizations Immunization Administration Dates Next Due INFLUENZA, SPLIT VIRUS, TRIVALENT W/ PRESERVATIV E IM 02/08/2011 Influenza Quadrivalent Preservative Free IM 02/12,02/19/2009 Meningococcal MCV4P 02/29/2012 Pneumococcal polysaccharide PPSV23 03/20/2007 Tdap 11/06/2013 Family History Medical History Relation Comments Diabetes mellitus Father 2 Diabetes mellitus Maternal Grandfather 2 Diabetes mellitus Mother 2 Diabetes mellitus Paternal Aunt 2 Relation Status Comments Father 1 Father 2 Maternal Grandfather 1 Maternal Grandfather 2 Mother 1 Mother 2 Paternal Aunt 1 Paternal Aunt 2 Social History Tobacco Use Types Packs/Day Years Used Date Smoking Tobacco: Never Smokeless Tobacco: Never Alcohol Use Standard Drinks/Week Comments No 0 (1 standard drink = 0.6 oz pur e alcohol) Education Answer Date Recorded Are you interested in more education? Not on manuel e 09/09/2022 Are you concerned about learning? Not on file 09/09/2022 No 09/09/2022 No 09/09/2022 Digital Access Answer Date Recorded No 10/10/2022 No 10/10/2022 Reliable internet access at home? Not on file 10/10/2022 Device with a working camera? Not on file Comments Unknown Sex and Gender Information Value Date Recorded Sex Assigned at Not on file Legal Sex Female 1:39 PM EDT Gender Identity Not on file Sexual Orientation Not on file Last Filed Vital Signs Vital Sign Reading Time Taken Comments Blood Pressure 130/80 05/04/2018 1:36 PM EST Pulse 94 05/04/2018 1:36 PM EST Temperature - - Respiratory Rate - - Oxygen Saturation 98% 03/28/2017 3:15 PM EST Inhaled Oxygen Concentration - - Weight 63.5 kg (140 lb) 05/04/2018 1:36 PM EST Height 159.4 cm (5' 2.75 ) 05/04/2018 1:36 PM ES T Body Mass Index 25 05/04/2018 1:36 PM EST Plan of Treatment Health Maintenance Due Date Last Done Comments BLOOD PRESSURE 1968 VALPROIC ACID (DEPAKENE) LEVEL 1968 DEPRESSION SCREENING 1980 HEPATITIS C SCREENING 1986 HIV ONE-TIME SCREENING (18-6 5 YEARS) 1986 PNEUMOCOCCAL VACCINES (50+ years) (2 of 2 - PCV) 03/20/2008 03/20/2007 MAMMOGRAM 2008 COLOGUARD 2013 COLONOSCOPY 2013 COLORECTAL CANCER SCREENING 2013 FIT TEST 2013 FOBT 2013 SIGMOIDOSCOPY 2013 VIRTUAL COLONOSCOPY 2013 PAP SMEAR 11/06/2016 11/06/2013 DIABETIC EYE EXAM 03/14/2017 CREATININE LEVEL 03/14/2018 03/14/2017 LIPID PANEL 03/14/2018 03/14/2017, 06/16/2016 POTASSIUM LEVEL 03/14/2018 03/14/2017 ZOSTER VACCINES (1 of 2) 2018 TSH LEVEL 10/13/2018 10/13/2017, 03/14/2017 HEMOGLOBIN A1C 11/02/2018 05/04/2018, 10/13/2017, 05/05/2017 Adult Td,Tdap Booster 11/07/2023 11/06/2013 INFLUENZA VACCINE (#1) 2024 2, 02/08/2011, 02/19/2009 COVID-19 VACCINE (2 2024-2 6 season) 2025 07/29/2020 MENINGOCOCCAL VACCINES (ACWY) Aged Out 02/29/2012 No longer eligible based on patient's age to complete this topic SMOKING STATUS SCREENING (On ce After 26 Yrs) Completed 03/28/2017 HEPATITIS A VACCINES Aged Out No long er eligible based on patient's age to complete this topic HIB VACCINES Aged Out No longer eligi ble based on patient's age to complete this topic MENINGOCOCCAL VACCINES (B) Aged Out N o longer eligible based on patient's age to complete this topic Medical Devices Not on file Procedures Procedure Name Priority Date/Time Associated Diagnosis Comments POCT HEMOGLOBIN A1C Routine 05/04/2018 2:01 PM EST Type 2 diabetes mellitus without complication, with long-term current use of insulin OUTSIDE TSH LEVEL Routine 10/13/2017 LIPID PANEL Routine 03/14/2017 11:28 AM EDT Pure hypercholesterolemia BASIC METABOLIC PANEL Routine 03/14/2017 11:28 AM EDT Benign essential hypertension from Last 3 Months or Most Recently Relevant to Health Maintenance Results * (ABNORMAL) POCT Hemoglobin A1c (05/04/2018 2:01 PM EST) Hemoglobin A1c 6.3(A) 4.2 - 5.8 % [facility] Other 05/04/2018 2:01 PM EST us Lucia Leon MD POINT OF CARE TEST ORDERABLES F inal Result [facility] [address] [place] [address] * Outside TSH Level (10/13/2017) TSH - External 1.66 0.5 - 5 uIU/L us Historical Provider LAB BLOOD ORDERABLES Roxanne l Result * (ABNORMAL) Lipid panel (03/14/2017 11:28 AM EDT) HDL 46 mg/dL [facility] Comment: Interpretation: Risk Level Females Decreased >55mg/dL Average 50-55 mg/dL Increased <50 mg/dL CHOLESTEROL 251(H) 0 - 240 mg/dL [facility] TRIGLYCERIDES 197(H) 30 - 160 mg/dL [facility] LDL 166(H) 50 - 129 mg/dL [facility] Comment: LDL levels in terms of risk for coronary heart disease: <100 mg/dL: Optimal 100-129 mg/dL: Near or above optimal 130-159 mg/dL: Borderline high 160-189 mg/dL: High >190 mg/dL: Very High CARDIAC RISK RATIO 5.5(H) 3.3 - 4.4 C [facility] Blood 03/14/2017 11:2 8 AM EDT 03/14/2017 11:32 AM EDT us Kesha Joshi MD LAB BLOOD ORDERABLES Final R esult [address] [address] * (ABNORMAL) Basic metabolic panel (03/14/2017 11:28 AM EDT) SODIUM 140 133 - 146 mmol/L [facility] CHLORIDE 104 96 - 108 mmol/L [facility] POTASSIUM 5.3(H) 3.3 - 5.1 mmol/L [facility] CO2 20(L) 21 - 35 mmol/L [facility] BUN 14 6 - 19 mg/dL [facility] CREATININE 0.50 0.5 - 1.5 mg/dL [facility] GLUCOSE 143(H) 70 - 99 mg/dL [facility] CALCIUM 9.0 8.4 - 10.3 mg/dL [facility] EGFR >60 >60 mL/min/1.7 3m2 [facility] Comment:Abnormal if <60. If patient is -Senegalese, multiply the result by 1.21. ANION GAP 21(H) 10 - 20 mmol/L [facility] Blood 03/14/2017 11:2 8 AM EDT 03/14/2017 11:32 AM EDT Kesha Joshi MD LAB BLOOD ORDERABLES Final R esult [facility] [address] [place] [address] from Last 3 Months or Most Recently Relevant to Health Maintenance Insurance MEDICARE PART A & B [facility] MEDICARE PART A & B [address] [place], [place] [address]HEALTH MEDICARE PART A & B HEALTH MEDICARE PART A & B Member Subscriber Plan / Payer ( fective 2018-Present) Name:Marlin Ponce Member ID:[id number] Relation to Subscriber:Self Name:Marlin Ponce Subscriber ID:[id number] Payer ID:[id number] Group ID:Not on file Type:Medicare Address: [employer] [address] [place] MED[place] PART A & B HEALTH MEDICARE PART A & B Member Subscriber Plan / Payer (Ef fective 2018-Present) Name:Marlin Ponce Member ID:[id number] Relation to Subscriber:Self Name:Marlin Ponce Subscriber ID:[id number] Payer ID:[id number] Group ID:Not on file Type:Medicare Address: [facility] [employer] [facility] [employer] [facility] [address] [place], [place] [id number] [place] PART A & B Member Subscriber Plan / Payer (Ef fective 2018-Present) Name:Marlin Ponce Member ID:[id number] Relation to Subscriber:Self Name:Marlin Ponce Subscriber ID:[id number] Payer ID:[id number] Group ID:Not on file Type:Medicare Address: [facility] [employer] [facility] [employer] [facility] [address] [place] [address] [place] PART A & [place] B [facility] Care Teams Sales And Marketing Associate Relationship Specialty Start Date End Date Florencia Escalante NP [facility] [place] [address] PCP - General Nurse Practitioner 11/02/17 Lucia Leon MD [address] [facility] [place] [address] [email or web address] Historical LMR Provider 03/05/17 Additional Source Comments The information contained in this document represents components of the legal health record. It is not the complete legal health record.[facility]
--- OUTSIDE RECORDS SUMMARY | 2025-01-29 18:43 | XMS_ITS | Encounter Summary ---
Author Organization [employer] Address [address] [place] [address] Care Team Providers Care Heavy Mobile Equipment Operator Name Role Phone Unavailable Primary Care Provider Unavailabl e Encounter Details Date Type Department Care Team (Latest Contact Info) Description 05/13/2021 Abstract [facility] CONVERSIONS Dental, Provider, DDS Social History Tobacco [...]
--- OUTSIDE RECORDS SUMMARY | 2025-01-29 18:43 | XMS_ITS | Clinical Summary ---
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 Strip Name Role Phone Unavailable Primary Care Provider Unavailabl e Allergies Active Allergy Reactions Criticality Noted Date Comments Gabapentin Hives 09/04/2024 Lisinopril 09/04/2024 low bp [place] 09/04/2024 Loratadine 09/04/2024 Metformin Anaphylaxis,Other High 03/14/2017 Oxycodone Itching 03/14/2017 Oxycodone-Acetaminophen Anaphylaxis High 09/04/2024 Paroxetine 09/04/2024 Penicillins 12/15/2022 Quetiapine Other 09/04/2024 Risperidone 09/04/2024 Soy Allergy (Obsolete) Other 09/04/2024 Tramadol 09/04/2024 Venlafaxine Other 09/04/2024 Zafirlukast 06/07/2022 Other reaction(s): Confusion Medications albuterol 108 (90 Base) MCG/ACT inhaler INHALE 1 PUFF EVERY 4 HOURS NEEDED FOR WHEEZE 12/17/19 22 Active UltiCare Alcohol Swabs 70 % pads CLEAN FINGER, ALLOW TO DRY PRIOR TO CHECKING BLOOD GLUCOSE. 3 TIMES DAILY AND NEEDED. T2DM E11.9 04/26/20 22 Active benztropine (Cogentin) 1 MG tablet Take 1 tablet by mouth every 12 (twelve) hours. 06/01/19 22 Active benztropine (Cogentin) 1 MG tablet Take 1 mg by mouth 2 times daily. 05/10/20 22 Active benztropine (Cogentin) 0.5 MG tablet Take 1 mg by mouth 2 times daily. 01/14/20 22 Active Symbicort 160-4.5 MCG/ACT inhaler Inhale 2 puffs 2 times daily. 05/19/19 23 Active budesonide-for moterol (Symbicort) 160-4.5 MCG/ACT inhaler Inhale 2 puffs 2 times daily. Active chlorhexidine (Periogard) 0.12 % solution Place 15 mL into mouth between cheek and gum every 12 (twelve) hours. 06/01/19 22 Active cholecalcifero l (Vitamin D3) 10 MCG/ML liquid 1 capsule Active cholecalcifero l (Vitamin D-3) 10 MCG (400 UNIT) capsule Take 1 capsule by mouth in the morning. Active clonazePAM (KlonoPIN) 0.5 MG tablet Active Coconut Oil 1000 MG capsule Active Dextrose, Diabetic Use, (glucose) 1 g chewable tablet Active divalproex (Depakote) 125 MG EC tablet Active divalproex (Depakote ER) 500 MG 24 hr tablet TAKE 2 TABLETS BY MOUTH EVERY DAY AT BEDTIME 03/01/20 22 Active divalproex (Depakote ER) 500 MG 24 hr tablet 2 tab(s) Active divalproex (Depakote ER) 250 MG 24 hr tablet Take 250 mg by mouth in the morning. 04/12/20 22 Active ferrous sulfate 325 (65 Fe) MG tablet 1 tablet Active FREESTYLE LITE test strip USE DIRECTED 3 TIMES A DAY 03/23/20 22 Active Levemir 100 UNIT/ML injection PLEASE SEE ATTACHED FOR DETAILED DIRECTIONS 05/22/19 23 Active insulin glargine (Lantus) 100 UNIT/ML injection INJECT 35 TO 45 UNITS SUBCUTANEAOUSLY DAILY DIRECTED 05/21/19 19 Active BD Insulin Syringe U/F 31G X 16 0.5 ML misc USE DAILY WITH INSULIN PRESCRIBED. 05/31/19 23 Active FreeStyle lancets USE DIRECTED 3 TIMES A DAY 05/21/19 23 Active levothyroxine (Synthroid, Levoxyl) 50 MCG tablet Take 50 mcg by mouth in the morning. 03/29/20 22 Active lisinopril 2.5 MG tablet 1 tablet Active Latuda 120 MG tablet Take 120 mg by mouth at bedtime. 04/27/20 22 Active lithium 600 MG capsule Active magnesium oxide 500 MG tablet Active Multiple Vitamin (Daily-Pato Multivitamin) tablet Take 1 tablet by mouth in the morning. 05/11/20 Active Multiple Vitamins-[place] als (CertaVite/Ant ioxidants) tablet Take 1 tablet by mouth in the morning. 11/05/19 Active OXcarbazepine (Trileptal) 600 MG tablet Take 600 mg by mouth 2 times daily. 05/21/19 Active OXcarbazepine (Trileptal) 150 MG tablet Active pantoprazole (ProtoNix) 20 MG EC tablet Take 20 mg by mouth in the morning. 05/29/19 Active pravastatin (Pravachol) 20 MG tablet Take 20 mg by mouth in the morning. 04/14/20 Active propranolol LA (Inderal LA) 120 MG 24 hr capsule Take 120 mg by mouth in the morning. 05/24/19 Active topiramate (Topamax) 25 MG tablet Take 25 mg by mouth in the morning. 03/29/20 Active Incruse Ellipta 62.5 MCG/ACT aerosol powder INHALE 1 PUFF BY MOUTH DAILY 03/03/20 Active doxycycline (Vibra-Tabs) 100 MG tablet Take 100mg every 12 hours on first day followed by 100mg once a day until gone 7 tablet 04/03/20 Active Basaglar KwikPen 100 UNIT/ML pen INJECT 28 UNITS SUBCUTANEOUSLY ONCE DAILY AT BEDTIME 06/13/19 Active Active Problems Problem Noted Date Diagnosed Date Diarrhea 09/04/2024 Episodic recurrent vertigo 09/04/2024 Mixed hyperlipidemia 09/04/2024 Intermittent urinary incontinence 09/04/2024 Dementia 12/15/2022 Diabetes 12/15/2022 Hypertension 05/05/2017 Sore throat 03/28/2017 Asthma 03/14/2017 Fibromyalgia 03/14/2017 Tremor 03/14/2017 Anxiety disorder 03/14/2017 Eczema 09/10/2013 Restless legs 09/10/2013 Rheumatoid arthritis 09/10/2013 Myopia 05/03/2005 Migraine 04/21/2005 Dyspnea 10/15/2004 Bipolar disorder 12/05/2002 Overview (09/04/2024): she does not see a therapist no lithium with lisinopril as she got toxicity bid home nursing to manage meds She liked her psych right now and says that they are dong labs GERD (gastroesophageal reflux disease) 3 Hypothyroidism 08/20/2002 Overview (09/04/2024): Has been stable on meds for many years Seizure 08/20/2002 Social History Tobacco Use Types Packs/Day Years Used Date Smoking Tobacco: Never Smokeless Tobacco: Never Tobacco Cessation:Counseling Given: Not Answered Comments Unknown Sex and Gender Information Value Date Recorded Sex Assigned at Female 03/14/2022 10:24 AM EDT Legal Sex Female 10:24 AM EDT Gender Identity Female 07/17/2023 2:07 PM EST Sexual Orientation Choose not to disclose 2021 10:24 AM EDT Last Filed Vital Signs Vital Sign Reading Time Taken Comments Blood Pressure 128/64 10/01/2024 2:14 PM EDT Pulse 71 06/07/2022 10:13 AM EST Temperature - - Respiratory Rate - - Oxygen Saturation - - Inhaled Oxygen Concentration - - Weight - - Height - - Body Mass Index - - Plan of Treatment Health Maintenance Due Date Last Done Comments CT Colonography 1968 Colonoscopy 1968 Colorectal Cancer Screening 1968 Depression Screening 1968 Diabetes: Hemoglobin A1C 1968 FIT DNA/Cologuard 1968 FIT 1968 FOBT 1968 HIV Screening 1968 Lipid Panel 1968 SDOH Screening 1968 Sigmoidoscopy 1968 Disability Screening 1968 Diabetes: Foot Exam 1978 Eye Exam 1978 Alcohol/Substance Use Screening 1980 Hepatitis C Screening 1986 Diabetes: Urine Protein Screening 1987 Hepatitis B Vaccines (1 of 3 - 19+ 3-dose series) 1987 Pap Smear 1989 Cervical Cancer Screening 1998 HPV/Cotest 1998 Pneumococcal Vaccine: 50+ Years (2 of 2 - PCV) 03/20/2008 03/20/2007 Mammogram 2008 Dental Oral Exam 06/17/2022 12/14/2021 Dental Prophylaxis 06/17/2022 12/14/2021 Dental X-Ray: Full Mouth 03/13/2024 03/12/2021 COVID-19 Vaccine ( season) 2025 11/28/2021, 03/24/2021, 07/29/2020, Additional history exists Influenza Vaccine (#1) 2025 2, 02/08/2011, 02/19/2009 Dental X-Ray: Bitewings 09/05/2025 09/04/2024, 12/14 Tobacco Screening 10/01/2025 10/01/2024 DTaP/Tdap/Td Vaccines (3 - Td or Tdap) 08/02/2032 08/02/2022, 11/06/2013 RSV Patients and Patients Aged 60 years or older (1 - 1-dose 75+ series) 2043 Meningococcal Vaccine Aged Out 02/29/2012 No octavio tiny eligible based on patient's age to complete this topic Zoster Vaccines Completed 02/08/2022, 11/12, 11/28/2021 HIB Vaccines Aged Out No longer eligi ble based on patient's age to complete this topic HPV Vaccines Aged Out No longer eligi ble based on patient's age to complete this topic Hepatitis A Vaccines Aged Out No long er eligible based on patient's age to complete this topic IPV Vaccines Aged Out No longer eligi ble based on patient's age to complete this topic Meningococcal B Vaccine Aged Out No l onger eligible based on patient's age to complete this topic RSV under 20 months Aged Out No longe r eligible based on patient's age to complete this topic Rotavirus Vaccines Aged Out No longer eligible based on patient's age to complete this topic Procedures Procedure Name Priority Date/Time Associated Diagnosis Comments BITEWING - SINGLE RADIOGRAPHIC IMAGE Routine 09/04/2024 3:30 PM EDT Dental caries Periodontal lesion due to traumatic occlusion from Last 3 Months or Most Recently Relevant to Health Maintenance Insurance [facility] MEDICAID STAND ADULT
--- OUTSIDE RECORDS SUMMARY | 2025-01-29 18:43 | XMS_ITS | Encounter Summary ---
Author Organization [employer] Address [address] [place] [address] Care Team Providers Care Certified Public Accountant Name Role Phone Unavailable Primary Care Provider Unavailabl e Reason for Visit * Reason Onset Date Comments antibiotic 02/16/2023 Encounter Details Date Type Department Care Team ([facility] Contact Info) Description 02/16/2023 Telephone [facility] [address] [place] [address] Lennie Mcnamara DDS antibiotic Social History Tobacco Use Types Packs/Day Years Used Date Smoking Tobacco: Never Comments Unknown Sex and Gender Information Value Date Recorded Sex Assigned at Female 03/14/2022 10:24 AM EDT Legal Sex Female 10:24 AM EDT Gender Identity Female 07/17/2023 2:07 PM EST Sexual Orientation Choose not to disclose 2021 10:24 AM EDT documented as of this encounter Miscellaneous Notes * Telephone Encounter - Maya Carranza - 02/16/2023 12:56 PM EDT Patient called back to ask that script be sent to [facility] on [address] in [place]. Pharmacy has been updated in the chart. * Telephone Encounter - Maya Carranza - 02/16/2023 12:48 PM EDT Patient called instating that the infection she had on the wisdom tooth that has to be extracted isback and she would like to have an antibiotic sent to the pharmacy. Offered an emergency for her tocome in today but her [employer] is sick and she is unsure when she will return to work documented in this encounter Plan of Treatment Not on file documented as of this encounter Visit Diagnoses Not on filedocumented in this encounter
--- OUTSIDE RECORDS SUMMARY | 2025-03-02 20:00 | XMS_ITS | Clinical Summary ---
Author Organization Unknown Care Team Providers Care Pigment Processor Name Role Phone KEELEY DIAZ, CRISTI Unavailable Unavailable KIT OLIVARES, ROSEANNA Unavailable Unavailable Payers Payer Name Policy Type Policy Number Effective Date Expira tion Date ON DEMAND MEDICARE - [place] [id number] [place] [id number] Problems Condition Name Condition Details Condition Category Status Onset Date Resolution Date Last Treatment Date Treating Clinician Comments TYPE 2 DIABETES MELLITUS WITHOUT COMPLICATION S Active 8-11 00:00: 00 BIPOLAR DISORDER, UNSPECIFIED Active 814 00:00: 00 UNSPECIFIED ASTHMA, UNCOMPLICATE D Active 818 00:00: 00 ESSENTIAL TREMOR Active 818 00:00: 00 ADULT FAILURE TO THRIVE Active 818 00:00: 00 FIBROMYALGIA Active 818 00:00: 00 GASTRO-ESOPH AGEAL REFLUX DISEASE WITHOUT ESOPHAGITIS Active 818 00:00: 00 HYPERLIPIDEM IA, UNSPECIFIED Active 8-18 00:00: 00 HYPOTHYROIDI SM, UNSPECIFIED Active 818 00:00: 00 UNSPECIFIED URINARY INCONTINENCE Active 818 00:00: 00 MIGRAINE, UNSP, NOT INTRACTABLE, WITHOUT STATUS MIGRAINOSUS Active 818 00:00: 00 CONVERSION DISORDER WITH SEIZURES OR CONVULSIONS Active 818 00:00: 00 ABNORMAL WEIGHT LOSS Active 818 00:00: 00 Allergies, Adverse Reactions, Alerts Allergy Name Allergy Type Status Severity Reaction(s) Onset Date Inactive Date Treating Clinician Comments BREO ELLIPTA Propensity to adverse reactions Active - 13:05: 22 EFFEXOR Propensity to adverse reactions Active 01-03 13:05: 29 LACTOSE MONOHYDRATE Propensity to adverse reactions Active 01-03 13:06: 02 PROZAC Propensity to adverse reactions Active 01-03 13:06: 10 PAXIL Propensity to adverse reactions Active 01-03 13:06: 24 PERCOCET Propensity to adverse reactions Active 01-03 13:06: 31 RISPERIDONE Propensity to adverse reactions Active 01-03 13:06: 46 SEROQUEL Propensity to adverse reactions Active 01-03 13:06: 54 SOY Propensity to adverse reactions Active 01-03 13:07: 01 GABAPENTIN Propensity to adverse reactions Active 01-03 13:07: 08 LISINOPRIL Propensity to adverse reactions Active 01-03 13:07: 14 LORATADINE Propensity to adverse reactions Active 01-03 13:07: 20 METFORMIN Propensity to adverse reactions Active 01-03 13:07: 28 TRAMADOL Propensity to adverse reactions Active 01-03 13:07: 36 Medications Ordered Medication Name Filled Medication Name Start Date Stop Date Current Medication? Ordering Clinician Indication Dosage Frequency Signature (SIG) Comments Components Advair HFA 45 mcg-21 mcg/actuati on aerosol inhaler 01-03 00:00: 00 Yes [id number] 2 puff 2 TIMES DAILY 2 puff 2 TIMES DAILY (route: inhalation ) Med Classific ation: Respirato ry Therapy Agents albuterol sulfate HFA 90 mcg/actuati on aerosol inhaler 01-03 00:00: 00 Yes [id number] 1 puff EVERY 4 HOURS 1 puff EVERY 4 HOURS (route: inhalation ) Med Classific ation: Respirato ry Therapy Agents benztropine 1 mg tablet 01-03 00:00: 00 Yes [id number] 1 tablet 2 TIMES DAILY 1 tablet 2 TIMES DAILY (route: oral) Med Classific ation: Central Nervous System Agents cetirizine 10 mg tablet 01-03 00:00: 00 Yes [id number] 1 tablet DAILY 1 tablet DAILY (route: oral) Med Classific ation: Respirato ry Therapy Agents Daily-Pato tablet 01-03 00:00: 00 Yes [id number] 1 tablet DAILY 1 tablet DAILY (route: oral) Med Classific ation: Electroly te Balance-N utritiona l Products Depakote ER 250 mg tablet,exte nded release 01-03 00:00: 00 Yes [id number] 2 tablet DAILY 2 tablet DAILY (route: oral) Med Classific ation: Central Nervous System Agents glucose 4 gram chewable tablet 01-03 00:00: 00 Yes [id number] 16 g DIRECTED 16 g DIRECTED (route: oral) Med Classific ation: Endocrine Incruse Ellipta 62.5 mcg/actuati on powder for inhalation 01-03 00:00: 00 Yes [id number] 1 inhalat ion DAILY 1 inhalation DAILY (route: inhalation ) Med Classific ation: Respirato ry Therapy Agents Latuda 120 mg tablet 01-03 00:00: 00 Yes [id number] 1 tablet BEDTIME 1 tablet BEDTIME (route: oral) Med Classific ation: Central Nervous System Agents levothyroxi ne 50 mcg tablet 01-03 00:00: 00 Yes [id number] 1 tablet DAILY 1 tablet DAILY (route: oral) Med Classific ation: Endocrine Mucinex 600 mg tablet, extended release 01-03 00:00: 00 Yes [id number] Per instruc tions DIRECTED Per instructio ns DIRECTED (route: oral) Med Classific ation: Respirato ry Therapy Agents naproxen 500 mg tablet 01-03 00:00: 00 Yes [id number] 1 tablet 2 TIMES DAILY 1 tablet 2 TIMES DAILY (route: oral) Med Classific ation: Analgesic , Anti-infl ammatory or Antipyret ic oxcarbazepi ne 600 mg tablet 01-03 00:00: 00 Yes [id number] 1 tablet DAILY 1 tablet DAILY (route: oral) Med Classific ation: Central Nervous System Agents pantoprazol e 20 mg tablet,onel yed release 01-03 00:00: 00 Yes [id number] 1 tablet DAILY 1 tablet DAILY (route: oral) Med Classific ation: Gastroint estinal Therapy Agents pravastatin 40 mg tablet 01-03 00:00: 00 Yes [id number] 1 tablet DAILY 1 tablet DAILY (route: oral) Med Classific ation: Cardiovas cular Therapy Agents Topamax 25 mg tablet 01-03 00:00: 00 Yes [id number] 1 tablet DAILY 1 tablet DAILY (route: oral) Med Classific ation: Central Nervous System Agents amoxicillin 500 mg tablet 01-29 00:00: 00 02-05 23:59 :00 No [id number] 1 tablet 3 TIMES DAILY 1 tablet 3 TIMES DAILY (route: oral) Med Classific ation: Anti-Infe ctive Agents Vital Signs Vital Name Observation Time Observation Value Commen ts Temperature 2025-01-22 06:36:00.000 97.7 [degF] Temperature 2025-01-17 09:07:00.000 97.9 [degF] Temperature 2025-01-13 12:24:00.000 97.8 [degF] Temperature 2025-01-04 12:43:00.000 97.8 [degF] Temperature 2025-01-03 10:18:00.000 98.3 [degF] Height 2025-01-03 10:18:00.000 61 [in_us] Pulse 2025-01-28 06:53:00.000 70 /min Pulse 2025-01-22 06:36:00.000 68 /min Pulse 2025-01-20 07:02:00.000 75 /min Pulse 2025-01-17 09:07:00.000 75 /min Pulse 2025-01-14 10:15:00.000 79 /min Pulse 2025-01-13 12:24:00.000 68 /min Pulse 2025-01-04 12:43:00.000 88 /min Pulse 2025-01-03 10:18:00.000 80 /min O2 Saturation (%) 2025-01-22 06:36:00.000 97 % O2 Saturation (%) 2025-01-17 09:07:00.000 97 % O2 Saturation (%) 2025-01-13 12:25:00.000 98 % O2 Saturation (%) 2025-01-03 10:18:00.000 99 % Respirations 2025-01-28 06:53:00.000 16 /min Respirations 2025-01-27 06:46:00.000 16 /min Respirations 2025-01-23 06:48:00.000 16 /min Respirations 2025-01-22 06:36:00.000 16 /min Respirations 2025-01-21 06:35:00.000 16 /min Respirations 2025-01-20 07:02:00.000 16 /min Respirations 2025-01-17 09:07:00.000 16 /min Respirations 2025-01-16 10:06:00.000 16 /min Respirations 2025-01-15 06:44:00.000 16 /min Respirations 2025-01-14 10:15:00.000 16 /min Respirations 2025-01-13 12:24:00.000 16 /min Respirations 2025-01-09 10:53:00.000 16 /min Respirations 2025-01-07 10:17:00.000 16 /min Respirations 2025-01-04 12:43:00.000 16 /min Respirations 2025-01-03 10:18:00.000 16 /min Systolic Blood Pressure 2025-01-28 06:53:00.000 140 mm [Hg] Systolic Blood Pressure 2025-01-22 06:36:00.000 146 mm [Hg] Systolic Blood Pressure 2025-01-20 07:02:00.000 141 mm [Hg] Systolic Blood Pressure 2025-01-17 09:07:00.000 145 mm [Hg] Systolic Blood Pressure 2025-01-14 10:15:00.000 143 mm [Hg] Systolic Blood Pressure 2025-01-13 12:24:00.000 122 mm [Hg] Systolic Blood Pressure 2025-01-04 12:43:00.000 128 mm [Hg] Systolic Blood Pressure 2025-01-03 10:18:00.000 126 mm [Hg] Diastolic Blood Pressure 2025-01-28 06:53:00.000 78 mm [Hg] Diastolic Blood Pressure 2025-01-22 06:36:00.000 85 mm [Hg] Diastolic Blood Pressure 2025-01-20 07:02:00.000 76 mm [Hg] Diastolic Blood Pressure 2025-01-17 09:07:00.000 79 mm [Hg] Diastolic Blood Pressure 2025-01-14 10:15:00.000 75 mm [Hg] Diastolic Blood Pressure 2025-01-13 12:24:00.000 70 mm [Hg] Diastolic Blood Pressure 2025-01-04 12:43:00.000 60 mm [Hg] Diastolic Blood Pressure 2025-01-03 10:18:00.000 80 mm [Hg] Plan of Treatment Planned Activity Planned Date Details Comments Future Scheduled Test SKILLED NU RSE TO EVALUATE PATIENT, IDENTIFY PRIMARY AND CO-MORBID CONDITIONS CODED PER CODING GUIDELINES, AND DEVELOP PATIENT SPECIFIC PLAN OF CARE THAT INCLUDES PATIENT GOAL FOR HOME HEALTH. [code = SKILLED NURSE TO EVALUATE PATIENT, IDENTIFY PRIMARY AND CO-MORBID CONDITIONS CODED PER CODING GUIDELINES, AND DEVELOP PATIENT SPECIFIC PLAN OF CARE THAT INCLUDES PATIENT GOAL FOR HOME HEALTH.] Future Scheduled Test SKILLED NU RSE FOR MEDICATION ADMINISTRATION PER MEDICATION LIST TO BE PERFORMED EACH VISIT, PREPOUR MEDICATIONS THROUGH TO NEXT VISIT [code = SKILLED NURSE FOR MEDICATION ADMINISTRATION PER MEDICATION LIST TO BE PERFORMED EACH VISIT, PREPOUR MEDICATIONS THROUGH TO NEXT VISIT] Future Scheduled Test PATIENT MA Y HAVE ONE SET OF EMERGENCY MEDICATION NOT TO BE PRE-POURED ANY SOONER THAN 24 HOURS BEFORE SEVERE INCLEMENT WEATHER OR EMERGENT EVENT AND FOLLOWING SKILLED NURSE EVALUATION OF PATIENT SAFETY. [code = PATIENT MAY HAVE ONE SET OF EMERGENCY MEDICATION NOT TO BE PRE-POURED ANY SOONER THAN 24 HOURS BEFORE SEVERE INCLEMENT WEATHER OR EMERGENT EVENT AND FOLLOWING SKILLED NURSE EVALUATION OF PATIENT SAFETY.] Future Scheduled Test SKILLED NU RSE TO O/A OF PATIENTS MENTAL/BEHAVIORAL STATUS, ASSESS VITAL SIGNS WEEKLY, ALLOW 2 PRNS FOR MEDICATION MANAGEMENT. [code = SKILLED NURSE TO O/A OF PATIENTS MENTAL/BEHAVIORAL STATUS, ASSESS VITAL SIGNS WEEKLY, ALLOW 2 PRNS FOR MEDICATION MANAGEMENT.] Future Scheduled Test SKILLED NU RSE FOR O/A OF ALTERED MOOD [code = SKILLED NURSE FOR O/A OF ALTERED MOOD] Future Scheduled Test MEDICATION S WILL BE HELD AND STORED IN LOCKBOX [code = MEDICATIONS WILL BE HELD AND STORED IN LOCKBOX] Future Scheduled Test SKILLED NU RSE TO ADMINISTER MEDICATIONS DAILY AND PRE-POUR MEDICATIONS DAILY PER MEDICATION LIST. [code = SKILLED NURSE TO ADMINISTER MEDICATIONS DAILY AND PRE-POUR MEDICATIONS DAILY PER MEDICATION LIST.] Future Scheduled Test SKILLED NU RSE FOR O/A AND SKILLED TEACHING RELATED TO MANAGEMENT OF DEPRESSIVE SYMPTOMS AND/OR DEPRESSION. SN TO REPORT SIGNIFICANT CHANGE IN DEPRESSIVE SYMPTOMS TO CLINICAL PROVIDER FOR EARLY INTERVENTION. [code = SKILLED NURSE FOR O/A AND SKILLED TEACHING RELATED TO MANAGEMENT OF DEPRESSIVE SYMPTOMS AND/OR DEPRESSION. SN TO REPORT SIGNIFICANT CHANGE IN DEPRESSIVE SYMPTOMS TO CLINICAL PROVIDER FOR EARLY INTERVENTION.] Future Scheduled Test SKILLED NU RSE FOR O/A AND TEACHING OF DIABETIC MANAGEMENT INCLUDING BLOOD SUGAR MONITORING/USE OF GLUCOMETER, DIABETIC DIET, LOWER EXTREMITY SKIN INSPECTION, PROPER SKIN/FOOT CARE, AND SIGNS AND SYMPTOMS HYPO/HYPERGLYCEMIA TO REPORT. [code = SKILLED NURSE FOR O/A AND TEACHING OF DIABETIC MANAGEMENT INCLUDING BLOOD SUGAR MONITORING/USE OF GLUCOMETER, DIABETIC DIET, LOWER EXTREMITY SKIN INSPECTION, PROPER SKIN/FOOT CARE, AND SIGNS AND SYMPTOMS HYPO/HYPERGLYCEMIA TO REPORT.] Future Scheduled Test SKILLED NU RSE TO OBTAIN BLOOD SUGAR PRN FOR SIGNS AND SYMPTOMS OF HYPO/HYPERGLYCEMIA. IF OBTAINED BY PATIENT/CAREGIVER PRIOR TO VISIT AND PATIENT IS NOT SYMPTOMATIC, SKILLED NURSE TO RECORD READING FROM PATIENT LOG. [code = SKILLED NURSE TO OBTAIN BLOOD SUGAR PRN FOR SIGNS AND SYMPTOMS OF HYPO/HYPERGLYCEMIA. IF OBTAINED BY PATIENT/CAREGIVER PRIOR TO VISIT AND PATIENT IS NOT SYMPTOMATIC, SKILLED NURSE TO RECORD READING FROM PATIENT LOG.] Future Scheduled Test SKILLED NU RSE TO PERFORM HOME SAFETY AND FALL ASSESSMENT AND PROVIDE INSTRUCTION TO IMPLEMENT HOME SAFETY AND FALL PREVENTION STRATEGIES. [code = SKILLED NURSE TO PERFORM HOME SAFETY AND FALL ASSESSMENT AND PROVIDE INSTRUCTION TO IMPLEMENT HOME SAFETY AND FALL PREVENTION STRATEGIES.] Future Scheduled Test SKILLED NU RSE FOR OBSERVATION AND ASSESSMENT OF PATIENT S PAIN LEVEL AND EFFECTIVENESS OF PAIN MANAGEMENT REGIMEN. SKILLED NURSE TO INSTRUCT PATIENT/CAREGIVER REGARDING PHARMACOLOGIC AND NON-PHARMACOLOGIC PAIN CONTROL MEASURES. SKILLED NURSE TO REPORT TO PHYSICIAN IF PAIN IS UNCONTROLLED WITH CURRENT PAIN MANAGEMENT REGIMEN. [code = SKILLED NURSE FOR OBSERVATION AND ASSESSMENT OF PATIENT S PAIN LEVEL AND EFFECTIVENESS OF PAIN MANAGEMENT REGIMEN. SKILLED NURSE TO INSTRUCT PATIENT/CAREGIVER REGARDING PHARMACOLOGIC AND NON-PHARMACOLOGIC PAIN CONTROL MEASURES. SKILLED NURSE TO REPORT TO PHYSICIAN IF PAIN IS UNCONTROLLED WITH CURRENT PAIN MANAGEMENT REGIMEN.] Future Scheduled Test PATIENT OSBORN S A RISK OF HOSPITALIZATION AND ED USE. SKILLED NURSE TO ESTABLISH SUPPORT MEASURES TO MINIMIZE RISK OF HOSPITALIZATION AND ED USE, AND INSTRUCT PATIENT/CAREGIVER ON METHODS TO REDUCE AVOIDABLE HOSPITALIZATION AND ED USE. [code = PATIENT HAS A RISK OF HOSPITALIZATION AND ED USE. SKILLED NURSE TO ESTABLISH SUPPORT MEASURES TO MINIMIZE RISK OF HOSPITALIZATION AND ED USE, AND INSTRUCT PATIENT/CAREGIVER ON METHODS TO REDUCE AVOIDABLE HOSPITALIZATION AND ED USE.] Future Scheduled Test SKILLED NU RSE TO REVIEW PATIENT MEDICATIONS. INSTRUCT PATIENT/CAREGIVER ON MONITORING OF EFFECTIVENESS, ADVERSE DRUG REACTIONS, SIDE EFFECTS OF ALL MEDICATIONS (PRESCRIPTION/-OTC), AND HOW AND WHEN TO REPORT PROBLEMS. [code = SKILLED NURSE TO REVIEW PATIENT MEDICATIONS. INSTRUCT PATIENT/CAREGIVER ON MONITORING OF EFFECTIVENESS, ADVERSE DRUG REACTIONS, SIDE EFFECTS OF ALL MEDICATIONS (PRESCRIPTION/-OTC), AND HOW AND WHEN TO REPORT PROBLEMS.] Future Scheduled Test SKILLED NU RSE FOR O/A OF CLIENT'S SOCIAL ISOLATION AND PROVIDE ASSISTANCE TO CLIENT IN DEVELOPMENT OF PLANNED ACTIVITIES [code = SKILLED NURSE FOR O/A OF CLIENT'S SOCIAL ISOLATION AND PROVIDE ASSISTANCE TO CLIENT IN DEVELOPMENT OF PLANNED ACTIVITIES] Future Scheduled Test SKILLED NU RSE TO ASSESS PATIENT S PSYCHOSOCIAL STATUS TO IDENTIFY POTENTIAL ISSUES THAT MAY COMPLICATE THE PROVISION OF THE PLAN OF CARE INCLUDING THE PATIENT S ABILITY TO ACCESS COMMUNITY RESOURCES AND PSYCHOSOCIAL SUPPORT SERVICES. [code = SKILLED NURSE TO ASSESS PATIENT S PSYCHOSOCIAL STATUS TO IDENTIFY POTENTIAL ISSUES THAT MAY COMPLICATE THE PROVISION OF THE PLAN OF CARE INCLUDING THE PATIENT S ABILITY TO ACCESS COMMUNITY RESOURCES AND PSYCHOSOCIAL SUPPORT SERVICES.] Future Scheduled Test SKILLED NU RSE TO ASSESS HIGH RISK PATIENT FOR CHANGE IN CONDITION: MOOD/BEHAVIOR, MISSED MEDICATIONS, CHANGE IN LIVING SITUATION, HOMICIDAL IDEATION, ACTIVE SUBSTANCE USE WITH MOOD ALTERING SUBSTANCES INCLUDING BUT NOT LIMITED TO COCAINE, CRACK, HEROIN, FENTANYL AND ENSURE EARLY IDENTIFICATION TO MAINTAIN SAFETY. SKILLED NURSE WILL MAINTAIN SITUATIONAL AWARENESS FOR SAFETY AND WILL NOTIFY CLINICAL COLD ROLL PACK[employer]ET [employer]ON AND PHYSICIAN/PROVIDER WITH ANY CHANGE IN CONDITION. [code = SKILLED NURSE TO ASSESS HIGH RISK PATIENT FOR CHANGE IN CONDITION: MOOD/BEHAVIOR, MISSED MEDICATIONS, CHANGE IN LIVING SITUATION, HOMICIDAL IDEATION, ACTIVE SUBSTANCE USE WITH MOOD ALTERING SUBSTANCES INCLUDING BUT NOT LIMITED TO COCAINE, CRACK, HEROIN, FENTANYL AND ENSURE EARLY IDENTIFICATION TO MAINTAIN SAFETY. SKILLED NURSE WILL MAINTAIN SITUATIONAL AWARENESS FOR SAFETY AND WILL NOTIFY CLINICAL COLD ROLL PACKER SHEET IRON AND PHYSICIAN/PROVIDER WITH ANY CHANGE IN CONDITION.] Future Scheduled Test SKILLED NU RSE WILL MAINTAIN SITUATIONAL AWARENESS FOR SAFETY AND WILL NOTIFY CLINICAL COLD ROLL PACKER SHEET IRON AND PHYSICIAN/PROVIDER WITH ANY CHANGE IN CONDITION. [code = SKILLED NURSE WILL MAINTAIN SITUATIONAL AWARENESS FOR SAFETY AND WILL NOTIFY CLINICAL COLD ROLL PACKER SHEET IRON AND PHYSICIAN/PROVIDER WITH ANY CHANGE IN CONDITION.] Future Scheduled Test SKILLED NU RSE TO PROVIDE INSTRUCTION TO PATIENT/CAREGIVER RELATED TO DISCHARGE PLANNING. [code = SKILLED NURSE TO PROVIDE INSTRUCTION TO PATIENT/CAREGIVER RELATED TO DISCHARGE PLANNING.] Goal Patient Goal - TO TAKE MY ME DS Goal Provider Goal - A PLAN OF CARE WILL BE ESTABLISHED THAT MEETS PATIENT'S ALF NEEDS AND INCLUDES PATIENT GOAL FOR HOME HEALTH. Goal Provider Goal - PATIENT WILL COMPLY WITH MEDICATION WHEN NURSE ADMINISTERS THROUGHOUT CERTIFICATION PERIOD. Goal Provider Goal - MEDICATION WILL BE AVAILABLE DURING INCLEMENT WEATHER OR EMERGENT EVENT THROUGHOUT CERTIFICATION PERIOD. Goal Provider Goal - ALTERED MENTAL/BEHAVIORAL STATUS WILL BE IDENTIFIED PROMPTLY AND INTERVENTION INITIATED QUICKLY TO MINIMIZE ASSOCIATED RISKS THROUGHOUT CERTIFICATION PERIOD. Goal Provider Goal - PATIENT WILL BE ABLE TO PERFORM DAILY FUNCTIONS AND HAVE OPTIMAL IMPROVEMENT IN MOOD STABILITY THROUGHOUT CERTIFICATION PERIOD. Goal Provider Goal - MEDICATION WILL BE STORED IN LOCKBOX FOR SAFETY. Goal Provider Goal - PATIENT WILL COMPLY WITH MEDICATION WHEN SKILLED NURSE ADMINISTERS AND PRE-POURS MEDICATION THROUGHOUT CERTIFICATION PERIOD. Goal Provider Goal - PATIENT WILL REMAIN SAFE WITHOUT DECOMPENSATION IN DEPRESSIVE CONDITION, WHILE MAINTAINING OPTIMAL LEVEL OF MENTAL HEALTH AND WELL BEING THROUGHOUT CERTIFICATION PERIOD. Goal Provider Goal - PATIENT/CAREGIVER WILL VERBALIZE/DEMONSTRATE KNOWLEDGE OF DIABETIC MANAGEMENT. CHANGES IN DIABETIC STATUS WILL BE IDENTIFIED AND REPORTED TO PHYSICIAN FOR PROMPT INTERVENTION THROUGHOUT THE CERTIFICATION PERIOD. Goal Provider Goal - BLOOD SUGAR READING WILL BE OBTAINED ORDERED THROUGHOUT CERTIFICATION PERIOD. Goal Provider Goal - PATIENT/CAREGIVER WILL VERBALIZE/DEMONSTRATE EFFECTIVE HOME SAFETY AND FALL PREVENTION STRATEGIES THROUGHOUT CERTIFICATION PERIOD. Goal Provider Goal - PATIENT/CAREGIVER WILL DEMONSTRATE UNDERSTANDING OF PHARMACOLOGIC AND NONPHARMACOLOGIC PAIN CONTROL MEASURES AND PATIENT WILL HAVE IMPROVEMENT IN PAIN INTERFERING WITH ACTIVITY EVIDENCED BY PAIN AT A LEVEL THAT IS ACCEPTABLE TO THE PATIENT AND PAIN LEVEL WITHIN ESTABLISHED PARAMETERS BY END OF CERTIFICATION PERIOD. Goal Provider Goal - PATIENT WILL HAVE SUPPORT MEASURES ESTABLISHED TO PREVENT HOSPITALIZATION AND ED USE AND PATIENT/CAREGIVER WILL VERBALIZE/DEMONSTRATE METHODS TO REDUCE AVOIDABLE HOSPITALIZATION AND ED USE BY END OF EPISODE. Goal Provider Goal - PATIENT/CAREGIVER WILL VERBALIZE UNDERSTANDING OF EDUCATION PROVIDED ON MEDICATIONS BY THE END OF THE CERTIFICATION PERIOD. Goal Provider Goal - PATIENT WILL DEMONSTRATE AN INCREASED INTEREST IN SOCIALIZATION AND ACTIVITIES BY THE END OF THE CERTIFICATION PERIOD. Goal Provider Goal - PSYCHOSOCIAL NEEDS WILL BE IDENTIFIED AND PLAN IMPLEMENTED TO MINIMIZE RISK THROUGHOUT CERTIFICATION PERIOD. Goal Provider Goal - HIGH SAFETY RISK PATIENT WILL REMAIN SAFE IN THE COMMUNITY AND WILL BE FREE FROM DANGER TO SELF AND OTHERS THROUGHOUT CERTIFICATION PERIOD. Goal Provider Goal - PATIENT WILL REMAIN SAFE IN THE COMMUNITY AND WILL BE FREE OF DANGER TO SELF AND OTHERS THROUGHOUT THE CERTIFICATION PERIOD. Goal Provider Goal - PATIENT/CAREGIVER WILL VERBALIZE UNDERSTANDING OF DISCHARGE PLANNING INSTRUCTIONS BY DATE OF DISCHARGE. Progress Notes Progress Notes <paragraph>[Visit Date: 2024 by ROSEANNA PANTOJA RN]:</paragraph><paragraph>JAN 27 SNV</paragraph><paragraph>ADMINISTERED AM MEDICATION IN VIEW OF NURSE FROM LOCKBOX. PRE-FILLED REMAINDER OF MEDICATION PER ORDER. PREVIOUSLY PRE-FILLED MEDS NOTED TO BE EMPTIED FROM YESTERDAY PATIENT VERBALIZE COMPLIANCE.</paragraph><paragraph>FBG 170, OT TOLERATED INSULIN TO MODE WELL. PT REPROTED SHE WOULD BE EATING WHEN THIS NURSE LEFT.</paragraph><paragraph>PT PASSIVE DURING NURSING ASSESSMENT, QUIET AND MINIMAL EYE CONTACT. REPORTED SHE WAS TIRED, AND POOR SLEEP LAST NIGHT. DENIED ANY ANXIETY OR DEPRESSION, SI,HI,AH,VH. </paragraph><paragraph>EDUCATED ON DIABETIC DIET CHOICES, SUCH CARB MODERATION, HIGH PROYEIN. ALSO DISCUSSED WATER FOR BEVERAGE CHOICES VS SODA OR JUICE</paragraph> <paragraph>[Visit Date: 2024 by ROSEANNA PANTOJA RN]:</paragraph><paragraph>JAN 28 SNV</paragraph><paragraph></paragraph><paragraph>ADMINISTERED AM MEDICATION IN VIEW OF NURSE FROM LOCKBOX. PRE-FILLED REMAINDER OF MEDICATION PER ORDER. PREVIOUSLY PRE-FILLED MEDS NOTED TO BE EMPTIED FROM YESTERDAY PATIENT VERBALIZE COMPLIANCE.</paragraph><paragraph>PROMPTED PATIENT TO SELF-ADMINISTER INHALERS. PATIENT COMPLIANT. RINSE MOUTH AFTER WELL.</paragraph><paragraph></paragraph><paragraph>FASTING BLOOD GLUCOSE 214, ADMINISTERED INSULIN PER ORDER TO WRITE UPPER ARM. PATIENT TOLERATED WELL. REMINDED PATIENT TO EAT WITHIN HALF AN HOUR. PATIENT VERBALIZE UNDERSTANDING STAGE SHE WOULD HAVE A MUFFIN.</paragraph><paragraph>EDUACTED PT ON MEDICATION COMPLIANCE, DISCUSS PRE-FILLED PM MEDICATION FOR PT TO SELF ADMINISTER. </paragraph><paragraph></paragraph><paragraph>PT PLEASANT AND CHEERFUL, REPORTED GOING OUT WITH [employer] TODAY AND LOOKING FORWARD TO IT. NO ACUTE CONCERNS</paragraph> <paragraph>[Visit Date: 2024 by ROSEANNA PANTOJA RN]:</paragraph><paragraph>JAN 29 SNV</paragraph><paragraph>ADMINISTERED AM MEDICATION IN VIEW OF NURSE FROM LOCKBOX. PRE-FILLED REMAINDER OF MEDICATION PER ORDER. PREVIOUSLY PRE-FILLED MEDS NOTED TO BE EMPTIED FROM YESTERDAY PATIENT VERBALIZE COMPLIANCE.</paragraph><paragraph>PROMPTED PATIENT TO SELF-ADMINISTER INHALERS. TOLERATED WELL. DENIED ANY ACUTE COMPLAINTS.</paragraph><paragraph>PATIENT STARTED ON ANTIBIOTIC BY DENTIST FOR TOOTH INFECTION. TEMPERATURE 98.2. PATIENT DENIED ANY PAIN AT SITE</paragraph><paragraph>EDUCATION PROVIDED TO PATIENT ON SIDES AND SYMPTOMS OF INFECTION TO MONITOR FOR AND TO ALERT STAFF AND NURSE</paragraph> Encounters Start Date/Time End Date/Time Encounter Type Admission Type Attending [facility] Facility Care Department Encounter ID Discharge Date Discharge Status Discharge Condition Discharge Reason Percent Goals Met 2025-01-03 00:00:00 2025-03-03 00:00:00 Outpatient NEW ADMISSION ROSEANNA PANTOJA [facility] [id number] 52.50
== END 2025-01-29 15:52 | disposition home or self-care (01) ==
LOC: HO.HSMS 15:12
PROVIDERS: Visit Provider Psychiatry & Neurology Neurology
DX: G43.909 Migraine, unspecified, not intractable, without status migrainosus (principal); G47.9 Sleep disorder, unspecified; G25.1 Drug-induced tremor; R41.89 Other symptoms and signs involving cognitive functions and awareness
CPT/HCPCS: 99214; G2211

== ENCOUNTER → 2025-01-29 15:11 | Outpatient (BNVA) | payer MEDICARE, MEDICAID, SELFPAY | PROVIDERS: Visit Provider Psychiatry & Neurology Neurology | DX: G25.1 Drug-induced tremor (principal); G43.909 Migraine, unspecified, not intractable, without status migrainosus; G47.9 Sleep disorder, unspecified; F09 Unspecified mental disorder due to known physiological condition; Z79.899 Other long term (current) drug therapy | CPT/HCPCS: 99212 ==

== ENCOUNTER 2025-03-17 15:47 | Emergency (ER) | payer MEDICARE, MEDICAID, SELFPAY ==
[2025-03-17] VITALS (8 sets, daily range): BP systolic 119–156; BP diastolic 56–89; PULSE 69–75; RESP 12–18; TEMP 36.3–36.6; O2SAT 95–99; BMI 24.8
--- NOTE | ~2025-03-17 | XR_ITS ---
CLINICAL HISTORY: pre MRI clearance 1 view abdomen Comparison: None provided Findings: No pneumoperitoneum or pneumatosis. Few phleboliths projected over the pelvic floor. Mild osteopenia. Prior cholecystectomy. IMPRESSION: 1. No acute abdominal findings. This document has been electronically signed by: Gumaro Camargo MD on 03/17/2025 18:49:07
--- NOTE | ~2025-03-17 | CT_ITS ---
CLINICAL HISTORY: vertigo R O stroke CT head without contrast Comparison: None provided Findings: No intra-axial mass, midline shift, hydrocephalus, or acute hemorrhage. No significant atrophy-like change or white matter disease. There is no sinus or mastoid fluid. The orbits are within normal limits. No skull fracture. IMPRESSION: 1. No acute intracranial findings. This document has been electronically signed by: Gumaro Camargo MD on 03/17/2025 18:49:34
--- NOTE | ~2025-03-17 | XR_ITS ---
CLINICAL HISTORY: pre MRI clearance 1 view chest x-ray Comparison: CR/SR - XR CHEST 2 VIEWS - 05/06/23 13:22 EST Findings: The lungs are clear. Cardiomegaly. No acute fracture. IMPRESSION: 1. No acute findings. This document has been electronically signed by: Gumaro Camargo MD on 03/17/2025 18:48:11
--- NOTE | ~2025-03-17 | XR_ITS ---
CLINICAL HISTORY: pre MRI clearance 2 view skull Comparison: None provided Findings: No acute fractures. No sinus fluid. Mastoids are clear. No radiopaque foreign body. IMPRESSION: 1. No acute findings This document has been electronically signed by: Gumaro Camargo MD on 03/17/2025 18:44:04
--- NOTE | ~2025-03-17 | MR_ITS ---
CLINICAL HISTORY: vertigo MR Brain without gadolinium Comparison: CT/REG/SR - CT HEAD/BRAIN WO IV CON - 03/17/25 18:11 EST CR - XR SKULL <4V - 03/17/25 18:03 EST Findings: No restricted diffusion. No intra-axial mass or hemorrhage. No midline shift. No hydrocephalus. Vascular flow voids are intact. The orbits are normal. The sinuses and mastoid air cells are clear. No focal bone lesion. IMPRESSION: No acute findings. This document has been electronically signed by: Gumaro Camargo MD on 03/17/2025 21:09:55
--- NOTE | 2025-03-17 16:28 | ECG_ITS ---
Test Reason : dizziness Blood Pressure : */* mmHG Vent. Rate : 75 BPM Atrial Rate : 75 BPM P-R Int : 170 ms QRS Dur : 96 ms QT Int : 402 ms P-R-T Axes : 2 0 72 degrees QTcB Int : 448 ms Normal sinus rhythm Minimal voltage criteria for LVH, may be normal variant ( R in aVL ) ST & T wave abnormality, consider anterior ischemia Abnormal ECG When compared with ECG of 22-Aug-2024 22:17, VA interval has decreased Referred By: El Gomez Electronically Signed By: Salvador Coffey
--- NOTE | 2025-03-17 16:31 | PC.NURSE ---
Patient vomited 500 mL yellow/brown colored vomit shortly after ambulating to bathroom. Witnessed by this RN & Bryce Nieto RN. Pt reports I feel like I'm gonna be sick , ambulated with very slow gait, used walker for safety. Upon returning to room, pt vomited. Dr. Patricia meyers.
--- NOTE | 2025-03-17 16:36 | ED_ITS ---
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 Gomez HPI Narrative: 54-year-old female Brought in by ambulance for evaluation of vertigo, nausea, vomiting started since this morning, as per EMS SUPERVISOR REACTOR FUELING found the patient p.o. and not responding to her patient herself declined passing out or having. Of blackout. Patient otherwise declined any headache, no blurry vision. Patient feel room spinning and vertigo with changing position however patient feel nauseous and vomited a couple times in the ED. Related Data Home Medications ?Medication ?Instructions ?Recorded ?Confirmed budesonide-formoterol HFA 160 2 puff inhalation Q12H 0 05/21/21 01/29/25 mcg-4.5 mcg/actuation aerosol inhaler (Symbicort) insulin detemir U-100 100 unit/mL See Rx Instructions subcut .COMPLEX 05/21/21 01/29/25 subcutaneous solution (Levemir U-100 Insulin) levothyroxine 50 mcg tablet 50 mcg PO DAILY 05/21/21 0 01/29/25 oxcarbazepine 600 mg tablet 600 mg PO BID 05/21/21 pantoprazole 20 mg tablet,delayed 20 mg PO DAILY 05/2101/29/25 release blood sugar diagnostic (FreeStyle #10 ea 07/23/2101/13 Lite Strips) insulin syringe-needle U-100 0.5 #10 ea 07/23/2101/29 mL 31 gauge x 5/16 (BD Insulin Syringe Ultra-Fine) umeclidinium 62.5 mcg/actuation 1 inh PO DAILY 2 01/29/25 blister powder for inhalation (Incruse Ellipta) albuterol sulfate 90 mcg/actuation 0 mcg inhalation 01/29/25 aerosol inhaler divalproex 500 mg tablet,extended 1,000 mg PO BEDTIME 03/03/22 01/29/25 release 24 hr multivitamin-ferrous 1 tab PO DAILY 03/03/2201/13 fumarate-folic acid 18 mg-400 mcg tablet (Certavite-Antioxidant) lancets 28 gauge (FreeStyle #100 ea 03/07/22 01/29/25 Lancets) divalproex 500 mg tablet,delayed 500 mg PO .am 3 01/29/25 release lurasidone 120 mg tablet 120 mg PO DAILY 05/06/23 pravastatin 40 mg tablet 40 mg PO DAILY 05/06/2301/13 alcohol swabs pad topical TID 01/29/25 cetirizine 10 mg tablet 10 mg PO DAILY PRN 01/29/25 01/29/25 pen needle, diabetic 31 gauge x #1,200 ea 01/29/2507/28 Previous Rx's ?Medication ?Instructions ?Recorded propranolol 120 mg capsule,24 120 mg PO DAILY #30 caps 09/25/24 hr,extended release topiramate 25 mg tablet 25 mg PO DAILY #90 tabs 11/12 11/06 compression panty,small-medium #1 ea 12/17/24 diclofenac sodium 1 % topical gel 2 g topical QID PRN pain (scale 12/17/24 (Arthritis Pain (diclofenac)) score 1-3) #100 grams benztropine 1 mg tablet 1 mg PO BID 30 days #60 tabs 01/21/25 meclizine 25 mg tablet 25 mg PO TID PRN dizziness # 30 tabs 03/17/25 Allergies Allergy/AdvReac Type Severity Reaction Status Date / Time acetaminophen (From PERCOCET) Allergy Unknown UNKNOWN Verified 03/17/25 16:11 barium sulfate (BARIUM Allergy Unknown UNKNOWN Verified 03/17/25 16:11 SULFATE) bupropion (From WELLBUTRIN) Allergy Unknown UNK Verified 03/17/25 16:11 cefaclor (From CECLOR) Allergy Unknown UNKNOWN Verified 03/17/25 16:11 erythromycin base Allergy Unknown UNKNOWN Verified 03/17/25 16:11 (ERYTHROMYCIN BASE) fluoxetine (From PROZAC) Allergy Unknown UNKNOWN Verified 03/17/25 16:11 gabapentin (GABAPENTIN) Allergy Unknown UNKNOWN Verified 03/17/25 16:11 Iodinated Contrast Media (IV Allergy Unknown UNKNOWN Verified 03/17/25 16:11 CONTRAST) loratadine (LORATADINE) Allergy Unknown UNKNOWN Verified 03/17/25 16:11 metformin (METFORMIN) Allergy Unknown UNKNOWN Verified 03/17/25 16:11 oxycodone (From PERCOCET) Allergy Unknown UNKNOWN Verified 03/17/25 16:11 paroxetine (From PAXIL) Allergy Unknown UNKNOWN Verified 03/17/25 16:11 penicillin G Allergy Unknown unknown Verified 03/17/25 16:11 Penicillins (PENICILLINS) Allergy Unknown UNKNOWN Verified 03/17/25 16:11 quetiapine (From SEROQUEL) Allergy Unknown UNKNOWN Verified 03/17/25 16:11 risperidone (From RISPERDAL) Allergy Unknown UNKNOWN Verified 03/17/25 16:11 soy (SOY) Allergy Unknown UNKNOWN Verified 03/17/25 16:11 venlafaxine (From EFFEXOR) Allergy Unknown UNKNOWN Verified 03/17/25 16:11 BuPROPion HCl Allergy Unknown unknown Uncoded 03/17/25 16:11 Fluoxetine Allergy Unknown unknown Uncoded 03/17/25 16:11 iodinated contrast media, Allergy Unknown unknown Uncoded 03/17/25 16:11 oral Review of Systems 2 Review of Systems: All other systems are reviewed and are negative Constitutional: Reports as per HPI and Reports no additional constitutional complaints Eyes: Reports as per HPI and Reports no additional eye complaints Reports system reviewed and no additional complaints, except as documented Cardiovascular: Reports as per HPI and Reports no additional cardiovascular complaints Respiratory: Reports as per HPI and Reports no additional respiratory complaints Gastrointestinal: Reports as per HPI and Reports no additional gastrointestinal complaints Genitourinary: Reports no additional female genitourinary complaints Musculoskeletal: Reports no additional musculoskeletal complaints Skin/Breast: Reports system reviewed and no additional complaints, except as docu Psychiatric: Reports no additional psychiatric complaints Endocrine: Reports no additional endocrine complaints Hematologic/Lymphatic: Reports no additional hematologic/lymphatic complaints Allergic/Immunologic: Reports no additional allergic/immunologic complaints Reports system reviewed and no additional complaints, except as documented and Reports Abnormal speech present [facility] Past Medical History Medical History Confusion Cognitive disorder Pseudoseizures Migraine [place] toxicity Drug-induced tremor Benign essential tremor Diabetes Asthma Bipolar disorder Surgical History Hx of cholecystectomy Family History Family History Father Diabetes mellitus Heart disease Stroke Hyperlipidemia Mother Diabetes mellitus Alzheimer disease Bipolar 1 disorder Daughter Bipolar 1 disorder Maternal Aunt Alzheimer disease Paternal Aunt Alzheimer disease Social History Social History Alcohol intake: current Alcohol intake frequency: does not drink Patient Tobacco Use Status: Never used Tobacco Advance Directives: No Advance Directives Information Provided: Yes Physical Exam 2 Vital Signs: Vital Signs: Last Vital Signs Temp 97.4 F 03/17/25 16:08 Pulse 75 03/17/25 18:21 Resp 18 03/17/25 18:21 BP 141/64 H 03/17/25 18:21 Pulse Ox 99 03/17/25 18:21 O2 Del Method Room Air 03/17/25 18:21 BMI result Body Mass Index 24.8 Vital signs have been reviewed and appear to be correct. Blood pressure elevated. Heart rate normal. Respiratory rate normal. Temperature normal. Oxygen saturation normal. Appearance: Alert. Oriented X3. No acute distress. Head: Normal external exam. Normocephalic. Atraumatic. No Ren signs noted. No raccoon eyes noted Eyes: PERRLA. EOMI. Conjunctiva and sclera normal. Eyelids normal. ENT: TM's Normal. Pharynx normal. Uvula midline. Moist mucous membranes. No trismus noted. No drooling noted. No muffled voice noted. Neck: Normal inspection. Neck supple. FROM. No adenopathy. Thyroid Normal. No meningeal signs. No neck mass noted. CVS: Normal heart rate and rhythm. Heart sound normal. No murmurs noted. Pulses normal throughout. Respiratory: No respiratory distress. Painless inspiration. Breath sounds normal. No wheezes/rales/rhonchi noted. Chest nontender. No accessory muscle usage noted or decreased air movement noted. Abdomen: Soft and nontender. Bowel sounds normal in all 4 quadrants. No distention noted. No organomegaly noted. No visible injury noted. Back: No CVA tenderness. Full range of motion noted. Skin: Skin warm and dry. Normal skin color. Normal skin turgor. No rashes/lesions/lacerations noted. Extremities: No lower extremity edema. Extremities exhibit normal range of motion. Extremities nontender. Neuro: Mental status: Normal attention, orientation, memory, and affect. Cranial nerves: Pupils are equal, round and reactive to light, EOMI, visual anderson are fall, face is symmetric, facial sensations are normal. Motor examination normal muscle tone, strength to 4 extremities. DTR are +2, planter's are flexor. Sensory exam; normal coordination, no ataxia, gait stable. Cerebellar exam: Dsyqvl-gb-xnby and lvlv-zx-axit is normal. Extrapyramidal system: No tremors, no rigidity with normal facial expressions. Pronator drift not present NIH Stroke Scale Time: 16:40 Level of Consciousness: Alert Level of Consciousness Questions: Answers both questions correctly Level of Consciousness Commands: Performs both tasks correctly Best Gaze: Normal Visual: No visual loss Facial Palsy: Normal Motor Arm (Right): No drift Motor Arm (Left): No drift Motor Leg (Right): No drift Motor Leg (Left): No drift Limb Ataxia: Absent Sensory: Normal Best Language: No aphasia Dysarthia: Normal Extinction and Inattention: No abnormality Score: 0 Course Reevaluation(s) Reevaluation #1: 54-year-old female came in for evaluation of severe vertigo with persistent nausea and vomiting that persists in the ED, head CT is unremarkable, awaiting for MRI of the brain to rule out posterior circulation stroke. Patient is severely allergic to IV CT contrast head and the neck CT with IV contrast is not indicated. As per Radiology recommendation patient had skull/chest/ KUB x-ray for pre MRI clearance since the patient is unable to give a full history of a metallic retention. Patient is improving with meclizine, Valium awaiting for the MRI, signed out to Dr. Angeles for re-evaluating the patient. Time: 20:53 Reevaluation #2: 9:38 PM 03/17/2025 (Dr. Maira Angeles, D.O.) patient feeling improved after treatment. MRI is negative for acute process. She is ambulatory in the emergency department without assistance. Vertigo significantly improved. Given improvement in symptoms, she is stable at this time for discharge. Discussed importance of follow up as well as strict return precautions. Discharged home in stable condition. Medications Administered Discontinued Medications Generic Name Dose Route Start Last Admin Trade Name Freq PRN Reason Stop Dose Admin Diazepam 5 mg 03/17/25 16:35 03/17/25 16:53 Diazepam 10 Mg/2 Ml Cartridge IVPUSH 03/17/25 16:36 5 mg STAT STA Administration Ceftriaxone Sodium 1 gm/ 50 mls @ 100 mls/hr 03/17/25 16:52 03/17/25 17:44 Sodium Chloride IV 03/17/25 17:21 Infused ONCE ONE Infusion Meclizine HCl 25 mg 03/17/25 16:28 03/17/25 16:54 Meclizine Hcl 25 Mg Tablet PO 03/17/25 16:29 25 mg ONCE ONE Administration Ondansetron HCl 4 mg 03/17/25 16:35 03/17/25 16:53 Ondansetron Hcl 4 Mg/2 Ml Vial IVPUSH 03/17/25 16:36 4 mg ONCE ONE Administration Medical Decision Making Differential Diagnosis Differential Diagnoses: The differential diagnosis associated with the presentation includes ( Central vertigo, peripheral vertigo, electrolyte derangement, dehydration, severe anemia.) Admission/Observation Consideration of admission/observation: Escalation of care including admission/observation considered Lab Data MDM Lab Attestation statement: I reviewed the patient's lab results. 03/17/25 17:07 03/17/25 17:07 Labs: Lab Results 03/17/25 03/17/25 03/17/25 Range/Units 16:37 17:07 19:32 WBC 7.9 (4.8-10.8) X10*3/uL RBC 3.77 L (4.20-5.50) X10*6/uL Hgb 11.7 L (12.0-16.0) g/dl Hct 33.6 L (37.0-47.0) % MCV 89.1 (80.0-98.0) fL MCH 31.0 (27.0-33.0) pg MCHC 34.8 (31.0-35.0) g/dl RDW 11.7 (11.0-16.0) % Plt Count 251 (160-400) X10*3/uL MPV 10.5 (9.4-12.3) fL Immature Gran % (Auto) 0.6 H (0.0-0.4) % Neut % (Auto) 74.2 H (45-73) % Lymph % (Auto) 17.1 L (20-40) % [place] % (Auto) 6.3 (2-11) % Eos % (Auto) 1.4 (0-4) % Baso % (Auto) 0.4 (0-2) % Lymph # (Auto) 1.4 (1.2-4.9) X10*3/uL [place] # (Auto) 0.5 (0.1-1.2) X10*3/uL Eos # (Auto) 0.1 (0.0-0.4) X10*3/uL Baso # (Auto) 0.0 (0.0-0.2) X10*3/uL Abs Immat Gran (auto) 0.05 H (0.00-0.03) X10*3/uL Absolute Neuts (auto) 5.9 (2.0-8.3) x10*3/uL Absolute Nucleated RBC 0.000 (0.0-0.012) X10*3/uL Nucleated RBC % (auto) 0.0 (0.0-0.2) /100WBC Sodium 138 (135-145) mmol/L Potassium 4.1 (3.3-5.1) mmol/L Chloride 104 (96-108) mmol/L Carbon Dioxide 27 (22-29) mmol/L Anion Gap 11 L (12-20) BUN 14 (9-16) mg/dL Creatinine 0.71 (0.5-1.4) mg/dL Estim Creat Clear Calc 79.4 Estimated GFR > 60 Random Glucose 233 H (60-115) mg/dL Lactic Acid 2.1 H* (0.5-2.0) mmol/L Lactic Acid F/U @ 2Hr 1.9 (0.5-2.0) mmol/L Calcium 8.6 (8.4-10.2) mg/dL Total Bilirubin 0.3 (0.0-1.0) mg/dL Direct Bilirubin 0.1 (0.0-0.5) mg/dL AST 23 (5-31) U/L ALT 16 (0-31) U/L Alkaline Phosphatase 129 H (39-117) U/L Troponin I High Sens < 2.7 (<3.5-17.0) ng/L Total Protein 7.1 (6.5-8.0) g/dL Albumin 4.0 (3.5-5.0) g/dL Lipase 46 (8-78) U/L Urine Color Yellow Urine Appearance Cloudy Urine pH 7.5 (5.0-9.0) Ur Specific [place] 1.025 (1.005-1.025) Urine Protein Negative (Neg-Trace) mg/dL Urine Glucose (UA) >=1000 H (Negative) mg/dL Urine Ketones Trace (Negative) mg/dL Urine Blood Negative (Negative) Urine Nitrite Positive H (Negative) Ur Leukocyte Esterase Moderate (2+) H (Negative) Urine RBC 0-2 (0-2) /HPF Urine WBC >50 H (0-5) /HPF Ur Squamous Epith Cells 0-2 (0-2) /HPF Urine Bacteria 4+ (None Seen) Hyaline Casts 0-2 (0-2) /LPF Radiology Impression Discussion of test interpretation with radiology: I have reviewed the radiologist's reading. Radiologist Impression: MR Brain without gadolinium Findings: No restricted diffusion. No intra-axial mass or hemorrhage. No midline shift. No hydrocephalus. Vascular flow voids are intact. The orbits are normal. The sinuses and mastoid air cells are clear. No focal bone lesion. IMPRESSION: No acute findings. Independent Historian Clinical information obtained from an independent historian. History obtained from or confirmed by: Other (SUPERVISOR REACTOR FUELING) Social Determinants Patient?s care significantly limited by Social Determinants of Health including: Other Social Determinant of Health Discharge Plan Discharge Clinical Impression: Vertigo, Acute dehydration Patient Disposition: Home, Self-Care Instructions: Vertigo (ED) Additional Instructions: Your MRI, CT scan and x-rays are all normal today. You slightly dehydrated based on your blood work however, there is no injury to your kidneys and the rest of your electrolytes are relatively normal. Use meclizine as needed for dizziness. If you develop any new or worsening symptoms including: Severe headache, passing out, chest pain, difficulty breathing, numbness/tingling/weakness of the extremities or a facial droop, difficulty with word finding you should return to the emergency department immediately. Call 911 with any medical emergency. Prescriptions: New meclizine 25 mg tablet 25 mg PO TID PRN (Reason: dizziness) Qty: 30 0RF No Action propranolol 120 mg capsule,extended release 24hr 120 mg PO DAILY Qty: 30 6RF topiramate 25 mg tablet 25 mg PO DAILY Qty: 90 1RF benztropine 1 mg tablet 1 mg PO BID 30 Days Qty: 60 6RF (DME) compression panty,small-medium Misc See Rx Instructions .Route Qty: 1 0RF Rx Instructions: As directed diclofenac sodium [Arthritis Pain (diclofenac)] 1 % gel 2 g topical QID PRN (Reason: pain (scale score 1-3)) Qty: 100 0RF Rx Instructions: apply to ankle/foot lurasidone 120 mg tablet 120 mg PO DAILY pravastatin 40 mg tablet 40 mg PO DAILY Levemir U-100 Insulin 100 unit/mL solution See Rx Instructions subcut .COMPLEX Rx Instructions: 34 units subcut daily; levothyroxine 50 mcg tablet 50 mcg PO DAILY oxcarbazepine 600 mg tablet 600 mg PO BID pantoprazole 20 mg tablet,delayed release (DR/EC) 20 mg PO DAILY budesonide-formoterol [Symbicort] 160-4.5 mcg/actuation HFA aerosol inhaler 2 puff inhalation Q12H divalproex 500 mg tablet,delayed release (DR/EC) 500 mg PO .am Incruse Ellipta 62.5 mcg/actuation blister with device 1 inh PO DAILY (DME) insulin syringe-needle U-100 [BD Insulin Syringe Ultra-Fine] 0.5 mL 31 gauge x 5/16 syringe See Rx Instructions .ROUTE .MEDSUPPLY Qty: 10 Rx Instructions: As directed (DME) FreeStyle Lite Strips Strip See Rx Instructions Not Applicable TID Qty: 10 Rx Instructions: As directed divalproex 500 mg tablet extended release 24 hr 1,000 mg PO BEDTIME albuterol sulfate 90 mcg/actuation HFA aerosol inhaler 0 mcg inhalation Certavite-Antioxidant 18-400 mg-mcg tablet 1 tab PO DAILY (DME) lancets [FreeStyle Lancets] 28 gauge misc See Rx Instructions .ROUTE TID Qty: 100 Rx Instructions: As directed cetirizine 10 mg tablet 10 mg PO DAILY PRN alcohol swabs Pads, Medicated topical TID (DME) pen needle, diabetic 31 gauge x 3/16 needle See Rx Instructions .ROUTE DAILY Qty: 1200 Rx Instructions: As directed Print Language: Guyanese
[2025-03-17 16:47] LABS: Appearance Urine Cloudy; Glucose Urine UA >=1000 mg/dL (Negative); PH 7.5 (5.0-9.0); Specific Gravity - Urine 1.025 (1.005-1.025); UMIC TRIGGER UACC YES
[2025-03-17 16:49] LABS: UACC Culture Trigger YES
[2025-03-17] MEDS: diazePAM 10 MG/2 ML CARTRIDGE 5 MG IVPUSH (16:53)
[2025-03-17 17:14] LABS: MANUAL DIFF FLAG NO
[2025-03-17 17:15] LABS: Hematocrit 33.6 % (37.0-47.0); Hemoglobin 11.7 g/dl (12.0-16.0); Imm Gran Abs Auto 0.05 X10*3/uL (0.00-0.03); Imm Gran Pct Auto 0.6 % (0.0-0.4); Lymphocytes Absolute Auto 1.4 X10*3/uL (1.2-4.9); Mean Corpuscular HGB Conc 34.8 g/dl (31.0-35.0); Mean Corpuscular Hemoglobin 31.0 pg (27.0-33.0); Mean Corpuscular Volume 89.1 fL (80.0-98.0); NRBC Abs Auto 0.000 X10*3/uL (0.0-0.012); NRBC Pct Auto 0.0 /100WBC (0.0-0.2); Platelet Count 251 X10*3/uL (160-400); Red Blood Count 3.77 X10*6/uL (4.20-5.50); White Blood Count 7.9 X10*3/uL (4.8-10.8)
[2025-03-17 17:33] LABS: Alanine Aminotransferase 16 U/L (0-31); Albumin Level 4.0 g/dL (3.5-5.0); Alkaline Phosphatase 129 U/L (39-117); Anion Gap 11 (12-20); Aspartate Amino Transferase 23 U/L (5-31); Blood Urea Nitrogen 14 mg/dL (9-16); Calcium 8.6 mg/dL (8.4-10.2); Carbon Dioxide 27 mmol/L (22-29); Chloride 104 mmol/L (96-108); Creatinine Clr Calc Pharmacy 79.4; Estimated Glomerular Filt Rate > 60; Lipase 46 U/L (8-78); Potassium 4.1 mmol/L (3.3-5.1); Sodium 138 mmol/L (135-145); Total Protein 7.1 g/dL (6.5-8.0)
--- NOTE | 2025-03-17 17:33 | PC.NURSE ---
Unable to do MRI screening form due to altered mental status. Pt vomited 500mL and doesn't recall this shortly after vomiting. Vomiting witnessed by this RN. Pt is a poor historian at baseline. Spoke with MRI staff regarding this, MRI to follow-up with Dr. Gomez regarding additional screening/imaging protocols to proceed with obtaining MRI. I notified Dr. Gomez to speak with MRI staff, [phone].
[2025-03-17 17:41] LABS: Troponin-I High Sensitivity < 2.7 ng/L (<3.5-17.0)
--- OUTSIDE RECORDS SUMMARY | 2025-03-17 17:41 | XMS_ITS | Clinical Summary ---
Author Organization [facility] Address [address] [facility] [address] [place] [id number] Phone Care Team Providers Care Sample Checker Name Role Phone Lucia Leon MD Unavailable [phone] Florencia Escalanet NP Primary Care Provider [phone] Allergies Active Allergy Reactions Criticality Noted Date Comments Barium Sulfate Other (See Comments) Bupropion Hcl Other (See Comments) Cefaclor Other (See Comments) Codeine Itching Codeine Sulfate Itching 03/14/2017 Fluoxetine Other (See Comments) Gabapentin Hives Lactose Unknown 03/14/2017 [place] Metformin Anaphylaxis,Other (See Comments) High 03/14/2017 Esomeprazole [...] 03/14/2018 03/14/2017, 06/16/2016 POTASSIUM LEVEL 03/14/2018 03/14/2017 RSV VACCINE (1 - Risk 50-74 years 1-dose series) 2018 ZOSTER VACCINES (1 of 2) 2018 TSH [...] AM EDT Pure hypercholesterolemia BASIC METABOLIC PANEL (BMP) Routine 03/14/2017 11:28 AM EDT Benign essential hypertension from Last 3 Months or Most Recently Relevant to Health Maintenance Results * (ABNORMAL) POCT Hemoglobin A1c (05/04/2018 2:01 PM EST) Hemoglobin A1c 6.3(A) 4.2 - 5.8 % [facility] Other 05/04/2018 2:01 PM EST us Lucia Leon MD LAB POCT ENTER/EDIT ORDERABLES Final Result [facility] [address] [place] [address] * Outside TSH Level (10/13/2017) TSH - External 1.66 0.5 - 5 uIU/L us Historical Provider LAB BLOOD ORDERABLES Roxanne l Result * (ABNORMAL) Lipid panel (03/14/2017 11:28 AM EDT) [facility] HDL 46 mg/dL [facility] Comment: Interpretation: Risk Level Females Decreased >55mg/dL Average 50-55 mg/dL Increased <50 mg/dL CHOLESTEROL 251(H) 0 - 240 mg/dL [facility] TRIGLYCERIDES 197(H) 30 - 160 mg/dL [facility] LDL 166(H) 50 - 129 mg/dL [facility] Comment: LDL levels in terms of risk for coronary heart disease: <100 mg/dL: Optimal 100-129 mg/dL: Near or above optimal 130-159 mg/dL: Borderline high 160-189 mg/dL: High >190 mg/dL: Very High CARDIAC RISK RATIO 5.5(H) 3.3 - 4.4 C [facility] Blood 03/14/2017 11:2 8 AM EDT 03/14/2017 11:32 AM EDT us Kesha Joshi MD LAB BLOOD BKR ORDERABLES Fin al Result Performing Organization Address City/State[facility] Co de Phone Number [address] [address] * (ABNORMAL) Basic metabolic panel (03/14/2017 11:28 AM EDT) [facility] SODIUM 140 133 - 146 mmol/L [facility] CHLORIDE 104 96 - 108 mmol/L [facility] POTASSIUM 5.3(H) 3.3 - 5.1 mmol/L [facility] CO2 20(L) 21 - 35 mmol/L [facility] BUN 14 6 - 19 mg/dL [facility] CREATININE 0.50 0.5 - 1.5 mg/dL [facility] GLUCOSE 143(H) 70 - 99 mg/dL [facility] CALCIUM 9.0 8.4 - 10.3 mg/dL [facility] EGFR >60 >60 mL/min/1.7 3m2 [facility] Comment:Abnormal if <60. If patient is -Slovak, multiply the result by 1.21. ANION GAP 21(H) 10 - 20 mmol/L [facility] Blood 03/14/2017 11:2 8 AM EDT 03/14/2017 11:32 AM EDT us Kesha Joshi MD LAB BLOOD BKR ORDERABLES Fin al Result Performing Organization Address City/State/[facility] Co de Phone Number [facility] [address] [place] [address] from Last 3 Months or Most Recently Relevant to Health Maintenance Insurance MEDICARE PART A & B [facility] MEDICARE PART A & [place] [facility] [address] [place] [address] MEDICARE PART A & [place] & [facility] Care Teams Sample Checker Relationship Specialty Start Date End Date Florencia Escalante NP [address] [place] [address] PCP - General Nurse Practitioner 11/02/17 Lucia Leon MD [address] [place] [id number] [email or web address] Historical LMR Provider 03/05/17 Additional Source Comments The information contained in this document represents components of the legal health record. It is not the complete legal health record.[facility]
--- OUTSIDE RECORDS SUMMARY | 2025-03-17 17:41 | XMS_ITS | Encounter Summary ---
Author Organization [employer] Address [address] [facility] [address] [place] [address] Care Team Providers Care Sewer And Inspector Name Role Phone Unavailable Primary Care Provider Unavailabl e Encounter Details Date Type Department Care Team (Latest Contact Info) Description 05/13/2021 Abstract [facility] CONVERSIONS Dental, Provider, DDS Social History Tobacco [...]
--- OUTSIDE RECORDS SUMMARY | 2025-03-17 17:41 | XMS_ITS | Clinical Summary ---
Author Organization [employer] Address [address] [facility] [address] [place] [address] Care Team Providers Care Woodworking Machine Operator Name Role Phone Unavailable Primary Care Provider Unavailabl e Allergies Active Allergy Reactions Criticality Noted Date Comments Gabapentin Hives 09/04/2024 Lisinopril 09/04/2024 low bp [place] 09/04/2024 Loratadine 09/04/2024 Metformin Anaphylaxis,Other High 03/14/2017 [...] mouth in the morning. 05/11/20 Active Multiple Vitamins-Nowata als (CertaVite/Ant ioxidants) tablet Take 1 tablet [...] hyperlipidemia 09/04/2024 Intermittent urinary incontinence 09/04/2024 Dementia ([facility]) 12/15/2022 Diabetes 12/15/2022 Hypertension 05/05/2017 Sore throat 03/28/2017 Asthma 03/14/2017 Fibromyalgia 03/14/2017 Tremor 03/14/2017 Anxiety disorder 03/14/2017 Eczema 09/10/2013 Restless legs 09/10/2013 Rheumatoid arthritis ([facility]) 09/10/2013 Myopia 05/03/2005 Migraine 04/21/2005 Dyspnea 10/15/2004 Bipolar disorder 12/05/2002 Overview (09/04/2024): she does not see a therapist no lithium with lisinopril as she got toxicity bid home nursing to manage meds She liked her psych right now and says that they are dong labs GERD (gastroesophageal reflux disease) 3 Hypothyroidism 08/20/2002 Overview (09/04/2024): Has been stable on meds for many years Seizure ([facility]/HCC) 08/20/2002 Social History Tobacco Use Types Packs/Day [...] Most Recently Relevant to Health Maintenance [facility]
--- OUTSIDE RECORDS SUMMARY | 2025-03-17 17:41 | XMS_ITS | Encounter Summary ---
Author Organization [employer] Address [address] [place] [address] Care Team Providers Care Apartment Leasing Specialist Name Role Phone Unavailable Primary Care Provider Unavailabl e Reason for Visit * Reason Onset Date Comments antibiotic 02/16/2023 Encounter Details Date Type Department Care Team ([facility] Contact Info) Description 02/16/2023 Telephone [facility] [address] [place] [address] Lennie Mcnamara DDS antibiotic Social History Tobacco [...] to ask that script be sent to [facility] on [address] in [place]. Pharmacy has been updated in the chart. * Telephone Encounter - Maya Carranza - 02/16/2023 12:48 PM EDT Patient called instating that the infection she had on the wisdom tooth that has to be extracted isback and she would like to have an antibiotic sent to the pharmacy. 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
--- NOTE | 2025-03-17 17:44 | PC.NURSE ---
Away for imaging for MRI clearance at this time.
[2025-03-17 19:12] LABS: Reflex Lactate? Lactic Acid Added
[2025-03-17 19:56] LABS: ~Lactic Acid-LAB USE ONLY 1.9 mmol/L (0.5-2.0)
--- NOTE | 2025-03-17 20:01 | PC.NURSE ---
pt taken to MRI by patient transport.
--- NOTE | 2025-03-17 20:45 | PC.NURSE ---
return from MRI
--- NOTE | 2025-03-17 21:35 | PC.NURSE ---
pt is axox4 ambulated with steady gait without assistive devices which is baseline. MD [place] made aware. patient is reporting dizziness resolved and is eager to be discharged home. can have family member pick her up. awaiting d/c papers, vss.
--- OUTSIDE RECORDS SUMMARY | 2025-05-01 19:00 | XMS_ITS | Clinical Summary ---
Author Organization Unknown Care Team Providers Care Returned Goods Receiving Clerk Name Role Phone KEELEY DIAZ, CRISTI Unavailable Unavailable KIT OLIVARES, ROSEANNA Unavailable Unavailable Payers Payer Name Policy Type Policy Number Effective Date Expira tion Date [place] [id number] ON DEMAND MEDICARE - [facility] BILLING - ABN [id number] Problems Condition Name Condition Details Condition Category [...] 818 00:00: 00 HYPERLIPIDEM IA, UNSPECIFIED Active 818 00:00: 00 HYPOTHYROIDI SM, UNSPECIFIED Active 818 00:00: 00 UNSPECIFIED URINARY INCONTINENCE Active 818 00:00: 00 MIGRAINE, UNSP, NOT INTRACTABLE, WITHOUT STATUS MIGRAINOSUS Active 818 00:00: 00 CONVERSION DISORDER WITH SEIZURES OR CONVULSIONS Active 818 00:00: 00 ABNORMAL WEIGHT LOSS Active 18 00:00: 00 Allergies, Adverse Reactions, Alerts Allergy Name Allergy Type Status Severity Reaction(s) Onset Date Inactive Date Treating Clinician Comments EFFEXOR Propensity to adverse reactions Active - 13:05: 29 PAXIL Propensity to adverse reactions Active 01-03 13:06: 24 PERCOCET Propensity to adverse reactions Active 01-03 13:06: 31 PROZAC Propensity to adverse reactions Active 01-03 13:06: 10 TRAMADOL Propensity to adverse reactions Active 01-03 13:07: 36 SEROQUEL Propensity to adverse reactions Active 01-03 13:06: 54 METFORMIN Propensity to adverse reactions Active 01-03 13:07: 28 LISINOPRIL Propensity to adverse reactions Active 01-03 13:07: 14 GABAPENTIN Propensity to adverse reactions Active 01-03 13:07: 08 SOY Propensity to adverse reactions Active 01-03 13:07: 01 LORATADINE Propensity to adverse reactions Active 01-03 13:07: 20 RISPERIDONE Propensity to adverse reactions Active 01-03 13:06: 46 BREO ELLIPTA Propensity to adverse reactions Active 01-03 13:05: 22 LACTOSE MONOHYDRATE Propensity to adverse reactions Active 01-03 13:06: 02 Medications Ordered Medication Name Filled Medication Name Start Date Stop Date Current Medication? Ordering Clinician Indication Dosage Frequency Signature (SIG) Comments Components Advair HFA 45 mcg-21 mcg/actuati on aerosol inhaler 01-03 00:00: 00 Yes [id number] 2 puff 2 TIMES DAILY 2 puff 2 TIMES DAILY (route: inhalation ) Med Classific ation: Respirato ry Therapy Agents albuterol sulfate HFA 90 mcg/actuati on aerosol inhaler 01-03 00:00: 00 Yes [id number] 1 puff EVERY 4 HOURS 1 puff EVERY 4 HOURS (route: inhalation ) Med Classific ation: Respirato ry Therapy Agents benztropine 1 mg tablet 01-03 00:00: 00 Yes [id number] 1 tablet 2 TIMES DAILY 1 tablet 2 TIMES DAILY (route: oral) Med Classific ation: Central Nervous System Agents cetirizine 10 mg tablet 01-03 00:00: 00 Yes [id number] 1 tablet DAILY 1 tablet DAILY (route: oral) Med Classific ation: Respirato ry Therapy Agents Daily-Pato tablet 01-03 00:00: 00 Yes [id number] 1 tablet DAILY 1 tablet DAILY (route: oral) Med Classific ation: Electroly te Balance-N utritiona l Products Depakote ER 250 mg tablet,exte nded release 01-03 00:00: 00 03-02 23:59 :00 No [id number] 2 tablet DAILY 2 tablet DAILY (route: oral) Med Classific ation: Central Nervous System Agents glucose 4 gram chewable tablet 01-03 00:00: 00 Yes [id number] 16 g DIRECTED 16 g DIRECTED (route: oral) Med Classific ation: Endocrine Incruse Ellipta 62.5 mcg/actuati on powder for inhalation 01-03 00:00: 00 Yes [id number] 1 inhalat ion DAILY 1 inhalation DAILY (route: inhalation ) Med Classific ation: Respirato ry Therapy Agents Latuda 120 mg tablet 01-03 00:00: 00 Yes [id number] 1 tablet BEDTIME 1 tablet BEDTIME (route: oral) Med Classific ation: Central Nervous System Agents levothyroxi ne 50 mcg tablet 01-03 00:00: 00 Yes [id number] 1 tablet DAILY 1 tablet DAILY (route: oral) Med Classific ation: Endocrine Mucinex 600 mg tablet, extended release 01-03 00:00: 00 Yes [id number] Per instruc tions DIRECTED Per instructio ns DIRECTED (route: oral) Med Classific ation: Respirato ry Therapy Agents naproxen 500 mg tablet 01-03 00:00: 00 03-02 23:59 :00 No [id number] 1 tablet 2 TIMES DAILY 1 tablet 2 TIMES DAILY (route: oral) Med Classific ation: Analgesic , Anti-infl ammatory or Antipyret ic oxcarbazepi ne 600 mg tablet 01-03 00:00: 00 Yes [id number] 1 tablet DAILY 1 tablet DAILY (route: oral) Med Classific ation: Central Nervous System Agents pantoprazol e 20 mg tablet,onel yed release 01-03 00:00: 00 Yes [id number] 1 tablet DAILY 1 tablet DAILY (route: oral) Med Classific ation: Gastroint estinal Therapy Agents pravastatin 40 mg tablet 01-03 00:00: 00 Yes [id number] 1 tablet DAILY 1 tablet DAILY (route: oral) Med Classific ation: Cardiovas cular Therapy Agents Topamax 25 mg tablet 01-03 00:00: 00 Yes [id number] 1 tablet DAILY 1 tablet DAILY (route: oral) Med Classific ation: Central Nervous System Agents amoxicillin 500 mg tablet 01-29 00:00: 00 02-05 23:59 :00 No [id number] 1 tablet 3 TIMES DAILY 1 tablet 3 TIMES DAILY (route: oral) Med Classific ation: Anti-Infe ctive Agents insulin glargine (U-100) 100 unit/mL (3 mL) subcutaneou s pen 2024-05 0-14 00:00: 00 Yes [id number] 18 unit EVERY AM 18 unit EVERY AM (route: subcutaneo ) Med Classific ation: Endocrine Depakote ER 500 mg tablet,exte nded release 2024-05 0- 00:00: 00 Yes [id number] 1 tablet DAILY 1 tablet DAILY (route: oral) Med Classific ation: Central Nervous System Agents Depakote ER 500 mg tablet,exte nded release 2024-05 0- 00:00: 00 Yes [id number] 2 tablet DAILY 2 tablet DAILY (route: oral) Med Classific ation: Central Nervous System Agents propranolol ER 120 mg capsule,24 hr,extended release 2024-05 0- 00:00: 00 Yes [id number] 1 capsule DAILY 1 capsule DAILY (route: oral) Med Classific ation: Cardiovas cular Therapy Agents Vital Signs Vital Name Observation Time Observation Value Commen ts Pulse 2025-03-12 06:39:00.000 66 /min Pulse 2025-03-05 06:31:00.000 67 /min Respirations 2025-03-13 06:26:00.000 16 /min Respirations 2025-03-12 06:39:00.000 18 /min Respirations 2025-03-11 06:52:00.000 16 /min Respirations 2025-03-10 06:31:00.000 16 /min Respirations 2025-03-07 06:40:00.000 16 /min Respirations 2025-03-05 06:31:00.000 16 /min Systolic Blood Pressure 2025-03-12 06:39:00.000 146 mm [Hg] Systolic Blood Pressure 2025-03-05 06:31:00.000 149 mm [Hg] Diastolic Blood Pressure 2025-03-12 06:39:00.000 83 mm [Hg] Diastolic Blood Pressure 2025-03-05 06:31:00.000 87 mm [Hg] Plan of Treatment Planned Activity [...] HEALTH.] Future Scheduled Test SKILLED NU RSE TO [...] CURRENT PAIN MANAGEMENT REGIMEN.] Future Scheduled Test SKILLED NU RSE TO O/A OF PATIENTS MENTAL/BEHAVIORAL STATUS, ASSESS VITAL SIGNS WEEKLY ALLOW 2 PRNS FOR MEDICATION MANAGEMENT. [code = SKILLED NURSE TO O/A OF PATIENTS MENTAL/BEHAVIORAL STATUS, ASSESS VITAL SIGNS WEEKLY ALLOW 2 PRNS FOR MEDICATION MANAGEMENT.] Future Scheduled Test SKILLED NU RSE WILL MAINTAIN SITUATIONAL AWARENESS FOR SAFETY AND WILL NOTIFY CLINICAL CLINICAL LAB CLERK AND PHYSICIAN/PROVIDER WITH ANY CHANGE IN CONDITION. [code = SKILLED NURSE WILL MAINTAIN SITUATIONAL AWARENESS FOR SAFETY AND WILL NOTIFY CLINICAL CLINICAL LAB CLERK AND PHYSICIAN/PROVIDER WITH ANY CHANGE IN CONDITION.] Future Scheduled Test SKILLED NU RSE FOR O/A OF GENERAL HEALTH STATUS OF PAIN, CARDIAC, RESPIRATORY, GASTROINTESTINAL, GENITOURINARY, SKIN, NEUROLOGIC, ENDOCRINE SYSTEMS TO IDENTIFY CHANGES ASSOCIATED WITH EXACERBATION FOR EARLY INTERVENTION OF COMPLICATIONS DAILY [code = SKILLED NURSE FOR O/A OF GENERAL HEALTH STATUS OF PAIN, CARDIAC, RESPIRATORY, GASTROINTESTINAL, GENITOURINARY, SKIN, NEUROLOGIC, ENDOCRINE SYSTEMS TO IDENTIFY CHANGES ASSOCIATED WITH EXACERBATION FOR EARLY INTERVENTION OF COMPLICATIONS DAILY] Future Scheduled Test SKILLED NU RSE TO [...] PROBLEMS.] Future Scheduled Test SKILLED NU RSE TO [...] NU RSE FOR O/A AND SKILLED TEACHING OF COPING SKILLS TO MANAGE ANXIETY AND MAINTAIN SAFETY. [code = SKILLED NURSE FOR O/A AND SKILLED TEACHING OF COPING SKILLS TO MANAGE ANXIETY AND MAINTAIN SAFETY.] Future Scheduled Test SKILLED NU RSE [...] AND PSYCHOSOCIAL SUPPORT SERVICES.] Future Scheduled Test MEDICATION S WILL BE HELD AND STORED IN LOCKBOX [code = MEDICATIONS WILL BE HELD AND STORED IN LOCKBOX] Future Scheduled Test SKILLED NU RSE FOR [...] LOG.] Future Scheduled Test SKILLED NU RSE FOR OBSERVATION AND ASSESSMENT TO IDENTIFY CHANGES ASSOCIATED WITH DEMENTIA AND TEACHING RELATED TO SAFETY MEASURES TO PREVENT INJURY, ELOPEMENT RISKS, BEHAVIOR CHANGES, ACTIVITIES, AND ENVIRONMENTAL CHANGES ALL SECONDARY TO IMPAIRED COGNITIVE STATUS. [code = SKILLED NURSE FOR OBSERVATION AND ASSESSMENT TO IDENTIFY CHANGES ASSOCIATED WITH DEMENTIA AND TEACHING RELATED TO SAFETY MEASURES TO PREVENT INJURY, ELOPEMENT RISKS, BEHAVIOR CHANGES, ACTIVITIES, AND ENVIRONMENTAL CHANGES ALL SECONDARY TO IMPAIRED COGNITIVE STATUS.] Future Scheduled Test SKILLED NU RSE TO INSTRUCT ON SAFETY MEASURES TO PREVENT INJURY SECONDARY TO SEIZURE DISORDER/IMPAIRED NEUROLOGICAL STATUS. [code = SKILLED NURSE TO INSTRUCT ON SAFETY MEASURES TO PREVENT INJURY SECONDARY TO SEIZURE DISORDER/IMPAIRED NEUROLOGICAL STATUS.] Goal 2025-02-27 Patient Goal - TO TAKE MY ME DS Goal Patient Goal - TO TAKE MY ME DS Goal Provider Goal - A PLAN OF CARE WILL BE ESTABLISHED THAT MEETS PATIENT'S [facility] NEEDS AND INCLUDES PATIENT GOAL FOR HOME HEALTH. Goal Provider Goal - PATIENT/CAREGIVER WILL VERBALIZE/DEMONSTRATE [...] OF CERTIFICATION PERIOD. Goal Provider Goal - ALTERED MENTAL/BEHAVIORAL STATUS WILL BE IDENTIFIED PROMPTLY AND INTERVENTION INITIATED QUICKLY TO MINIMIZE ASSOCIATED RISKS THROUGHOUT CERTIFICATION PERIOD. Goal Provider Goal - PATIENT WILL REMAIN SAFE IN THE COMMUNITY AND WILL BE FREE OF DANGER TO SELF AND OTHERS THROUGHOUT THE CERTIFICATION PERIOD. Goal Provider Goal - CHANGE IN GENERAL HEALTH STATUS WILL BE IDENTIFIED AND REPORTED TO PHYSICIAN FOR PROMPT INTERVENTION TO MINIMIZE ASSOCIATED RISKS THROUGHOUT CERTIFICATION PERIOD. Goal Provider Goal - PATIENT/CAREGIVER WILL VERBALIZE UNDERSTANDING OF EDUCATION PROVIDED ON MEDICATIONS BY THE END OF THE CERTIFICATION PERIOD. Goal Provider Goal - PATIENT WILL COMPLY WITH MEDICATION WHEN SKILLED NURSE ADMINISTERS AND PRE-POURS MEDICATION THROUGHOUT CERTIFICATION PERIOD. Goal Provider Goal - PATIENT WILL REMAIN SAFE WITHOUT DECOMPENSATION IN DEPRESSIVE CONDITION, WHILE MAINTAINING OPTIMAL LEVEL OF MENTAL HEALTH AND WELL BEING THROUGHOUT CERTIFICATION PERIOD. Goal Provider Goal - PATIENT WILL BE ABLE TO PERFORM DAILY FUNCTIONS AND HAVE OPTIMAL IMPROVEMENT IN LEVEL OF ANXIETY THROUGHOUT CERTIFICATION PERIOD. Goal Provider Goal - PSYCHOSOCIAL NEEDS WILL BE IDENTIFIED AND PLAN IMPLEMENTED TO MINIMIZE RISK THROUGHOUT CERTIFICATION PERIOD. Goal Provider Goal - MEDICATION WILL BE STORED IN LOCKBOX FOR SAFETY. Goal Provider Goal - PATIENT/CAREGIVER WILL VERBALIZE/DEMONSTRATE KNOWLEDGE OF DIABETIC MANAGEMENT. CHANGES IN DIABETIC STATUS WILL BE IDENTIFIED AND REPORTED TO PHYSICIAN FOR PROMPT INTERVENTION THROUGHOUT THE CERTIFICATION PERIOD. Goal Provider Goal - BLOOD SUGAR READING WILL BE OBTAINED ORDERED THROUGHOUT CERTIFICATION PERIOD. Goal Provider Goal - PATIENT/CAREGIVER WILL VERBALIZE /DEMONSTRATE APPROPRIATE ENVIRONMENTAL/SAFETY MODIFICATIONS IN RESPONSE TO BEHAVIOR/COGNITIVE CHANGES ASSOCIATED WITH DEMENTIA DIAGNOSIS THROUGHOUT THE CERTIFICATION PERIOD. Goal Provider Goal - PATIENT/CAREGIVER WILL VERBALIZE/DEMONSTRATE SEIZURE PRECAUTIONS AND CARE OF PATIENT TO PROMOTE SAFETY AND PREVENT INJURY BY THE END OF THE CERTIFICATION PERIOD. Progress Notes Progress Notes <paragraph>[Visit Date: 2024 by JACK ROLAND RN]:</paragraph><paragraph>03/16/25 DAILY [facility] VISIT MADE TO ASSESS MENTAL HEALTH STATUS SAFETY MEDICATION COMPLIANCE A.M. MEDS ADMINISTERED WITH DIRECT OBSERVATION P.M. MEDS PRE POURED. LANTUS 18 UNITS ADMINISTERED SQ INTO LEFT ARM. RBS 380 - DENIES HYPERGLYCEMIA</paragraph><paragraph>PATIENT NONCOMPLIANT WITH DIABETIC DIET</paragraph> Encounters Start Date/Time End Date/Time Encounter Type Admission Type Attending [facility] Care Facility Care Department Encounter ID Discharge Date Discharge Status Discharge Condition Discharge Reason Percent Goals Met 2025-03-04 00:00:00 2025-05-02 00:00:00 Outpatient RECERTIFIC ATION ROSEANNA PANTOJA [facility] [id number]
== END 2025-03-17 21:51 | disposition home or self-care (01) ==
PROVIDERS: Emergency Medicine; Emergency Provider Emergency Medicine
DX: N39.0 Urinary tract infection, site not specified (principal); E86.0 Dehydration; R42 Dizziness and giddiness; R82.90 Unspecified abnormal findings in urine; R11.2 Nausea with vomiting, unspecified; E11.9 Type 2 diabetes mellitus without complications; J45.909 Unspecified asthma, uncomplicated; Z79.899 Other long term (current) drug therapy; Z79.4 Long term (current) use of insulin
CPT/HCPCS: 36415; 70250; 70450; 70551; 71045; 74018; 80048; 80076; 81001; 83605; 83690; 84484; 85025; 87040; 87086; 87088; 87147; 87186; 93005; 96365; 96372; 99285; J0696; J2405; J3360

== ENCOUNTER → 2025-03-17 16:22 | Outpatient (BNV) | payer MEDICARE, MEDICAID, SELFPAY | PROVIDERS: Emergency Provider Emergency Medicine; Visit Provider Radiology Diagnostic Radiology | DX: R42 Dizziness and giddiness (principal); Z01.810 Encounter for preprocedural cardiovascular examination; Z01.818 Encounter for other preprocedural examination | CPT/HCPCS: 70250; 70450; 70551; 71045; 74018 ==

== ENCOUNTER → 2025-03-17 16:28 | Outpatient (BNV) | payer MEDICARE, MEDICAID, SELFPAY | PROVIDERS: Emergency Provider Emergency Medicine; Visit Provider Internal Medicine Cardiovascular Disease | DX: R94.31 Abnormal electrocardiogram [ECG] [EKG] (principal); R42 Dizziness and giddiness | CPT/HCPCS: 93010 ==